=== PATIENT | male | born 1945 | race Caucasian/White ===

== ENCOUNTER → 2016-05-24 | Outpatient (CLI) | payer BC ==
[~2016-05-24] MED LIST: ASPI325T45 PO; ATEN-173 PO; ATOR-26 PO; IMDSR30 PO; LSN20 PO; MULT-506 PO; NRV5 PO; NTRGSL/4 UT; PLV75 PO
--- NOTE | 2016-05-25 06:36 | PAP/PSG TECHNICIAN REPORT ---
[facility] Bromination Equipment Operator Polysomnogram Report Study name: None Report date: 05/25/2016 Study date: 05/24/2016 Referring Physician: Juanis Peres M.D. Name: MARIMAR BALDWIN Interpreting Physician: Bucky Peres M.D. Date of : 1945 Bromination Equipment Operator: Kaylynn Herrera RPS. Sex: Male Age: 71 StudyType: PSG Weight: 218 lbs Height: 71 years, Height 5' 10" Neck Circum: 16 inches BMI: 31.28 Medications: Atorvastatin 80 mg, Aspirin 81 mg, Amlodipine 5 mg, lisinopril 20 mg, Flonase 50 mcg/ACT, Atenolol 25 mg, Plavix 75 mg, Imdur 60 mg, NitroStat 0.4 mg Patient History 71 yr. old male here for a possible split night sleep study in room 8. Patient complains of snoring. Patients [place] sleepiness scale score is 7/24. Parameters Monitored NPSG: E1-M2, E2-M1, Fp1-M2, Fp2-M1, F3-M2, F4-M2, F4-M1, C3-M2, C4-M2, C4-M1, O1-M2, O2-M2, O2-M1, T3-M2, T4-M1, P3-M2, P4-M1, CHIN1, CHIN2, HR, EKG, Legs, PFLOW, SNOR, FLOW, CFLOW, Tidal Volume, THOR, ABDO, SpO2, PLTH, CPRESS, ETCO2 Wave, ETCO2, pH Sleep Architecture Sleep Stages Time at Lights Off 10:49:11 PM STAGES Time (min.) TST (%) Time at Lights On 5:35:41 AM Wake 187.0 -- Total Recording Time (TRT) 406.50 min. N1 42.0 19 Total Sleep Period (TSP) 390.5 min. N2 173.0 79 Total Sleep Time (TST) 219.5min. N3 4.5 2 Awake Time 187.0 min. REM 0.0 0 Wake after Sleep Onset 172.0 min. Sleep Efficiency (SE) 54 % Sleep Onset Latency (SAMAN) 15.0 min. Number of Stage 1 Shifts None Awakenings 15 Stage Changes 50 Number of REM periods N/A REM 0.0 0 REM Latency NONE min. NREM 219.5 100 Body Position Analysis Supine Right Left Side Prone Vertical Total Sleep Time (min.) 397.1 0.0 0.0 0.00 0.0 9.4 Total Sleep Time (%) 100% 0% 0% 0 0% N/A% Total Sleep Time REM (min.) 0.0 0.0 0.0 None 0.0 0.0 Total Sleep Time NREM (min.) 219.5 0.0 0.0 None 0.0 0.0 Intermittent Wake (min.) 177.6 0.0 0.0 None 0.0 9.4 Total Sleep Period (%) 100% None None None None None Arousals Myoclonus (PLM) * Events Count Index Events Count Index Spontaneous 2 1 Events Awake (PLMW) 170 54.5 Respiratory 3 0.8 Events Asleep w/ Arousal (PLMA) 11 3.0 PLM 9 3 Events Asleep w/o Arousal (PLMS) 223 61.0 Snoring 0 0 Total Asleep 234 64.0 Total 14 4 Total 404 60 Respiratory Analysis * CA OA MA CH H RERA Total Count 1 4 0 0 30 0 35 Index 0.3 1.1 0.0 0 8.2 0 9.6 Mean Duration 17.4 22.3 0.0 0.00 24.0 0.0 23.6 Longest Duration 17.4 32.6 0.0 0.00 0.0 0.0 48.1 Respiratory Event Summary Total Supine ~Supine Right Left Prone REM NREM Apneas Count 5 5 N/A N/A N/A N/A N/A 5 Index 1.4 1 N/A N/A N/A N/A N/A 1 Hypopneas (4% Desat) Count 30 30 N/A N/A N/A N/A N/A 30 Index 8.2 8.2 N/A N/A N/A N/A N/A 8.2 Apneas & All Hypopneas Count 35 35 N/A N/A N/A N/A N/A 35 Index 9.6 10 N/A N/A N/A N/A N/A 9.6 Respiratory Events (Auditing Specialist+All Hyp+RERA) Count 35 35 N/A N/A N/A N/A N/A 35 Index 9.6 10 N/A N/A N/A N/A N/A 9.6 Respiratory Related Arousal Count 3 35 N/A N/A N/A N/A N/A 3 Index 0.8 1 N/A N/A N/A N/A N/A 1 Snoring Analysis Supine Right Left Prone REM NREM Total Snore duration 58.6 min Snores count 1,727 N/A N/A N/A N/A 1,727 1,727 Snore mean duration 2.0 Sec Snores index 472 N/A N/A N/A N/A 472.1 472.1 TST with snoring (%) 26.7% Desaturation Event Summary: Minimum %SpO2 Event Count Mean/Min/Max Duration(sec.) Desaturation Index % Time In Bed > 90 37 29.8 / 6.0 / 60.0 5.9 96.9 86 - 90 1 6.0 / 6.0 / 6.0 5.0 3.1 81 - 85 0 N/A 0.0 0.0 76 - 80 0 N/A 0.0 0.0 71 - 75 0 N/A 0.0 0.0 66 - 70 0 N/A 0.0 0.0 61 - 65 0 N/A 0.0 0.0 56 - 60 0 N/A 0.0 0.0 51 - 55 0 N/A 0.0 0.0 < 50 0 N/A 0.0 0.0 Total REM NREM Awake <50% 0.0 min. 0.0 min. 0.0 min. 0.0 min. 51 - 60% 0.0 min. 0.0 min. 0.0 min. 0.0 min. 61 - 70% 0.0 min. 0.0 min. 0.0 min. 0.0 min. 71 - 80% 0.0 min. 0.0 min. 0.0 min. 0.0 min. 81 - 90% 12.0 min. 0.0 min. 10.9 min. 1.2 min. 91 - 100% 373.9 min. 0.0 min. 208.6 min. 165.2 min. Average 93 0 93 93 Minimum SpO2 84 N/A 84 90 Desaturation Event Index 5.5 0.0 7.7 2.9 # Desat. Events below 89% 2 N/A 2 N/A Time(%) with Saturation below 89% 0.1 0.0 0.1 0.0 Time(min.) with Saturation below 89% 0.4 0.0 0.4 0.0 Time (mins) REM (mins) NREM (mins) % of TST SpO2 Below 90% 8 N/A N8 0.8 SpO2 Below 88% 0 0 0 0 Heart Rate Analysis Min (bpm) Max (bpm) Average (bpm) Awake 43 80 55 NREM 42 74 50 REM N/A N/A N/A Overall 42 74 50 Supplemental O2 Values Minimum O2 level: None Value Start Time End Time Bromination Equipment Operator Comments Mr. Baldwin slept in th supine positions.Cardiac arrhythmia and PLMs noted. No bruxism noted. Snoring was noted and scored as a 3 on a scale of 0 through 5. (0=no snoring, 5=snoring loud enough to be heard through a closed door or down the tim way) Mr. Baldwin awoke to use the restroom two times during the night. Mr. Baldwin stated, That was a fairly normal night. The final report will be interpreted and signed by a sleep physician. The completed physician report will then be placed in the patient medical record. Therapy (cm H2O) 0 TIB (min.) 406.5 TST (min.) 219.5 Sleep Onset (min.) 15.0 REM Onset From Sleep (min.) NONE Sleep Efficiency % 54 Wakefulness (%) 46 Wakefulness (min.) 187.0 NREM 1 (%) 19 NREM 1 (min.) 42.0 NREM 2 (%) 79 NREM 2 (min.) 173.0 NREM 3 (%) 2 NREM 3 (min.) 4.5 REM (%) 0 REM (min.) 0.0 # Arousals 14 Arousal Index 4 # Snore 1,727 Snore Index 472.1 AHI 9.6 AHI Supine 10 AHI Non-Supine N/A NREM AHI 9.6 REM AHI N/A RDI 9.6 # Obstructive Apnea 4 # Central Apnea 1 # Mixed Apnea 0 # Hypopneas 30 RERAs 0 Total Respiratory Events 36 Time Below SpO2 89% (min.) 0.4 Mean NREM SpO2 (%) 93 Mean REM SpO2 (%) N/A Mean Sleep SpO2 (%) 93 Min NREM SpO2 (%) 84 Min REM SpO2 (%) N/A Position Supine (min.) 397.1 Position Non-supine (min.) 0.0 LM Index Sleep 64.0 LM Index NREM 64.0 LM Index REM N/A Mean Heart Rate (bpm) 50 Min Heart Rate (bpm) 42
--- NOTE | 2016-06-05 18:37 | POLYSOMNOGRAPH REPORT ---
REFERRING PERSON: Dr. Jessica Peres. SILVER SOLUTION MIXER: Kaylynn Herrera. Mr. Napier is a 71-year-old male sent for a possible split night sleep study. He complains of snoring. His [place] Sleepiness Scale score on the evening of this study is 7. BMI is 31.28. Following the technical and digital specifications of the [place] [employer] (AASM) a standard diagnostic polysomnogram was performed monitoring EEG, EOG, EMG (chin and leg deviations), oxygen saturation, body position, digital video, respiratory effort and airflow. The sleep Stage and event scoring was based on the AASM Manual for the Scoring of Sleep and Associated Events 2007 edition. Apneas are defined as a drop in the peak thermal sensor excursion by >90% of baseline for at least 10 seconds. Hypopneas were scored using the 4% oxygen desaturation rule (4A-Medicare) and a decrease in the nasal pressure excursions by >30% of baseline for at least 10 seconds. Respiratory effort-related arousal (RERA's) is defined as a sequence of breaths lasting at least 10 seconds characterized by increasing respiratory effort or flattening of the nasal pressure waveform leading to an arousal from sleep when the sequence of breaths does not meet criteria for an apnea or hypopnea. Apnea Hypopnea index (AHI) is defined as the number of apneas and hypopneas occurring in an hour of sleep. Respiratory disturbance index (RDI) is defined as the number of apneas, hypopneas, and RERA's occurring in an hour of sleep. Mr. Napier's total sleep period time was 390.5 minutes. Total sleep time was 219.5 minutes. Sleep efficiency was 54%. Latency to sleep onset was 15 minutes with wake after sleep onset of 172 minutes. Total non-REM sleep time for the entire duration of this study was 219.5 minutes. He spent 19% of his sleep time in N1 sleep, 79% in N2 sleep and 2% in N3 sleep. This is abnormal sleep architecture with a propensity for superficial sleep. There were 14 arousals from sleep. 9 of these arousals were due to periodic limb movements, 3 were due to respiratory events, and 2 were spontaneous. There were 234 periodic limb movements noted on this test. Limb movement index was 64. Limb movement with arousal index was 3. There was 1 central, 4 obstructive and no mixed apneas on this test. There were 30 hypopneas and no RERA. Apnea-hypopnea index was elevated at 9.6. Supine AHI was 10. This was without any REM and essentially no N3 sleep. 1727 snoring events were recorded. Total sleep time with snoring was 26.7%. Mean saturation was 93% with desaturations briefly 84%; however, saturations were only less than 89% for 0.4 minutes of recording time. Heart rate and rhythm appeared to be irregular but not atrial fibrillation. Heart rates ranged from a low of 42 beats per minute to a high of 74 beats per minute. End tidal CO2 was not recorded on this test. IMPRESSION AND PLAN: A 71-year-old male with evidence of mild sleep apnea without nocturnal hypoxemia on this sleep study. The limitation of this test is that this patient had no REM and very little N3 sleep suggesting that he probably has a greater degree of apnea at home. 1. I would recommend that this patient be started on positive airway pressure therapy. He should return to the sleep lab for a full night titration and then based on those results be started on equipment at home. A download from his machine should be reviewed in 1 month both to check compliance as well as apnea-hypopnea index and further pressure adjustments can occur at that time. 2. Should this patient be unwilling or unable to tolerate CPAP therapy, he should be referred to ear, nose and throat or oral surgery/dental medicine (if appropriate) to discuss alternative treatments for sleep-disordered breathing.
== END | disposition home or self-care (01) ==
LOC: C.NEUR 21:00
PROVIDERS: ATTEND Family Medicine
DX: G47.33 Obstructive sleep apnea (adult) (pediatric) (principal)

== ENCOUNTER → 2016-09-06 | Outpatient (CLI) | payer BC ==
--- NOTE | 2016-09-07 06:18 | PAP/PSG TECHNICIAN REPORT ---
[facility] Title I Assistant Polysomnogram Report Study name: None Report date: 09/07/2016 Study date: 09/06/2016 Referring Physician: Juanis Peres M.D. Name: MARIMAR BALDWIN Victor M Interpreting Physician: Bucky Peres M.D. Date of : 1945 Title I Assistant: Ok Avina RPSGT. Sex: Male Age: 71 StudyType: PSG PAP Weight: 219 lbs Height: 71 years, Height 5' 10" BMI: 31.42 Medications: PLAVIX 75 MG, TENORMIN 25 MG, IMDUR 30 MG, COTCSLI855 MG, PRINIVIL 20 MG, LIPITOR 80 MG, ASPIRIN 81 MG, NORVASC 5 MG, FLONASE 50 MCG/ACT, NITROSTAT 0.4 MG Patient History PATIENT HAD A SLEEP STUDY DONE IN MAY OF 2016. HE WAS POSITIVE FOR JANUARY WITH AN AHI OF 9.6/HR. HE HAS BEEN WEARING CPAP BUT STILL HAS AN AHI OF 17.7/HR. HE IS HERE TODAY FOR A PRESSURE ADJUSTMENT AND POSSIBLY BIPAP. ESS = 8 RM 8 Parameters Monitored NPSG: E1-M2, E2-M1, Fp1-M2, Fp2-M1, F3-M2, F4-M2, F4-M1, C3-M2, C4-M2, C4-M1, O1-M2, O2-M2, O2-M1, T3-M2, T4-M1, P3-M2, P4-M1, CHIN1, CHIN2, HR, EKG, Legs, PFLOW, SNOR, FLOW, CFLOW, Tidal Volume, THOR, ABDO, SpO2, PLTH, CPRESS, ETCO2 Wave, ETCO2, pH Sleep Architecture Sleep Stages Time at Lights Off 10:43:51 PM STAGES Time (min.) TST (%) Time at Lights On 5:52:51 AM Wake 28.5 -- Total Recording Time (TRT) 429.50 min. N1 31.5 8 Total Sleep Period (TSP) 426.5 min. N2 282.5 71 Total Sleep Time (TST) 400.5min. N3 4.5 1 Awake Time 28.5 min. REM 82.0 20 Wake after Sleep Onset 26.0 min. Sleep Efficiency (SE) 93 % Sleep Onset Latency (SAMAN) 2.5 min. Number of Stage 1 Shifts None Awakenings 20 Stage Changes 78 Number of REM periods 4 REM 82.0 20 REM Latency 164.5 min. NREM 318.5 80 Body Position Analysis Supine Right Left Side Prone Vertical Total Sleep Time (min.) 429.0 0.0 0.0 0.00 0.0 0.0 Total Sleep Time (%) 100% 0% 0% 0 0% N/A% Total Sleep Time REM (min.) 82.0 0.0 0.0 None 0.0 0.0 Total Sleep Time NREM (min.) 318.5 0.0 0.0 None 0.0 0.0 Intermittent Wake (min.) 28.5 0.0 0.0 None 0.0 0.0 Total Sleep Period (%) 100% None None None None None Arousals Myoclonus (PLM) * Events Count Index Events Count Index Spontaneous 16 2 Events Awake (PLMW) 102 214.7 Respiratory 16 2.8 Events Asleep w/ Arousal (PLMA) 33 4.9 PLM 32 5 Events Asleep w/o Arousal (PLMS) 438 65.6 Snoring 0 0 Total Asleep 471 70.6 Total 64 10 Total 573 80 Respiratory Analysis * CA OA MA CH H RERA Total Count 94 2 12 0 94 3 202 Index 14.1 0.3 1.8 0 14.1 0 30.7 Mean Duration 19.8 13.0 53.1 0.00 27.6 21.5 25.3 Longest Duration 52.2 13.1 90.0 0.00 90.0 26.8 90.0 Respiratory Event Summary Total Supine ~Supine Right Left Prone REM NREM Apneas Count 108 108 N/A N/A N/A N/A 15 93 Index 16.2 16 N/A N/A N/A N/A 11 18 Hypopneas (4% Desat) Count 94 94 N/A N/A N/A N/A 7 87 Index 14.1 14.1 N/A N/A N/A N/A 5.1 16.4 Apneas & All Hypopneas Count 202 202 N/A N/A N/A N/A 22 180 Index 30.3 30 N/A N/A N/A N/A 16.1 33.9 Respiratory Events (Package Designer+All Hyp+RERA) Count 202 205 N/A N/A N/A N/A 22 180 Index 30.7 31 N/A N/A N/A N/A 16.1 34.5 Respiratory Related Arousal Count 16 205 N/A N/A N/A N/A 0 19 Index 2.8 3 N/A N/A N/A N/A 0 4 Snoring Analysis Supine Right Left Prone REM NREM Total Snore duration 3.4 min Snores count 133 N/A N/A N/A 8 125 133 Snore mean duration 1.5 Sec Snores index 20 N/A N/A N/A 5.9 23.5 19.9 TST with snoring (%) 0.9% Desaturation Event Summary: Minimum %SpO2 Event Count Mean/Min/Max Duration(sec.) Desaturation Index % Time In Bed > 90 156 32.8 / 8.5 / 107.7 22.5 97.1 86 - 90 0 N/A 0.0 2.1 81 - 85 0 N/A 0.0 0.8 76 - 80 0 N/A 0.0 0.0 71 - 75 0 N/A 0.0 0.0 66 - 70 0 N/A 0.0 0.0 61 - 65 0 N/A 0.0 0.0 56 - 60 0 N/A 0.0 0.0 51 - 55 0 N/A 0.0 0.0 < 50 0 N/A 0.0 0.0 Total REM NREM Awake <50% 0.0 min. 0.0 min. 0.0 min. 0.0 min. 51 - 60% 0.0 min. 0.0 min. 0.0 min. 0.0 min. 61 - 70% 0.0 min. 0.0 min. 0.0 min. 0.0 min. 71 - 80% 0.1 min. 0.1 min. 0.0 min. 0.0 min. 81 - 90% 12.4 min. 7.5 min. 4.8 min. 0.0 min. 91 - 100% 416.4 min. 74.4 min. 313.6 min. 28.4 min. Average 95 94 95 96 Minimum SpO2 79 79 82 91 Desaturation Event Index 21.8 16.1 24.3 14.7 # Desat. Events below 89% 14 9 5 N/A Time(%) with Saturation below 89% 1.5 1.2 0.3 0.0 Time(min.) with Saturation below 89% 6.3 5.1 1.2 0.0 Time (mins) REM (mins) NREM (mins) % of TST SpO2 Below 90% 30 12 N18 2.2 SpO2 Below 88% 14 0 0 1 Heart Rate Analysis Min (bpm) Max (bpm) Average (bpm) Awake 37 69 49 NREM 37 60 43 REM 36 74 43 Overall 36 74 43 Supplemental O2 Values Minimum O2 level: None Value Start Time End Time Title I Assistant Comments Mr. Baldwin slept in the supine position. PAC's noted. Leg movements noted. No bruxism noted. CPAP was initiated at +4 CMH2O and up-titrated to a level of 8 CMH2O. Central and mixed apneas were noted so I switched to Bipap. I increased to 10/6 and then added a rate of 12 due to continued central and mixed apneas. I increased the rate up to 18 due to continued central and mixed apneas. Also, increased BIPAP to 19/10 due to apneas and hypopneas. A Cinemur and Transporeon Simplus size medium full face maske was used during titration Mr. Baldwin awoke to use the restroom 0 times during the night. Mr. Baldwin stated I slept as well as I do when I am in my own bed. I added a rate of 12 around 12:55 am. I increased the rate up to 18, which was around 1: 44am. The final report will be interpreted and signed by a sleep physician. The completed physician report will then be placed in the patient medical record. Therapy Event: Therapy (cm H20) 4 6 7 8 8/4 9/5 10/6 11/7 Total Time at Pressure (min.) 1.4 50.7 16.5 12.7 11.4 7.1 31.8 17.3 TST at Pressure (min.) 0.0 49.7 16.5 12.7 7.4 7.1 17.8 15.8 # Periods 1 1 1 1 1 1 1 1 Sleep Onset (min.) N/A 1.1 0.0 0.0 0.0 0.0 0.0 0.0 REM Onset (min.) N/A N/A N/A N/A N/A N/A N/A N/A Sleep Efficiency % 0 97 100 100 64 100 56 91 Wakefulness (%) 100.0 2.1 0.0 0.0 35.2 0.0 44.0 8.7 Wakefulness (min.) 1.4 1.1 0.0 0.0 4.0 0.0 14.0 1.5 NREM 1 (%) 0.0 3.0 0.0 0.0 15.7 10.0 25.2 14.5 NREM 1 (min.) 0.0 1.5 0.0 0.0 1.8 0.7 8.0 2.5 NREM 2 (%) 0.0 95.0 100.0 100.0 49.2 90.0 30.8 76.9 NREM 2 (min.) 0.0 48.2 16.5 12.7 5.6 6.4 9.8 13.3 NREM 3 (%) 0.0 0.0 0.0 0.0 0.0 0.0 0.0 0.0 NREM 3 (min.) 0.0 0.0 0.0 0.0 0.0 0.0 0.0 0.0 REM (%) 0.0 0.0 0.0 0.0 0.0 0.0 0.0 0.0 REM (min.) 0.0 0.0 0.0 0.0 0.0 0.0 0.0 0.0 # Arousals N/A 0 4 0 3 5 18 6 Arousal Index N/A 0.0 14.5 0.0 24.4 42.0 60.7 22.8 # Snore N/A 10 53 25 2 9 5 6 Snore Index N/A 12.1 192.6 117.7 16.3 75.5 16.9 22.8 AHI N/A 9.7 32.7 37.7 24.4 58.7 47.2 41.8 AHI Supine N/A 9.7 32.7 37.7 24.4 58.7 47.2 41.8 AHI Non-Supine N/A N/A N/A N/A N/A N/A N/A N/A NREM AHI N/A 9.7 32.7 37.7 24.4 58.7 47.2 41.8 REM AHI N/A N/A N/A N/A N/A N/A N/A N/A RDI N/A 9.7 32.7 37.7 24.4 58.7 50.6 41.8 # Obstructive N/A 0 0 0 0 2 0 0 # Central Ap N/A 6 7 6 2 5 11 9 # Mixed N/A 0 0 0 0 0 0 0 # Hypopneas N/A 2 2 2 1 0 3 2 RERAS N/A 0 0 0 0 0 1 0 Total Respiratory Events N/A 8 9 8 3 7 15 11 Time Below SpO2 89.00% (min.) 0.0 0.0 0.0 0.0 0.0 0.0 0.0 0.0 Mean NREM SpO2 (%) N/A 94 96 96 95 95 95 95 Mean REM SpO2 (%) N/A N/A N/A N/A N/A N/A N/A N/A Mean Sleep SpO2 (%) N/A 94 96 96 95 95 95 95 Min NREM SpO2 (%) N/A 91 93 93 93 91 90 89 Min REM SpO2 (%) N/A N/A N/A N/A N/A N/A N/A N/A Position Supine (min.) 0.0 49.7 16.5 12.7 7.4 7.1 17.8 15.8 Position Non-supine (min.) 0.0 0.0 0.0 0.0 0.0 0.0 0.0 0.0 LM Index Sleep N/A 102.7 141.7 150.7 162.7 134.3 165.3 83.6 LM Index NREM N/A 102.7 141.7 150.7 162.7 134.3 165.3 83.6 LM Index REM N/A N/A N/A N/A N/A N/A N/A N/A Mean Heart Rate (bpm) N/A 44 43 43 44 43 44 46 Min Heart Rate (bpm) N/A 38 38 37 39 37 37 37 Therapy (cm H20) 12/8 13/8 14/9 15/9 16/9 17/9 18/10 19/10 Total Time at Pressure (min.) 11.4 8.9 45.6 9.7 14.0 19.3 109.3 61.8 TST at Pressure (min.) 11.4 8.9 45.6 9.7 14.0 17.8 105.8 60.3 # Periods 1 1 1 1 1 1 1 1 Sleep Onset (min.) 0.0 0.0 0.0 0.0 0.0 0.0 0.0 0.0 REM Onset (min.) N/A 6.6 0.0 N/A N/A 9.4 51.1 2.3 Sleep Efficiency % 100 100 100 100 100 92 96 97 Wakefulness (%) 0.0 0.0 0.0 0.0 0.0 7.8 3.2 2.4 Wakefulness (min.) 0.0 0.0 0.0 0.0 0.0 1.5 3.5 1.5 NREM 1 (%) 0.0 0.0 0.0 0.0 0.0 10.4 11.0 4.9 NREM 1 (min.) 0.0 0.0 0.0 0.0 0.0 2.0 12.0 3.0 NREM 2 (%) 100.0 73.9 62.3 53.6 100.0 53.4 75.8 18.2 NREM 2 (min.) 11.4 6.6 28.4 5.2 14.0 10.3 82.8 11.3 NREM 3 (%) 0.0 0.0 0.0 46.4 0.0 0.0 0.0 0.0 NREM 3 (min.) 0.0 0.0 0.0 4.5 0.0 0.0 0.0 0.0 REM (%) 0.0 26.1 37.7 0.0 0.0 28.5 10.1 74.5 REM (min.) 0.0 2.3 17.2 0.0 0.0 5.5 11.0 46.0 # Arousals 2 0 0 1 0 0 22 3 Arousal Index 10.5 0.0 0.0 6.2 0.0 0.0 12.5 3.0 # Snore 2 2 5 0 1 0 9 4 Snore Index 10.5 13.5 6.6 0.0 4.3 0.0 5.1 4.0 AHI 47.2 67.7 50.0 37.1 17.2 43.8 31.2 7.0 AHI Supine 47.2 67.7 50.0 37.1 17.2 43.8 31.2 7.0 AHI Non-Supine N/A N/A N/A N/A N/A N/A N/A N/A NREM AHI 47.2 73.3 59.1 37.1 17.2 48.7 31.6 21.0 REM AHI N/A 51.9 34.9 N/A N/A 32.7 27.3 2.6 RDI 47.2 67.7 50.0 43.3 17.2 43.8 31.8 7.0 # Obstructive 0 0 0 0 0 0 0 0 # Central Ap 5 7 16 0 0 1 19 0 # Mixed 0 1 9 0 0 0 2 0 # Hypopneas 4 2 13 6 4 12 34 7 RERAS 0 0 0 1 0 0 1 0 Total Respiratory Events 9 10 38 7 4 13 56 7 Time Below SpO2 89.00% (min.) 0.1 0.3 1.3 0.0 0.0 0.7 2.4 1.6 Mean NREM SpO2 (%) 94 94 95 94 95 95 95 95 Mean REM SpO2 (%) N/A 93 94 N/A N/A 94 94 93 Mean Sleep SpO2 (%) 94 94 94 94 95 95 95 94 Min NREM SpO2 (%) 88 87 91 91 92 91 82 87 Min REM SpO2 (%) N/A 87 81 N/A N/A 82 79 81 Position Supine (min.) 11.4 8.9 45.6 9.7 14.0 17.8 105.8 60.3 Position Non-supine (min.) 0.0 0.0 0.0 0.0 0.0 0.0 0.0 0.0 LM Index Sleep 78.7 27.1 15.8 24.8 98.9 114.5 53.9 20.9 LM Index NREM 78.7 36.6 2.1 24.8 98.9 112.0 52.5 63.1 LM Index REM N/A 0.0 38.4 N/A N/A 120.0 65.5 7.8 Mean Heart Rate (bpm) 44 40 40 41 42 43 43 44 Min Heart Rate (bpm) 37 37 36 38 38 38 37 37
--- NOTE | 2016-09-26 18:23 | POLYSOMNOGRAPH REPORT ---
REFERRING PERSON: Dr. Jessica Peres. SANDSTONE INSPECTOR REPAIRER: Ok Avina. Mr. Napier is a 71-year-old male who had a baseline sleep study performed in May 2016, which showed an AHI of 9.6. He has been using CPAP since that time; however, on subsequent downloads, was noted to have elevated AHI with an average AHI of 17.7. He is here to see if he may need bilevel therapy or pressure adjustment. Following the technical and digital specifications of the [place] [employer] (AASM) a standard diagnostic polysomnogram was performed monitoring EEG, EOG, EMG (chin and leg deviations), oxygen saturation, body position, digital video, respiratory effort and airflow. The sleep Stage and event scoring was based on the AASM Manual for the Scoring of Sleep and Associated Events 2007 edition. Apneas are defined as a drop in the peak thermal sensor excursion by >90% of baseline for at least 10 seconds. Hypopneas were scored using the 4% oxygen desaturation rule (4A-Medicare) and a decrease in the nasal pressure excursions by >30% of baseline for at least 10 seconds. Respiratory effort-related arousal (RERA's) is defined as a sequence of breaths lasting at least 10 seconds characterized by increasing respiratory effort or flattening of the nasal pressure waveform leading to an arousal from sleep when the sequence of breaths does not meet criteria for an apnea or hypopnea. Apnea Hypopnea index (AHI) is defined as the number of apneas and hypopneas occurring in an hour of sleep. Respiratory disturbance index (RDI) is defined as the number of apneas, hypopneas, and RERA's occurring in an hour of sleep. Mr. Napier's total sleep period time was 400.5 minutes. Total sleep time was 426.5 minutes. Sleep efficiency was 93%. Latency to sleep onset was 2.5 minutes with wake after sleep onset was 26 minutes. Total non-REM sleep time was 318.5 minutes. He spent 8% of that time in N1 sleep, 71% in N2 sleep and 1% in N3 sleep. REM latency was 164.5 minutes. Total REM sleep time was 82 minutes or 20% of total sleep time. There were 64 cortical arousals from sleep. 16 of these arousals were spontaneous, 16 were due to respiratory events, 32 due to periodic limb movements of sleep and there were no snoring-related arousals. There were 471 periodic limb movements noted on this test. Limb movement index was 70.6. Limb movement with arousal index was 4.9. On this titration, there were 94 central apneas, 2 obstructive apneas and 12 mixed apnea. Additionally, there were 94 hypopneas and 3 RERA. The overall apnea-hypopnea index on this titration was 30.3. 133 snoring events were recorded. Total sleep time with snoring was 0.9%. Mean saturation was 95% with desaturations to 79%. Saturations were less than 89% for 6.3 minutes of recorded time. There was no cardiac ectopy noted on this study other than occasional premature atrial complexes. He was started on a CPAP pressure of 4 and titrated to a CPAP pressure of 8 over the early portion of the night. During that time, the patient had very few obstructive apneas, but several central apneas. Therefore, he was switched to bilevel therapy. He was titrated from a BIPAP pressure of 8/4 to 10/6 and due to continued central events, backup rate was then added and he was started on a rate of 12. Increasing pressures were needed to prevent apneas, both central and obstructive and hypopneas. Backup rate was also needed to be increased to address the central apneas. He was observed on a pressure of 19/10 for 60.3 minutes of recorded time. AHI and RDI on this pressure were both 7 and saturations were less than 89% for 1.6 minutes of recording time. There were 7 hypopneas and no central apnea on this pressure. Backup rate on this pressure was 18. IMPRESSION AND PLAN: Improved sleep disordered breathing, but it appears that this patient has complex sleep apnea. I would recommend that he be started on BiPAP ST at 19/10 with a backup rate of 18. A download from his machine can be reviewed in 1 month both to check compliance as well as AHI and further pressure adjustments can occur at that time.
== END | disposition home or self-care (01) ==
LOC: C.NEUR 21:00
PROVIDERS: ATTEND Family Medicine
DX: G47.33 Obstructive sleep apnea (adult) (pediatric) (principal)

== ENCOUNTER → 2016-09-28 | Outpatient (CLI) | payer BC ==
[2015-10-01 14:07] VITALS: BP 176/111; PULSE 63
[2016-09-28 14:06] VITALS: BP 151/82; PULSE 63; TEMP 36.9; O2SAT 97
--- NOTE | 2016-09-28 14:59 | Radiation Oncology Follow-Up ---
Radiation Oncology Follow-Up Date of Visit Sep 28, 2016. Reason For Visit Annual follow-up Radiation Completion Date Monotherapy - 03/04/14 Diagnosis (1) Adenocarcinoma of prostate Status: Resolved Onset Date: 12/28/2012 Stage: ll Permanent Comment: Rising PSA, pretreatment PSA 5.05 Status post ultrasound-guided biopsies number the 2012 Adenocarcinoma with [place] 3+3 Lupron injection 03/27/2013 to downsize the prostate Status post prostate seed implant 03/04/2014 as monotherapy. He received 115 Gy , 86 seeds were placed Last Edited By: Maggie Rios on Sep 28, 2016 14:54 History of Present Illness Mr. Limon is a 67-year-old gentleman who was diagnosed with a low risk prostate cancer, [place] grade 3+3, presenting prostate-specific antigen 5.05 and biopsy stage TIIa. He opted to undergo a prostate seed implant. At the time of his arch study is gland was found to be too large. The patient was therefore started on a course of hormonal suppression to shrink his prostate gland. This ultimately succeeded and the patient was scheduled for a prostate seed implant on 03/04/2014. He was treated with Cesium 131 receiving a dose of 115 Gy. The patient ultimately tolerated the procedure well. Interim History He has been doing well over this past year. He denies any change in urinary status. He gave an AUA score of 1. He completed and expanded prostate cancer index composite for clinical practice and gave a score of 0 of 12 and urinary incontinent symptoms. He gave a score of one of 12 and urinary irritation symptoms. He gave a score of 0 of 12 bowel symptoms. He gave a score of 2 of 12 sexual symptoms. He gave a score of 0 of 12 in hormonal vitality symptoms. His total was 3 of 60. His last PSA was 10/01/2015 and was 0.072. Allergies Coded Allergies: No Known Allergies (Unverified , 06/15/15) Home Medications Scheduled Amlodipine Besylate (Amlodipine Besylate), 5 MG PO QAM Aspirin (Aspirin), 325 MG PO DAILY Atenolol (Tenormin), 25 MG PO DAILY Atorvastatin (Lipitor), 80 MG PO DAILY Clopidogrel Bisulfate (Clopidogrel), 75 MG PO QAM Isosorbide Mononitrate (Isosorbide Mononitrate ER), 60 MG PO QAM Lisinopril (Lisinopril), 20 MG PO DAILY Multivitamin (Multivitamin), 1 TAB PO DAILY Scheduled PRN Nitroglycerin (Nitrostat), 0.4 MG UT PRN PRN for Chest Pain Review of Systems Gastrointestinal: Symptoms: WNL Oral: Symptoms: No Problems Respiratory: Symptoms: WNL Urinary: Symptoms: WNL, Nocturia Comments: See AUA & EPIC Skin: Symptoms: No Problems Physical Exam Vital Signs Date Time Temp Pulse Resp B/P (MAP) Pulse Ox O2 Delivery O2 Flow Rate FiO2 09/28/16 14:06 36.9 63 16 151/82 97 Pain: Side: Bilateral Patient Pain Scale: 0 - 10 Initial Pain Intensity: 0.0 Fatigue: None General Appearance: no apparent distress Eyes: normal inspection, EOMI ENT: normal ENT inspection, hearing grossly normal Neck: no adenopathy, thyroid normal Respiratory/Chest: lungs clear, no respiratory distress, no accessory muscle use Cardiovascular: regular rate, rhythm, no gallop, no murmur Abdomen: non tender, soft Anal / Rectum: Normal sphincter tone. Prostate consistent with seed implant. No rectal masses no rectal bleeding. Prostate enlarged. Extremities: no pedal edema Neurologic/Psychiatric: no motor/sensory deficits, alert, normal mood/affect Skin: warm/dry Laboratory Studies Test 09/28/16 14:15 Assessment & Plan Plan: PSA was drawn today prior to examination. He'll be notified as to results. Continue follow-up with his primary care physician and Dr. Tan. We asked him to return to our office in 1 year. He may call if he has any question or concerns in the interim. Total Time In Follow-Up I spent 20 minutes speaking to the patient and performing examination. I spent 15 minutes reviewing information and completeness note. Copy To Avi Tan MD; Leanne Taylor M.D.
== END | disposition home or self-care (01) ==
LOC: C.ONC 13:57
PROVIDERS: ATTEND Physician Assistant Medical
DX: Z08 Encounter for follow-up examination after completed treatment for malignant neoplasm (principal); Z92.3 Personal history of irradiation; Z85.46 Personal history of malignant neoplasm of prostate

== ENCOUNTER → 2017-02-21 | Outpatient (CLI) | payer BC | END | disposition home or self-care (01) | LOC: C.LABBC 12:29 | PROVIDERS: ATTEND Urology | DX: R39.9 Unspecified symptoms and signs involving the genitourinary system (principal) ==

== ENCOUNTER → 2017-09-28 | Outpatient (CLI) | payer BC ==
[~2017-09-28] MED LIST changes: +ASPECOTC PO; -ASPI325T45 PO; +LISI-726 PO; -LSN20 PO
[2017-09-28 14:41] VITALS: BP 110/74; PULSE 71; TEMP 36.1; O2SAT 98
--- NOTE | 2017-09-28 16:01 | Radiation Oncology Follow-Up ---
Radiation Oncology Follow-Up Date of Visit Sep 28, 2017. Reason For Visit Annual follow-up Radiation Completion Date 03/04/14 monotherapy Diagnosis (1) Adenocarcinoma of prostate Status: Resolved Onset Date: 12/28/2012 Stage: ll (Biopsy stage) Permanent Comment: Rising PSA, pretreatment PSA 5.05 Status post ultrasound-guided biopsies number the 2012 Adenocarcinoma with [place] 3+3 Lupron injection 03/27/2013 to downsize the prostate Status post prostate seed implant 03/04/2014 as monotherapy. He received 115 Gy , 86 seeds were placed Last Edited By: Maggie Rios on Sep 28, 2016 14:54 Interim History He has been doing well over this past year. He denies any difficulty with urination. He gave an AUA score of 0. He completed and expanded prostate cancer index composite for clinical practice and gave a score of 1 of 12 and urinary incontinence symptoms. He gave a score of 0 12 and urinary irritation symptoms. He gave a score of 0 12 and bowel symptoms. He gave a score of 2 of 12 and sexual symptoms. He gave a score of 0 12 and hormonal vitality symptoms. His total was 3 of 60. His last PSA was February 21, 2017 and that was 0.053. Allergies Coded Allergies: No Known Allergies (Unverified , 06/15/15) Home Medications Scheduled Amlodipine Besylate (Amlodipine Besylate), 5 MG PO QAM Aspirin (Aspirin), 325 MG PO DAILY Atenolol (Tenormin), 25 MG PO DAILY Atorvastatin (Lipitor), 80 MG PO DAILY Clopidogrel Bisulfate (Clopidogrel), 75 MG PO QAM Isosorbide Mononitrate (Isosorbide Mononitrate ER), 60 MG PO QAM Lisinopril (Lisinopril), 20 MG PO DAILY Multivitamin (Multivitamin), 1 TAB PO DAILY Scheduled PRN Nitroglycerin (Nitrostat), 0.4 MG UT PRN PRN for Chest Pain Review of Systems Gastrointestinal: Symptoms: WNL Oral: Symptoms: No Problems Respiratory: Symptoms: WNL Urinary: Symptoms: WNL Skin: Symptoms: No Problems Physical Exam Vital Signs Date Time Temp Pulse Resp B/P (MAP) Pulse Ox O2 Delivery O2 Flow Rate FiO2 09/28/17 14:41 36.1 71 16 110/74 98 Fatigue: None General Appearance: no apparent distress Eyes: normal inspection, EOMI ENT: normal ENT inspection, hearing grossly normal Respiratory/Chest: lungs clear, no respiratory distress, no accessory muscle use Cardiovascular: regular rate, rhythm, no gallop, no murmur Abdomen: non tender, soft, no organomegaly Anal / Rectum: Rectal examination reveals internal and external hemorrhoids. Prostate is consistent with a seed implant. There are no rectal masses and no rectal bleeding. Extremities: no pedal edema Neurologic/Psychiatric: no motor/sensory deficits, alert, normal mood/affect Skin: warm/dry Pain Management Patient Reports Pain: No Initial Pain Intensity: 0.0 Pain Management Plan He denies pain therefore requires no pain management. Laboratory Laboratory Results: not applicable Pathology Pathology Results: not applicable Imaging Imaging Studies: not applicable Assessment & Plan Plan: Continue regular follow-up with Dr. Tan and his primary care provider. Continue PSAs every 6 months. PSA was drawn today prior to examination. He will be notified as to results. We asked him to return to our office in 1 year. He may call if he has any questions or concerns in the interim. Total Time In Follow-Up I spent 20 minutes speaking to the patient in performing examination. I spent 15 minutes reviewing information and completing this note. Copy To Avi Tan MD; Leanne Taylor M.D.
== END | disposition home or self-care (01) ==
LOC: C.ONC 14:21
PROVIDERS: ATTEND Physician Assistant Medical
DX: Z08 Encounter for follow-up examination after completed treatment for malignant neoplasm (principal); Z92.3 Personal history of irradiation; Z85.46 Personal history of malignant neoplasm of prostate

== ENCOUNTER 2021-01-31 12:34 | Inpatient (IN) ==
[2021-01-31] MEDS ORDERED: SODIUM CHLORIDE 0.9% 500 ML IV SCH (12:45)
[2021-01-31 13:16] LABS: Basophils # (auto) 0.01 K/uL (0-0.2); Basophils % (auto) 0.1 %; Eosinophils # (auto) 0.04 K/uL (0-0.5); Eosinophils % (auto) 0.5 %; Hematocrit (blood only) 40.9 % (42-52); Hemoglobin 13.5 g/dL (14.0-18.0); Immature Granulocytes # (auto) 0.09 K/uL (0.00-0.02); Immature Granulocytes % (auto) 1.1 %; Lymphocytes # (auto) 1.02 K/uL (1.2-3.4); Lymphocytes % (auto) 12.1 %; Mean Corpuscular Hemoglobin 31.9 pg (25-34); Mean Corpuscular Volume 96.7 fL (80-100); Mean Platelet Volume 9.5 fL (7.4-10.4); Monocytes # (auto) 0.71 K/uL (0.11-0.59); Monocytes % (auto) 8.4 %; Neutrophils # (auto) 6.55 K/uL (1.4-6.5); Neutrophils % (auto) 77.8 %; Platelet Count 291 K/uL (130-400); RDW Coefficient of Variation 12.9 % (11.5-14.5); RDW Standard Deviation 45.7 fL (36.4-46.3); Red Blood Count 4.23 M/uL (4.7-6.1); White Blood Count 8.42 K/uL (4.8-10.8)
[2021-01-31 13:26] LABS: Partial Thromboplastin Time 27.6 Seconds (21.0-31.0); Prothrombin Time 10.2 Seconds (9.0-12.0)
--- NOTE | 2021-01-31 13:34 | CT Scan Report ---
CT head/brain wo con CLINICAL HISTORY: 75 years-old Male with AMS. Acutely altered mental status TECHNIQUE: Multiple axial CT images of the head were obtained without contrast. A dose lowering tech nique was utilized adhering to the principles of ALARA. COMPARISON: None. FINDINGS: No acute intracranial hemorrhage, midline shift, intracranial mass, hydrocephalus, territorial ischem ia or abnormal extra-axial collection. Motion degraded exam. The study was then repeated. Calcificati ons of the falx cerebri. Age-related involutional changes. White matter hypodensities suggestive of c hronic microvascular ischemic disease. The calvarium is intact. Prior bilateral lens repair. The paranasal sinuses, mastoid air cells, and m iddle ear cavities are clear. IMPRESSION: Motion degraded exam. No acute intracranial abnormality identified. ACT 112: Negative or not required by law. The above report was generated using voice recognition software. It may contain grammatical, syntax o r spelling errors. Electronically signed by: Arsh Bernal M.D. 01/31/2021 1:33 PM
--- NOTE | 2021-01-31 13:35 | Emergency Department Note ---
Impression & Plan Acute urinary retention, Hydronephrosis, Urinary tract infection, Acute alteration in mental status, Dementia, Agitation ED Provider Note NAME: MARIMAR BALDWIN AGE: 75 SEX: M : 1945 ARRIVES VIA: Ambulance INFORMANT: Patient, EMS ED PROVIDER(S): David Morejon DO CHIEF COMPLAINT: Altered mental status the patient is a 75-year-old male who presented to emergency department for an evaluation of altered mental status. The patient states that HPI: He feels fine at this time. Additional history was obtained from the terrell lea's family member as well as EMS. The patient has a history of dementia. His daughter left to do some shopping and when she returned she found him slumped over and confused. According to the prehospital personnel the patient has had no complaints. To my exam the patient has no complaints. He denies having any chest pain or difficulty breathing. He states he has no weakness or headache. The patient has been compliant with his usual medications reportedly. The patient does have a history of underlying dementia but his family member was adamant that this is not how his normal confusion presents. There is been no reported fever. ROS: See above HPI for pertinent positives & negatives. A total of 10 systems reviewed and were otherwise negative. PAST MEDICAL HISTORY: See Below PAST SURGICAL HISTORY: See Below FAMILY HISTORY: See Below SOCIAL HISTORY: See Below HOME MEDICATIONS: See Below ALLERGIES: See Below VITALS: See Below PHYSICAL EXAMINATION: GENERAL: The patient is awake and looking around the room. He answers questions slowly. He is confused at times. EYES: The conjunctivae are clear. The pupils are round and reactive. EARS, NOSE, MOUTH AND THROAT: The nose is without any evidence of any deformity. Mucous membranes are dry. NECK: The neck is nontender and supple. RESPIRATORY: Normal respiratory effort is noted there is no evidence of wheezing rhonchi or rales CARDIOVASCULAR: Regular rate and rhythm noted there no murmurs rubs or gallops normal S1 normal S2. GASTROINTESTINAL: The abdomen is soft. Abdomen is nontender. MUSCULOSKELETAL/EXTREMITIES: There is no evidence of gross deformity full range of motion is noted in the hips and shoulders. SKIN: There is no obvious evidence of any rash. There are no petechiae, pallor or cyanosis noted. NEUROLOGIC: Patient is awake and oriented to person but not place time or situation. The patient moves all extremities well. MEDICAL DECISION MAKING: The patient is a 75-year-old male who presented to emergency department for an evaluation of altered mental status. The patient at times is agitated but also somnolent at home. He did have abdominal pain on physical exam. The patient was found to have urinary retention with bilateral hydronephrosis. This was likely due to bladder outlet obstruction. I discussed the patient's laboratory and radiographic studies with him and his daughter. He needed the Schaffer catheter but given his dementia he would not leave the Schaffer catheter alone. I was concerned he might try to remove the Schaffer catheter traumatically. Talking to the daughter it sounds though she would like him to be placed and has trouble managing him at home. For this reason I discussed his case with the on-call [facility]. They have agreed to evaluate the patient in the emergency department for further management and disposition. The patient did require some sedation as well as chemical and physical restraint at one point. Once he was treated with Haldol and Benadryl he was much more relaxed and able to be released of the restraints. The family member was present when this occurred. The patient was pulling at the Schaffer catheter and physically threatening to the nursing staff. He was sedated for self as well as staff protection. Triage Nursing notes reviewed. Prior medical records reviewed Vital Signs: reviewed and remarkable for no significant abnormalities Differential diagnosis: Infection, hypoglycemia, electrolyte abnormalities, overdose, toxicologic, cardiac sources, intracerebral event, neurologic, trauma, as well as other pathologies. ER treatment provided: See below Diagnostics interpreted by me: ECG: EKG was obtained in the emergency department. My interpretation is sinus rhythm at 68 bpm. PACs were noted. LVH was suggested by voltage criteria. There is no acute ST segment abnormalities noted. This was compared to a tracing from June 162015. The ectopy was new compared to the earlier tracing otherwise no changes were noted Cardiac Monitoring: An order was placed for continuous cardiac monitoring. The monitor shows a rate of 83 BPM with sinus rhythm. Laboratory studies: As stated above and show below. Imaging studies: See below Consultation(s): I discussed his case with Jenn[facility] will [facility] the patient in the emergency department. Past Med/Surg History Medical History (Updated 01/31/21 @ 19:36 by David Morejon DO) Adenocarcinoma of prostate (12/28/12) "Rising PSA, pretreatment PSA 5.05 Status post ultrasound-guided biopsies number the 2012 Adenocarcinoma with Harman 3+3 Lupron injection 03/27/2013 to downsize the prostate Status post prostate seed implant 03/04/2014 as monotherapy. He received 115 Gy, 86 seeds were placed" CAD (coronary artery disease) "s/p CABG 1998" CKD (chronic kidney disease), stage III Dementia History of kidney stones Hyperlipidemia Hypertension JANUARY (obstructive sleep apnea) Surgical History H/O colonoscopy with polypectomy H/O prostate biopsy History of lumbar surgery S/P CABG (coronary artery bypass graft) "x2 in 1998" S/P cardiac catheterization "in setting of NSTEMI 06/2014- POBA to OM" Family History (Updated 01/31/21 @ 15:46 by Melany Cruz PA-C) Father Heart disease Brother Heart disease Hypertension Mother Heart disease Social History (Updated 01/31/21 @ 15:46 by Melany Cruz PA-C) Smoking Status: Former smoker Hx Alcohol Use: No Hx Substance Use: No Feels Safe at Home: Yes Allergies Allergies Allergy/AdvReac Type Severity Reaction Status Date / Time No Known Allergies Allergy Unverified 01/31/21 15:40 Home Meds Home Medications Medication Instructions Recorded Confirmed amlodipine 2.5 mg tablet 2.5 mg PO QAM 08/28/18 01/31/21 aspirin 81 mg chewable tablet 81 mg PO QAM 08/28/18 01/31/21 atorvastatin 80 mg tablet 80 mg PO QAM 08/28/18 01/31/21 isosorbide mononitrate 30 mg 30 mg PO QAM 08/28/18 01/31/21 tablet,extended release 24 hr lisinopril 20 mg tablet 20 mg PO BID 08/28/18 01/31/21 nitroglycerin 0.4 mg sublingual 0.4 mg SUBLINGUAL DIRECTED PRN 08/28/18 01/31/21 tablet metoprolol succinate 25 mg 12.5 mg PO QAM tab 10/02/18 01/31/21 tablet,extended release 24 hr (Toprol XL) multivitamin 1 tab PO QAM 01/31/21 01/31/21 Results & Data (ED) Vital Signs Vital Signs - 24 hr 01/31/21 12:23 01/31/21 14:55 01/31/21 16:00 Temperature 36.8 C Temperature Source Oral Pulse Rate 62 Pulse Rate [Apical] 94 H 83 Pulse Rhythm Regular Pulse Rhythm [Apical] Regular Regular Pulse Strength [Apical] Normal Normal Respiratory Rate 18 18 14 Respiratory Effort / Characteristics Non-Labored Non-Labored Spontaneous Non-Labored Respiratory Depth Normal Normal Normal Respiratory Pattern Regular Regular Blood Pressure 161/111 H Blood Pressure [Right Arm] 186/98 H 112/70 Blood Pressure Mean 127 Blood Pressure Mean [Right Arm] 127 84 Blood Pressure Position Lying Blood Pressure Position [Right Arm] Lying Lying Pulse Oximetry 100 98 Oxygen Delivery Method Room Air Room Air Sepsis Recent Fever Within 48 Hours No Sepsis New/Unexplained Change in Mental Status N/A Sepsis Action Taken by Nursing No Action Required Home Medications Current Medication List: was personally reviewed by me Laboratory Data Attestation: I reviewed the patient's lab results. Result diagrams: 01/31/21 12:55 01/31/21 12:55 Lab Results 01/31/21 01/31/21 01/31/21 Range/Units 12:55 12:55 12:55 WBC 8.42 (4.8-10.8) K/uL RBC 4.23 L (4.7-6.1) M/uL Hgb 13.5 L (14.0-18.0) g/dL Hct 40.9 L (42-52) % MCV 96.7 (80-100) fL MCH 31.9 (25-34) pg MCHC 33.0 (32-36) g/dL RDW Std Deviation 45.7 (36.4-46.3) fL RDW Coeff of Gladys 12.9 (11.5-14.5) % Plt Count 291 (130-400) K/uL MPV 9.5 (7.4-10.4) fL Immature Gran % (Auto) 1.1 % Neut % (Auto) 77.8 % Lymph % (Auto) 12.1 % [place] % (Auto) 8.4 % Eos % (Auto) 0.5 % Baso % (Auto) 0.1 % Neut # (Auto) 6.55 H (1.4-6.5) K/uL Lymph # (Auto) 1.02 L (1.2-3.4) K/uL [place] # (Auto) 0.71 H (0.11-0.59) K/uL Eos # (Auto) 0.04 (0-0.5) K/uL Baso # (Auto) 0.01 (0-0.2) K/uL Immature Gran # (Auto) 0.09 H (0.00-0.02) K/uL PT 10.2 (9.0-12.0) Seconds INR 1.0 (0.9-1.1) APTT 27.6 (21.0-31.0) Seconds PTT Ratio 1.0 Sodium 143 (136-145) mmol/L Potassium 3.9 (3.5-5.1) mmol/L Chloride 107 (98-107) mmol/L Carbon Dioxide 27 (21-32) mmol/L Anion Gap 9.0 (3-11) BUN 27 H (7-18) mg/dl Creatinine 1.49 H (0.6-1.4) mg/dl Est Cr Clr Drug Dosing Not Reportable Est GFR ( Amer) 52.5 ml/min Est GFR (Non-Af Amer) 45.3 ml/min BUN/Creatinine Ratio 18.2 (10-20) Glucose 84 (70-99) mg/dl Calcium 9.4 (8.5-10.1) mg/dl Magnesium 2.6 H (1.8-2.4) mg/dl Total Bilirubin 0.5 (0.2-1) mg/dl AST 37 (15-37) U/L ALT 45 (12-78) Alkaline Phosphatase 128 H (45-117) U/L Total Creatine Kinase 120 (39-308) U/L Troponin I < 0.015 (0-0.045) ng/ml Total Protein 6.9 (6.4-8.2) gm/dl Albumin 2.8 L (3.4-5.0) gm/dl Globulin 4.1 H (2.5-4.0) gm/dl Albumin/Globulin Ratio 0.7 L (0.9-2) TSH 1.020 (0.300-4.500) uIu/ml Urine Color Urine Appearance (Clear) Urine pH (4.5-7.5) Ur Specific [place] (1.000-1.030) Urine Protein (Negative) Urine Glucose (UA) (Negative) Urine Ketones (Negative) Urine Blood (Negative) Urine Nitrite (Negative) Urine Bilirubin (Negative) Urine Urobilinogen (Negative) Ur Leukocyte Esterase (Negative) Urine WBC (Auto) (0-5) /hpf Urine RBC (Auto) (0-4) /hpf U Hyaline Cast (Auto) (0-5) /lpf U Epithel Cells (Auto) (0-5) /lpf Urine Bacteria (Auto) (Negative) 01/31/21 Range/Units 14:25 WBC (4.8-10.8) K/uL RBC (4.7-6.1) M/uL Hgb (14.0-18.0) g/dL Hct (42-52) % MCV (80-100) fL MCH (25-34) pg MCHC (32-36) g/dL RDW Std Deviation (36.4-46.3) fL RDW Coeff of Gladys (11.5-14.5) % Plt Count (130-400) K/uL MPV (7.4-10.4) fL Immature Gran % (Auto) % Neut % (Auto) % Lymph % (Auto) % [place] % (Auto) % Eos % (Auto) % Baso % (Auto) % Neut # (Auto) (1.4-6.5) K/uL Lymph # (Auto) (1.2-3.4) K/uL [place] # (Auto) (0.11-0.59) K/uL Eos # (Auto) (0-0.5) K/uL Baso # (Auto) (0-0.2) K/uL Immature Gran # (Auto) (0.00-0.02) K/uL PT (9.0-12.0) Seconds INR (0.9-1.1) APTT (21.0-31.0) Seconds PTT Ratio Sodium (136-145) mmol/L Potassium (3.5-5.1) mmol/L Chloride (98-107) mmol/L Carbon Dioxide (21-32) mmol/L Anion Gap (3-11) BUN (7-18) mg/dl Creatinine (0.6-1.4) mg/dl Est Cr Clr Drug Dosing Est GFR ( Amer) ml/min Est GFR (Non-Af Amer) ml/min BUN/Creatinine Ratio (10-20) Glucose (70-99) mg/dl Calcium (8.5-10.1) mg/dl Magnesium (1.8-2.4) mg/dl Total Bilirubin (0.2-1) mg/dl AST (15-37) U/L ALT (12-78) Alkaline Phosphatase (45-117) U/L Total Creatine Kinase (39-308) U/L Troponin I (0-0.045) ng/ml Total Protein (6.4-8.2) gm/dl Albumin (3.4-5.0) gm/dl Globulin (2.5-4.0) gm/dl Albumin/Globulin Ratio (0.9-2) TSH (0.300-4.500) uIu/ml Urine Color Yellow Urine Appearance Cloudy A (Clear) Urine pH 6.5 (4.5-7.5) Ur Specific [place] 1.014 (1.000-1.030) Urine Protein 1+ H (Negative) Urine Glucose (UA) Negative (Negative) Urine Ketones Negative (Negative) Urine Blood 3+ H (Negative) Urine Nitrite Negative (Negative) Urine Bilirubin Negative (Negative) Urine Urobilinogen Negative (Negative) Ur Leukocyte Esterase 3+ H (Negative) Urine WBC (Auto) >30 H (0-5) /hpf Urine RBC (Auto) >30 H (0-4) /hpf U Hyaline Cast (Auto) 0 (0-5) /lpf U Epithel Cells (Auto) 0-5 (0-5) /lpf Urine Bacteria (Auto) Negative (Negative) Administered Medications Discontinued Medications Diphenhydramine HCl (Diphenhydramine 50 Mg/Ml Vial) 25 mg IV NOW STA Stop: 01/31/21 17:49 Last Admin: 01/31/21 17:53 Dose: 25 mg Documented by: [id number] Haloperidol Lactate (Haloperidol Lactate 5 Mg/Ml 1 Ml Vial) 5 mg IM NOW STA Stop: 01/31/21 14:38 Last Admin: 01/31/21 14:47 Dose: 5 mg Documented by: [id number] Haloperidol Lactate (Haloperidol Lactate 5 Mg/Ml 1 Ml Vial) 5 mg IM NOW STA Stop: 01/31/21 17:49 Last Admin: 01/31/21 17:53 Dose: 5 mg Documented by: [id number] Sodium Chloride (Nss) 500 mls @ 999 mls/hr IV .Q31M BHARTI Stop: 01/31/21 13:15 Last Infusion: 01/31/21 14:00 Dose: 0 mls/hr Documented by: [id number] Admin: 01/31/21 13:23 Dose: 999 mls/hr Documented by: [id number] Ceftriaxone Sodium (Rocephin) 1,000 mg in 50 mls @ 100 mls/hr IV NOW STA Stop: 01/31/21 15:06 Last Infusion: 01/31/21 15:25 Dose: 0 mls/hr Documented by: [id number] Admin: 01/31/21 14:46 Dose: 100 mls/hr Documented by: [id number] Imaging Data Radiologist's Impression: Abdomen/Pelvis CT 01/31/21 12:[address] WITHOUT CONTRAST CT DOSE: 1672.06 mGy.cm HISTORY: Acute right-sided flank pain right flank pain TECHNIQUE: Multiaxial CT images of the abdomen and pelvis were performed without contrast. A dose lowering technique was utilized adhering to the principles of ALARA. COMPARISON STUDY: CT abdomen pelvis 08/28/2018 FINDINGS: Coronary artery calcifications. Clear lung bases. No pneumatosis or pneumoperitoneum. The unenhanced spleen is upper limits of normal in size. The pancreas, adrenal glands, gallbladder and liver appear unremarkable. There is moderate right and severe left hydroureteronephrosis with perinephric and periureteral stranding. There is soft tissue thickening with focal narrowing involving the proximal aspect of the left ureter on image 231 series 7. Nonobstructing 6 linear calculus of the inferior pole left kidney. No obstructing ureteral calculi are identified. Urinary bladder wall thickening with perivesicular stranding. 6.3 cm diverticulum is again noted along the right posterolateral aspect of urinary bladder containing a linear 7 mm calculus. Prostamegaly with brachytherapy seeds. Atherosclerosis of the aorta. No adenopathy. Tiny hiatal hernia. Mild nonspecific rectal wall thickening with partial distention. Colonic diverticulosis. Normal appendix. Unremarkable soft tissues. Degenerative changes of the spine, pelvis and hips. IMPRESSION: 1. Prostamegaly with findings of chronic bladder outlet obstruction. Correlation should be made with urinalysis to exclude cystitis. 2. Severe left with moderate right hydroureteronephrosis. Findings may be secondary to the aforementioned bladder outlet obstruction, however there is soft tissue thickening of the proximal left ureter with focal transition point suspicious for a urothelial lesion. Urology consultation recommended. 3. Nonobstructing left nephrolithiasis with urinary bladder calculi. 4. Colonic diverticulosis. 5. Mild rectal wall thickening is likely secondary to partial distention. 6. Additional findings as above. ACT 112: Negative or not required by law. The above report was generated using voice recognition software. It may contain grammatical, syntax or spelling errors. Electronically signed by: Arsh Bernal M.D. 01/31/2021 1:46 PM Chest X-Ray 01/31/21 12:41 XR chest 1V portable HISTORY: 75 years-old Male weakness acute weakness COMPARISON: CT abdomen and pelvis of same day, chest radiograph 06/15/2015 TECHNIQUE: Portable AP view of the chest FINDINGS: Cardiac silhouette is mildly enlarged. Prior median sternotomy with findings suggestive of post CABG. There is no pneumothorax, pleural effusion, airspace consolidation or overt edema. Degenerative changes of the shoulders and spine. IMPRESSION: No acute process. ACT 112: Negative or not required by law. The above report was generated using voice recognition software. It may contain grammatical, syntax or spelling errors. Electronically signed by: Arsh Bernal M.D. 01/31/2021 1:[address] 01/31/21 12:41 CT head/brain wo con CLINICAL HISTORY: 75 years-old Male with AMS. Acutely altered mental status TECHNIQUE: Multiple axial CT images of the head were obtained without contrast. A dose lowering technique was utilized adhering to the principles of ALARA. COMPARISON: None. FINDINGS: No acute intracranial hemorrhage, midline shift, intracranial mass, hydrocephalus, territorial ischemia or abnormal extra-axial collection. Motion degraded exam. The study was then repeated. Calcifications of the falx cerebri. Age-related involutional changes. White matter hypodensities suggestive of chronic microvascular ischemic disease. The calvarium is intact. Prior bilateral lens repair. The paranasal sinuses, mastoid air cells, and middle ear cavities are clear. IMPRESSION: Motion degraded exam. No acute intracranial abnormality identified. ACT 112: Negative or not required by law. The above report was generated using voice recognition software. It may contain grammatical, syntax or spelling errors. Electronically signed by: Arsh Bernal M.D. 01/31/2021 1:33 PM Discharge Plan Visit Data Chief Complaint: Altered Mental Status ED Provider: David Morejon Discharge Problem: Acute urinary retention, Hydronephrosis, Urinary tract infection, Acute alteration in mental status, Dementia, Agitation Patient Disposition: Being Evaluated by Hospitalist Discharge Instructions Interventions: ED Discharge Assessment Last Done: 01/31/21 19:12 Forms Stand Alone Forms: [facility] Prescriptions Prescriptions: No Action metoprolol succinate [Toprol XL] 25 mg tablet extended release 24 hr 12.5 mg PO QAM RF: 0 lisinopril 20 mg Tablet 20 mg PO BID RF: 0 aspirin 81 mg Tablet,Chewable 81 mg PO QAM RF: 0 nitroglycerin 0.4 mg Tablet, Sublingual 0.4 mg sublingual DIRECTED PRN (Reason: Chest Pain) RF: 0 atorvastatin 80 mg Tablet 80 mg PO QAM RF: 0 amlodipine 2.5 mg Tablet 2.5 mg PO QAM RF: 0 isosorbide mononitrate 30 mg Tablet Extended Release 24 Hr 30 mg PO QAM RF: 0 multivitamin Tablet 1 tab PO QAM RF: 0 Referrals Referrals: Josseline Veras MD [Primary Care Provider] -
[2021-01-31 13:36] LABS: Alanine Aminotransferase 45 (12-78); Albumin Level 2.8 gm/dl (3.4-5.0); Aspartate Aminotransferase 37 U/L (15-37); BUN Creatinine Ratio 18.2 (10-20); Blood Urea Nitrogen 27 mg/dl (7-18); Calcium 9.4 mg/dl (8.5-10.1); Carbon Dioxide 27 mmol/L (21-32); Chloride 107 mmol/L (98-107); Est GFR (African American) 52.5 ml/min; Est GFR (Non-African American) 45.3 ml/min; Glucose 84 mg/dl (70-99); Magnesium 2.6 mg/dl (1.8-2.4); Potassium 3.9 mmol/L (3.5-5.1); Sodium 143 mmol/L (136-145)
[2021-01-31 13:47] LABS: Albumin Globulin Ratio 0.7 (0.9-2); Alkaline Phosphatase 128 U/L (45-117); Bilirubin,Total 0.5 mg/dl (0.2-1); Creatine Kinase 120 U/L (39-308); Globulin 4.1 gm/dl (2.5-4.0); Total Protein 6.9 gm/dl (6.4-8.2); Troponin I < 0.015 ng/ml (0-0.045)
--- NOTE | 2021-01-31 13:47 | CT Scan Report ---
ABDOMEN AND PELVIS CT WITHOUT CONTRAST CT DOSE: 1672.06 mGy.cm HISTORY: Acute right-sided flank pain right flank pain TECHNIQUE: Multiaxial CT images of the abdomen and pelvis were performed without contrast. A dose lo wering technique was utilized adhering to the principles of ALARA. COMPARISON STUDY: CT abdomen pelvis 08/28/2018 FINDINGS: Coronary artery calcifications. Clear lung bases. No pneumatosis or pneumoperitoneum. The unenhanced spleen is upper limits of normal in size. The pancreas, adrenal glands, gallbladder and liver appear unremarkable. There is moderate right and severe left hydroureteronephrosis with perinephric and sahra ureteral stranding. There is soft tissue thickening with focal narrowing involving the proximal aspec t of the left ureter on image 231 series 7. Nonobstructing 6 linear calculus of the inferior pole lef t kidney. No obstructing ureteral calculi are identified. Urinary bladder wall thickening with perive sicular stranding. 6.3 cm diverticulum is again noted along the right posterolateral aspect of urinar y bladder containing a linear 7 mm calculus. Prostamegaly with brachytherapy seeds. Atherosclerosis o f the aorta. No adenopathy. Tiny hiatal hernia. Mild nonspecific rectal wall thickening with partial distention. Colonic divertic ulosis. Normal appendix. Unremarkable soft tissues. Degenerative changes of the spine, pelvis and hip s. IMPRESSION: 1. Prostamegaly with findings of chronic bladder outlet obstruction. Correlation should be made with urinalysis to exclude cystitis. 2. Severe left with moderate right hydroureteronephrosis. Findings may be secondary to the aforementi oned bladder outlet obstruction, however there is soft tissue thickening of the proximal left ureter with focal transition point suspicious for a urothelial lesion. Urology consultation recommended. 3. Nonobstructing left nephrolithiasis with urinary bladder calculi. 4. Colonic diverticulosis. 5. Mild rectal wall thickening is likely secondary to partial distention. 6. Additional findings as above. ACT 112: Negative or not required by law. The above report was generated using voice recognition software. It may contain grammatical, syntax o r spelling errors. Electronically signed by: Arsh Bernal M.D. 01/31/2021 1:46 PM
--- NOTE | 2021-01-31 14:01 | XRay Report ---
XR chest 1V portable HISTORY: 75 years-old Male weakness acute weakness COMPARISON: CT abdomen and pelvis of same day, chest radiograph 06/15/2015 TECHNIQUE: Portable AP view of the chest FINDINGS: Cardiac silhouette is mildly enlarged. Prior median sternotomy with findings suggestive of post CABG. There is no pneumothorax, pleural effusion, airspace consolidation or overt edema. Degenerative byrd ges of the shoulders and spine. IMPRESSION: No acute process. ACT 112: Negative or not required by law. The above report was generated using voice recognition software. It may contain grammatical, syntax o r spelling errors. Electronically signed by: Arsh Bernal M.D. 01/31/2021 1:59 PM
[2021-01-31] MEDS ORDERED: cefTRIAXone SODIUM 1,000 MG/50 ML BAG IV STA (14:37)
[2021-01-31] MEDS ORDERED: HALOPERIDOL LACTATE 5 MG/ML 1 ML VIAL IM STA ×2 (14:37→17:48)
[2021-01-31 14:47] LABS: Appearance Urine Cloudy (Clear); Bacteria Urine Automated Negative (Negative); Bilirubin Urine Negative (Negative); Blood Urine 3+ (Negative); Cast Urine Automated 0 /lpf (0-5); Color Urine Yellow; Epithelial Cell Urine Auto 0-5 /lpf (0-5); Glucose Urine UA Negative (Negative); Ketones Urine Negative (Negative); Leukocyte Esterase Urine 3+ (Negative); Nitrite Urine Negative (Negative); Protein Urine 1+ (Negative); RBC Urine Automated >30 /hpf (0-4); Specific Gravity Urine 1.014 (1.000-1.030); Urobilinogen Urine Negative (Negative); WBC Urine Automated >30 /hpf (0-5); pH Urine 6.5 (4.5-7.5)
--- NOTE | 2021-01-31 15:40 | History & Physical Report ---
Date of Service January 31, 2021 Assessment & Plan (1) Altered mental status: (2) Dementia: Plan: Patient is 75-year-old male with PMH dementia, HTN, dyslipidemia, CAD s/p stents, CABG, JANUARY, h/o prostate cancer s/p seed implant, CKD III presented to ER for altered mental status with increased confusion noted today. At baseline is oriented to person only and often has agitation and aggressive tendencies. In ER patient afebrile, patient hypertensive at 186/98, other vitals stable. In ER patient was pulling at Wright catheter after placement and was given Haldol 5 mg IM, and restraints were used Currently patient able to be redirected and is resting in bed Likely metabolic encephalopathy with dementia One-to-one observation Try to avoid benzo sedatives Treat as below Monitor for delirium Frequent reorientation (3) Hydronephrosis: Plan: Bladder outlet obstruction Possible UTI Reported difficulty with urination past several months CT ABD/PELVIS: 1. Prostamegaly with findings of chronic bladder outlet obstruction. Correlation should be made with urinalysis to exclude cystitis. 2. Severe left with moderate right hydroureteronephrosis. Findings may be secondary to the aforementioned bladder outlet obstruction, however there is soft tissue thickening of the proximal left ureter with focal transition point suspicious for a urothelial lesion. Urology consultation recommended. 3. Nonobstructing left nephrolithiasis with urinary bladder calculi. 4. Colonic diverticulosis. 5. Mild rectal wall thickening is likely secondary to partial distention. UA: 3+ leuk esterase,> 30 WBC,> RBC, no bacteria. No leukocytosis. In ER given Rocephin, 500 mL NSS Wright was placed in ER Continue wright cath Continue Rocephin Urine culture pending Urology consult (4) CAD (coronary artery disease): Plan: S/P Stents, CABG Continue aspirin, atorvastatin, isosorbide, metoprolol succinate (5) Hypertension: Plan: Continue amlodipine, lisinopril, metoprolol succinate (6) CKD (chronic kidney disease), stage III: Plan: Cr: 1.49. Cr Was 1.5 and 2020 Monitor renal functions, avoid nephrotoxic agents and possible (7) Adenocarcinoma of prostate: Plan: S/P seed implant (8) JANUARY (obstructive sleep apnea): Plan: Previously used BiPAP and CPAP. No longer tolerant DVT Prophylaxis Heparin SQ Full Code as per discussion with pt daughter, Olga Follows with Dr Veras for routine care Pt was seen and care coordinated with Dr Fish. See addendum History of Present Illness Chief Complaint: AMS Primary Care Provider: Josseline Veras MD Patient is 75-year-old male with PMH dementia, HTN, dyslipidemia, CAD s/p stents, CABG, JANUARY, h/o prostate cancer s/p seed implant, CKD III presented to ER for altered mental status. History obtained from patient's daughter secondary to patient's current status. Patient lives with other daughter who cares for him and they have caregivers assisting. Reports patient baseline is oriented to person only and often has agitation and aggressive tendencies. Reports daughter left house today and upon return noted patient was lethargic and did not seem to be responding/talking. Did not notice any noted difficulty with breathing. Denies patient complaining of any chest pain recently denies any known fever chills, vomiting, diarrhea. Reports over the past 2 months patient has been having difficulty urinating. In ER patient afebrile, patient hypertensive at 186/98, other vitals stable. No leukocytosis. Patient had complained of abdominal discomfort to ER staff. Wright catheter was placed with return of 1 L urine output. Since Wright placement patient no longer complaining of abdominal discomfort however is agitated with Wright and has been pulling at catheter. CT head no acute changes. Chest x-ray no acute infiltrate. CT abdomen pelvis: 1. Prostamegaly with findings of chronic bladder outlet obstruction. Severe left with moderate right hydroureteronephrosis. Findings may be secondary to the aforementioned bladder outlet obstruction, however there is soft tissue thickening of the proximal left ureter with focal transition point suspicious for a urothelial lesion. Nonobstructing left nephrolithiasis with urinary bladder calculi. Allergies Allergy/AdvReac Type Severity Reaction Status Date / Time No Known Allergies Allergy Unverified 01/31/21 15:40 Home Medications Medication Instructions Recorded Confirmed Type amlodipine 2.5 mg tablet 2.5 mg PO QAM 08/28/18 01/31/21 History aspirin 81 mg chewable tablet 81 mg PO QAM 08/28/18 01/31/21 History atorvastatin 80 mg tablet 80 mg PO QAM 08/28/18 01/31/21 History isosorbide mononitrate 30 mg 30 mg PO QAM 08/28/18 01/31/21 History tablet,extended release 24 hr lisinopril 20 mg tablet 20 mg PO BID 08/28/18 01/31/21 History nitroglycerin 0.4 mg sublingual 0.4 mg SUBLINGUAL DIRECTED PRN 08/28/18 01/31/21 History tablet metoprolol succinate 25 mg 12.5 mg PO QAM tab 10/02/18 01/31/21 History tablet,extended release 24 hr (Toprol XL) multivitamin 1 tab PO QAM 01/31/21 01/31/21 History Past Med/Surg History Medical History (Updated 01/31/21 @ 15:47 by Melany Cruz PA-C) Adenocarcinoma of prostate (12/28/12) "Rising PSA, pretreatment PSA 5.05 Status post ultrasound-guided biopsies number the 2012 Adenocarcinoma with Liane 3+3 Lupron injection 03/27/2013 to downsize the prostate Status post prostate seed implant 03/04/2014 as monotherapy. He received 115 Gy, 86 seeds were placed" CAD (coronary artery disease) "s/p CABG 1998" CKD (chronic kidney disease), stage III Dementia History of kidney stones Hyperlipidemia Hypertension JANUARY (obstructive sleep apnea) Surgical History H/O colonoscopy with polypectomy H/O prostate biopsy History of lumbar surgery S/P CABG (coronary artery bypass graft) "x2 in 1998" S/P cardiac catheterization "in setting of NSTEMI 06/2014- POBA to OM" Family History (Updated 01/31/21 @ 15:46 by Melany Cruz PA-C) Father Heart disease Brother Heart disease Hypertension Mother Heart disease Social History (Updated 01/31/21 @ 15:46 by Melany Cruz PA-C) Smoking Status: Former smoker Hx Alcohol Use: No Hx Substance Use: No Feels Safe at Home: Yes Review of Systems Review of Systems: Unobtainable due to cognitive status Physical Exam Physical Exam: General: Initially fidgeting in bed, then calms and resting in bed, no other distress noted, WDWN elderly male Head: normocephalic, atraumatic Eyes: PERRL, EOM's intact, conjunctiva non-injected, anicteric ENT: normal inspection external ears, nose, mucous membranes moist Neck: supple, trachea midline Lungs: clear, no respiratory distress, no wheezing/rhonchi/rales CV: RRR, no murmur, no pretibial edema Abd: normal BS, soft, non-tender Ext: no cyanosis, no calf tenderness Neuro: Alert, oriented to person. Pt initially restless then calms and resting bed and cooperative with exam, no focal deficits noted Skin: warm, dry Results & Data Results & Data ([facility]) Vital Signs (Past 12 Hours) Vital Signs Temp Pulse Pulse Resp BP BP Pulse Ox 01/31/21 14:55 94 H 18 186/98 H 01/31/21 12:23 36.8 C 62 18 161/111 H 100 Laboratory Results Short CBC 01/31/21 Range/Units 12:55 WBC 8.42 (4.8-10.8) K/uL Hgb 13.5 L (14.0-18.0) g/dL Hct 40.9 L (42-52) % Plt Count 291 (130-400) K/uL BMP 01/31/21 12:55 Sodium 143 Potassium 3.9 Chloride 107 Carbon Dioxide 27 BUN 27 H Creatinine 1.49 H Glucose 84 Calcium 9.4 Cardiac Enzymes 01/31/21 Range/Units 12:55 Total Creatine Kinase 120 (39-308) U/L Troponin I < 0.015 (0-0.045) ng/ml Liver Function 01/31/21 Range/Units 12:55 Total Bilirubin 0.5 (0.2-1) mg/dl AST 37 (15-37) U/L ALT 45 (12-78) Alkaline Phosphatase 128 H (45-117) U/L Albumin 2.8 L (3.4-5.0) gm/dl Urine 01/31/21 Range/Units 14:25 Urine Color Yellow Urine Appearance Cloudy A (Clear) Urine pH 6.5 (4.5-7.5) Ur Specific [place] 1.014 (1.000-1.030) Urine Protein 1+ H (Negative) Urine Glucose (UA) Negative (Negative) Diagnostic Findings Abdomen/Pelvis CT 01/31/21 12:[address] WITHOUT CONTRAST CT DOSE: 1672.06 mGy.cm HISTORY: Acute right-sided flank pain right flank pain TECHNIQUE: Multiaxial CT images of the abdomen and pelvis were performed without contrast. A dose lowering technique was utilized adhering to the principles of ALARA. COMPARISON STUDY: CT abdomen pelvis 08/28/2018 FINDINGS: Coronary artery calcifications. Clear lung bases. No pneumatosis or pneu moperitoneum. The unenhanced spleen is upper limits of normal in size. The pancreas, adrenal glands, gallbladder and liver appear unremarkable. There is moderate right and severe left hydroureteronephrosis with perinephric and periureteral stranding. There is soft tissue thickening with focal narrowing involving the proximal aspect of the left ureter on image 231 series 7. Nonobstructing 6 linear calculus of the inferior pole left kidney. No obstructing ureteral calculi are identified. Urinary bladder wall thickening with perivesicular stranding. 6.3 cm diverticulum is again noted along the right posterolateral aspect of urinary bladder containing a linear 7 mm calculus. Prostamegaly with brachytherapy seeds. Atherosclerosis of the aorta. No adenopathy. Tiny hiatal hernia. Mild nonspecific rectal wall thickening with partial distention. Colonic diverticulosis. Normal appendix. Unremarkable soft tissues. Degenerative changes of the spine, pelvis and hips. IMPRESSION: 1. Prostamegaly with findings of chronic bladder outlet obstruction. Correlation should be made with urinalysis to exclude cystitis. 2. Severe left with moderate right hydroureteronephrosis. Findings may be sec ondary to the aforementioned bladder outlet obstruction, however there is soft tissue thickening of the proximal left ureter with focal transition point suspicious for a urothelial lesion. Urology consultation recommended. 3. Nonobstructing left nephrolithiasis with urinary bladder calculi. 4. Colonic diverticulosis. 5. Mild rectal wall thickening is likely secondary to partial distention. 6. Additional findings as above. ACT 112: Negative or not required by law. The above report was generated using voice recognition software. It may contain grammatical, syntax or spelling errors. Electronically signed by: Arsh Bernal M.D. 01/31/2021 1:46 PM Chest X-Ray 01/31/21 12:41 XR chest 1V portable HISTORY: 75 years-old Male weakness acute weakness COMPARISON: CT abdomen and pelvis of same day, chest radiograph 06/15/2015 TECHNIQUE: Portable AP view of the chest FINDINGS: Cardiac silhouette is mildly enlarged. Prior median sternotomy with findings suggestive of post CABG. There is no pneumothorax, pleural effusion, airspace consolidation or overt edema. Degenerative changes of the shoulders and spine. IMPRESSION: No acute process. ACT 112: Negative or not required by law. The above report was generated using voice recognition software. It may contain grammatical, syntax or spelling errors. Electronically signed by: Arsh Bernal M.D. 01/31/2021 1:[address] 01/31/21 12:41 CT head/brain wo con CLINICAL HISTORY: 75 years-old Male with AMS. Acutely altered mental status TECHNIQUE: Multiple axial CT images of the head were obtained without contrast. A dose lowering technique was utilized adhering to the principles of ALARA. COMPARISON: None. FINDINGS: No acute intracranial hemorrhage, midline shift, intracranial mass, hydrocephalus, territorial ischemia or abnormal extra-axial collection. Motion degraded exam. The study was then repeated. Calcifications of the falx cerebri. Age-related involutional changes. White matter hypodensities suggestive of chronic microvascular ischemic disease. The calvarium is intact. Prior bilateral lens repair. The paranasal sinuses, mastoid air cells, and middle ear cavities are clear. IMPRESSION: Motion degraded exam. No acute intracranial abnormality identified. ACT 112: Negative or not required by law. The above report was generated using voice recognition software. It may contain grammatical, syntax or spelling errors. Electronically signed by: Arsh Bernal M.D. 01/31/2021 1:33 PM Supervising Physician Co-Signing Physician Notes Pt is a 75 y/o M with hx of CAD s/p CABG and stent, HLD, HTN, prostate Ca s/p seed implant and Lupron, CKD III, JANUARY on BiPAP, dementia admitted for AMS and UTI with hydronephrosis. Exam: Appeared a little lethargic (received Haldol) Cardiac: normal S1/S2, no murmur Lungs: CTA, no wheezing Abd: wright in place, ND, soft, NT MSK: no edema Psych: difficult to assess due to being lethargic, per daughter pt is AAOx1 at baseline (to person only) A/P: Encephalopathy 2/2 UTI: -will continue the pt on ceftriaxone - UCx sent B/L hydronephrosis (L>R): -s/p urinary catheter placement -urology consult and trend BMP Agree with A/P by Melany Cruz PA-C
[2021-01-31] MEDS ORDERED: diphenhydrAMINE 50 MG/ML VIAL IV STA (17:48)
[2021-01-31] MEDS ORDERED: LABETALOL HCL IV 5 MG/ML 20ML IV STA (21:22)
[2021-01-31] MEDS ORDERED: HALOPERIDOL LACTATE 5 MG/ML 1 ML VIAL ONE (21:26)
[2021-01-31] MEDS ORDERED: LABETALOL HCL IV 5 MG/ML 20ML IV ONE (21:26)
[2021-01-31] MEDS ORDERED: ACETAMINOPHEN 325 MG TAB PO PRN (22:19)
[2021-01-31] MEDS ORDERED: POLYETHYLENE (MIRALAX) 17 GM PACK PO PRN (22:19)
[2021-01-31] MEDS ORDERED: NITROGLYCERIN SL 0.4 MG/TAB TAB SL PRN (22:19)
[2021-01-31] MEDS ORDERED: lisinopril 20 MG TAB PO SCH (22:19)
[2021-01-31] MEDS: HALOPERIDOL LACTATE 5 MG/ML 1 ML VIAL IM PRN (23:44)
[2021-01-31] MEDS: HEPARIN SOD 5,000 UNIT/0.5 ML VIAL SQ SCH (23:44)
[2021-02-01] MEDS ORDERED: OLANZapine 10 MG/2.1 ML SDV IM STA
[2021-02-01] MEDS ORDERED: ACETAMINOPHEN 1,000 MG/100 ML VIAL IV STA (00:04)
[2021-02-01] MEDS ORDERED: OLANZapine 10 MG/2.1 ML SDV IM ONE (00:04)
[2021-02-01] MEDS ORDERED: SODIUM CHLORIDE 0.45 % 1,000 ML IV ONE (00:05)
[2021-02-01] MEDS: amLODIPine BESYLATE 5 MG TAB PO SCH ×2 (00:10→12:19)
[2021-02-01] MEDS: ISOSORBIDE MONO EXTENDED REL 30 MG TABCR PO SCH ×2 (00:10→12:21)
[2021-02-01] MEDS: METOPROLOL SUCC 25MG EXT REL TAB PO SCH ×2 (00:11→12:20)
[2021-02-01] MEDS: HALOPERIDOL LACTATE 5 MG/ML 1 ML VIAL IM PRN (06:09)
--- NOTE | 2021-02-01 08:33 | Urology Consultation ---
Date of Consultation February 01, 2021 Assessment & Plan (1) Acute urinary retention: (2) Hydronephrosis: (3) Urinary tract infection: (4) Altered mental status: 75yo M with a hx of prostate cancer s/p brachytherapy admitted with AMS, suspected UTI, acute urinary retention, b/l hydronephrosis. - Plan of care reviewed with Dr. Vyas, on-call urologist. - Pt afebrile, non-toxic appearing. - Labs reviewed - Wbc normal, Creatinine down to 1.31 (1.49 on admission) - Will continue to trend. - Urine culture pending, follow cultures - on IV Ceftriaxone. - CTAP reviewed- Prostatomegaly with chronic bladder outlet obstruction; Severe left with moderate right hydroureteronephrosis; Soft tissue thickening of the proximal left ureter with focal transition point suspicious for a urothelial lesion. - No acute intervention warranted at this time. - Bilateral hydronephrosis likely multifactorial including chronic bladder outlet obstruction and suspected UTI. - Wright catheter placed on admission with return of 1L of urine - Maintain Wright catheter, recommend keeping for 7-10 days for maximum drainage and bladder rest. - Possible abnormality of the left ureter noted on CT- Pt will need outpatient follow-up with upper tract imaging and discussion of possible ureteroscopy for f urther evaluation. - Consider addition of Flomax if no contraindications. - Will obtain updated PSA level, order placed. - Recommend renal ultrasound imaging in 1-2 days to assess b/l hydronephrosis. - Continue supportive care, antibiotic therapy, and close monitoring. - Will continue to follow. - Of note, plan of care reviewed with patient's daughter Hailey at bedside. She is agreeable to plan and all questions were answered. History of Present Illness Reason for Consultation: Hydronephrosis Requesting Physician: Melany Cruz PA-C Attending Physician: Geronimo Frazier DO History of Present Illness 75yo M with a PMHx including dementia, HTN, dyslipidemia, CAD s/p stents, CABG, JANUARY, h/o prostate cancer s/p seed implant, CKD II admitted with altered mental status and bilateral hydronephrosis. Patient presented to the ED on 01/31 with altered mental status and increased confusion per his daughter's report. On presentation to ED, he was afebrile, hypertensive at 186/98, other vitals stable. White count 8.42, Hemoglobin 13.5, and Creatinine 1.49. Urinalysis with 3+blood, 3+leukocytes, >30 WBC, >30 RBC, negative bacteria, negative nitrite. Urine culture sent and pending, started on IV Ceftriaxone. In ED, he was complaining of abdominal discomfort to ER staff. Wright catheter was placed with return of 1 L urine output. After wright placement, patient was no longer complaining of abdominal discomfort, however was agitated with Wright and had been pulling at catheter. He was given Haldol 5 mg IM, and restraints were used. Per chart review, at baseline he is oriented to person only and often has agitation and aggressive tendencies. His daughter also reported difficulty with urination over the past several months. Urology consulted for b/l hydronephrosis. CT ABD/PELVIS: 1. Prostatomegaly with findings of chronic bladder outlet obstruction. Correlation should be made with urinalysis to exclude cystitis. 2. Severe left with moderate right hydroureteronephrosis. Findings may be secondary to the aforementioned bladder outlet obstruction, however there is soft tissue thickening of the proximal left ureter with focal transition point suspicious for a urothelial lesion. Urology consultation recommended. 3. Nonobstructing left nephrolithiasis with urinary bladder calculi. 4. Colonic diverticulosis. 5. Mild rectal wall thickening is likely secondary to partial distention. Patient with hx of prostate cancer, treated with neoadjuvant hormone therapy and brachytherapy February 2014. Followed with Dr. Tan, last office visit Feb 2018. Last PSA 09/2018- 0.027 Pt examined at bedside in the ED. Patient's daughter at bedside. Pt asleep on arrival. Appears comfortable. Aroused easily to name. Answered a few yes/no questions. Denied any pain or discomfort at present. Denied hematuria and dysuria. Wright intact, draining cloudy yellow urine with sediment. Pt offered no additional complaints at time of exam. Patient lives with daughter. Per her report, he has had difficulty with urination over the past several months. Pt/daughter offered no additional concerns at time of exam. Allergies Allergy/AdvReac Type Severity Reaction Status Date / Time No Known Allergies Allergy Unverified 01/31/21 15:40 Home Medications Medication Instructions Recorded Confirmed Type amlodipine 2.5 mg tablet 2.5 mg PO QAM 08/28/18 01/31/21 History aspirin 81 mg chewable tablet 81 mg PO QAM 08/28/18 01/31/21 History atorvastatin 80 mg tablet 80 mg PO QAM 08/28/18 01/31/21 History isosorbide mononitrate 30 mg 30 mg PO QAM 08/28/18 01/31/21 History tablet,extended release 24 hr lisinopril 20 mg tablet 20 mg PO BID 08/28/18 01/31/21 History nitroglycerin 0.4 mg sublingual 0.4 mg SUBLINGUAL DIRECTED PRN 08/28/18 01/31/21 History tablet metoprolol succinate 25 mg 12.5 mg PO QAM tab 10/02/18 01/31/21 History tablet,extended release 24 hr (Toprol XL) multivitamin 1 tab PO QAM 01/31/21 01/31/21 History Patient History Medical History Adenocarcinoma of prostate (12/28/12) "Rising PSA, pretreatment PSA 5.05 Status post ultrasound-guided biopsies number the 2012 Adenocarcinoma with Liane 3+3 Lupron injection 03/27/2013 to downsize the prostate Status post prostate seed implant 03/04/2014 as monotherapy. He received 115 Gy, 86 seeds were placed" CAD (coronary artery disease) "s/p CABG 1998" CKD (chronic kidney disease), stage III Dementia History of kidney stones Hyperlipidemia Hypertension JANUARY (obstructive sleep apnea) Surgical History H/O colonoscopy with polypectomy H/O prostate biopsy History of lumbar surgery S/P CABG (coronary artery bypass graft) "x2 in 1998" S/P cardiac catheterization "in setting of NSTEMI 06/2014- POBA to OM" Family History Father Heart disease Brother Heart disease Hypertension Mother Heart disease Social History Smoking Status: Never smoker Hx Alcohol Use: No Hx Substance Use: No Communication Ability: Impaired Current Living Situation: Family Feels Safe at Home: Yes Assistive Devices: None Review of Systems Review of Systems: Unobtainable due to cognitive status Physical Exam Constitutional: comfortable; no acute distress Neck: normal visual inspection Respiratory: normal respiratory effort and able to speak in complete sentences; no labored breathing and no audible wheezes Gastrointestinal (Abdomen): Inspection/Auscultation: abdomen normal to inspection; abdomen not distended Musculoskeletal: Head/Neck/Chest: normocephalic Skin: No visible rashes or lesions to exposed skin areas Neurologic: moves all extremities Psychiatric: Orientation: alert, oriented to person and cooperative Genitourinary: Wright catheter intact, draining cloudy yellow urine with sediment Results & Data ([facility]) Vital Signs (Past 12 Hours) Vital Signs Temp Pulse Resp BP BP BP Pulse Ox 02/01/21 08:24 36.3 C L 65 16 147/101 H 98 02/01/21 06:12 55 L 20 98 02/01/21 05:33 52 L 20 99 02/01/21 04:17 50 L 20 100 02/01/21 03:25 84 20 98 02/01/21 00:07 86 16 153/78 H 98 01/31/21 21:40 100 01/31/21 21:30 98 01/31/21 21:28 134/85 98 Pulse Ox 02/01/21 08:24 02/01/21 06:12 02/01/21 05:33 02/01/21 04:17 02/01/21 03:25 98 02/01/21 00:07 01/31/21 21:40 01/31/21 21:30 01/31/21 21:28 PG Care Time/CCT Total # of Minutes Spent Total Time Spent with Patient: Total time spent is greater than 50% in coordination of care (as documented) at patient's floor/unit and/or counseling patient: Coding Level of Care Code 80926 Initial Inpt Care Lvl 2 Diagnoses Acute urinary retention R33.8 Hydronephrosis N13.30 Hydronephrosis type: unspecified Urinary tract infection N39.0; R31.9 Hematuria presence: with hematuria Urinary tract infection type: site unspecified Altered mental status R41.82 (1) Urinary tract infection Hematuria presence: with hematuria Urinary tract infection type: site unspecified Qualified Code(s): N39.0 - Urinary tract infection, site not specified; R31.9 - Hematuria, unspecified (2) Hydronephrosis Hydronephrosis type: unspecified Qualified Code(s): N13.30 - Unspecified hydronephrosis
[2021-02-01 08:34] LABS: Hematocrit (blood only) 43.8 % (42-52); Hemoglobin 14.8 g/dL (14.0-18.0); Mean Corpuscular Hemoglobin 32.5 pg (25-34); Mean Corpuscular Hgb Conc 33.8 g/dL (32-36); Mean Corpuscular Volume 96.1 fL (80-100); Mean Platelet Volume 9.9 fL (7.4-10.4); Platelet Count 261 K/uL (130-400); RDW Coefficient of Variation 12.8 % (11.5-14.5); RDW Standard Deviation 44.6 fL (36.4-46.3); Red Blood Count 4.56 M/uL (4.7-6.1); White Blood Count 9.09 K/uL (4.8-10.8)
[2021-02-01 08:58] LABS: BUN Creatinine Ratio 14.8 (10-20); Calcium 9.2 mg/dl (8.5-10.1); Creatinine Clr Calc Pharmacy 50.3 ml/min; Est GFR (African American) 61.3 ml/min; Est GFR (Non-African American) 52.9 ml/min; Potassium 3.5 mmol/L (3.5-5.1)
--- NOTE | 2021-02-01 11:29 | Hospitalist Progress Note ---
Date of Service February 01, 2021 Assessment & Plan (1) Altered mental status: (2) Dementia: Plan: Patient is 75-year-old male with PMH dementia, HTN, dyslipidemia, CAD s/p stents, CABG, JANUARY, h/o prostate cancer s/p seed implant, CKD III presented to ER for altered mental status with increased confusion noted today. At baseline is oriented to person only and often has agitation and aggressive tendencies. In ER patient afebrile, patient hypertensive at 186/98, other vitals stable. In ER patient was pulling at Wright catheter after placement and was given Haldol 5 mg IM, and restraints were used Currently patient able to be redirected and is resting in bed Likely metabolic encephalopathy with dementia One-to-one observation Try to avoid benzo sedatives Treat as below Monitor for delirium Frequent reorientation (3) Hydronephrosis: Plan: Bladder outlet obstruction Possible UTI Reported difficulty with urination past several months CT ABD/PELVIS: 1. Prostamegaly with findings of chronic bladder outlet obstruction. Correlation should be made with urinalysis to exclude cystitis. 2. Severe left with moderate right hydroureteronephrosis. Findings may be secondary to the aforementioned bladder outlet obstruction, however there is soft tissue thickening of the proximal left ureter with focal transition point suspicious for a urothelial lesion. Urology consultation recommended. 3. Nonobstructing left nephrolithiasis with urinary bladder calculi. 4. Colonic diverticulosis. 5. Mild rectal wall thickening is likely secondary to partial distention. UA: 3+ leuk esterase,> 30 WBC,> RBC, no bacteria. No leukocytosis. In ER given Rocephin, 500 mL NSS Wright was placed in ER Continue wright cath Continue Rocephin Urine culture pending Urology to see today (4) CAD (coronary artery disease): Plan: S/P Stents, CABG Continue aspirin, atorvastatin, isosorbide, metoprolol succinate (5) Hypertension: Plan: Continue amlodipine, lisinopril, metoprolol succinate (6) CKD (chronic kidney disease), stage III: Plan: Monitor renal functions, avoid nephrotoxic agents and possible (7) Adenocarcinoma of prostate: Plan: S/P seed implant (8) JANUARY (obstructive sleep apnea): Plan: Previously used BiPAP and CPAP. No longer tolerant DVT Prophylaxis Heparin SQ Full Code as per discussion with pt daughterOlga Follows with Dr Veras for routine care ROS-No Headache, No Visual Changes, No Nausea, No Vomiting, No Fever, No Chills, No Neck Pain or Stiffness, No Chest Pain, No Palpitations, No SOB, No DANIEL, No Cough, No Sputum, No Wheezing, No Abdominal Pain, No Diarrhea, No Hematemesis, No Hemoptysis, No Unexpected Weight Loss, No Flank pain, No Melena, No Hematochezia, No Frequency, No Urgency, No Burning, No Hematuria, No Rashes, No Diaphoresis. Appetite is Normal Physical Exam Gen-AAO x 2, NAD, Afebrile, demented Head-NCAT, EOMI, PERRLA, Anicteric Sclera, No Posterior Pharyngeal Erythema Neck-Supple, No JVD, No Thyromegaly, No Masses, No LAD, No Bruits Lungs-Clear to Auscultation Bilaterally, No Rales, No Rhonchi, No Wheezing, No Crepitus Chest-No S4, +S1, +S2, No S3, No Murmurs, No Rubs, No Gallops, No Ectopy Abdomen-Soft, Bowel Sounds Present, Non Tender, Non Distended, No Hepatomegaly, No Splenomegaly, No Palpable Masses, No Rebound, No Rigidity, No Guarding Musculoskeletal-Full Range of Motion Bilaterally, No CVAT Extremities-No Cyanosis, No Clubbing, No Edema Nuero-Cranial Nerves II-XII grossly intact, Motor WNL, DTRs WNL, Strength WNL, Non Focal Psych-Normal Mood Admission and Anticipated Discharge Date Admission Date: January 31, 2021 Results & Data Results & Data ([facility]) Vital Signs (Past 12 Hours) Vital Signs Temp Pulse Resp BP BP Pulse Ox Pulse Ox 02/01/21 08:24 36.3 C L 65 16 147/101 H 98 02/01/21 06:12 55 L 20 98 02/01/21 05:33 52 L 20 99 02/01/21 04:17 50 L 20 100 02/01/21 03:25 84 20 98 98 02/01/21 00:07 86 16 153/78 H 98 Laboratory Results Labs reviewed (1) Dementia Dementia behavioral disturbance: with behavioral disturbance Dementia type: unspecified type Qualified Code(s): F03.91 - Unspecified dementia with behavioral disturbance
[2021-02-01] MEDS: ATORVASTATIN 40 MG TAB PO SCH (12:19)
[2021-02-01] MEDS: ASPIRIN 81 MG ECTAB PO SCH (12:20)
[2021-02-01] MEDS: HEPARIN SOD 5,000 UNIT/0.5 ML VIAL SQ SCH ×2 (12:20→20:09)
[2021-02-01] MEDS: cefTRIAXone SODIUM 1,000 MG in DEXTROSE 5% 50 ML IV SCH (14:36)
[2021-02-02] MEDS ORDERED: LACTATED RINGER'S 1,000 ML IV ONE (06:27)
--- NOTE | 2021-02-02 06:48 | Electrocardiogram Report ---
Test Reason : Blood Pressure : / mmHG Vent. Rate : 068 BPM Atrial Rate : 068 BPM P-R Int : 148 ms QRS Dur : 088 ms QT Int : 422 ms P-R-T Axes : 090 050 005 degrees QTc Int : 448 ms Poor data quality, interpretation may be adversely affected Sinus rhythm with Premature atrial complexes Possible Inferior infarct (cited on or before 15-JUN-2015) Cannot rule out Anterior infarct , age undetermined Abnormal ECG When compared with ECG of 17-JUN-2015 12:28, Premature atrial complexes are now Present T wave inversion less evident in Inferior leads T wave inversion no longer evident in Anterolateral leads Confirmed by Jose Guadalupe Lynn ([id number]) on 02/02/2021 6:48:15 AM Referred By: REFERRED SELF Confirmed By:Jose Guadalupe Lynn
[2021-02-02] MEDS: ISOSORBIDE MONO EXTENDED REL 30 MG TABCR PO SCH (07:34)
[2021-02-02] MEDS: amLODIPine BESYLATE 5 MG TAB PO SCH (07:34)
[2021-02-02] MEDS: ATORVASTATIN 40 MG TAB PO SCH (07:34)
[2021-02-02] MEDS: ASPIRIN 81 MG ECTAB PO SCH (07:34)
[2021-02-02] MEDS: METOPROLOL SUCC 25MG EXT REL TAB PO SCH (07:34)
[2021-02-02] MEDS: HEPARIN SOD 5,000 UNIT/0.5 ML VIAL SQ SCH ×2 (07:34→20:54)
[2021-02-02 07:37] LABS: Hematocrit (blood only) 41.5 % (42-52); Hemoglobin 13.9 g/dL (14.0-18.0); Mean Corpuscular Hgb Conc 33.5 g/dL (32-36); Mean Corpuscular Volume 95.4 fL (80-100); Mean Platelet Volume 9.8 fL (7.4-10.4); Platelet Count 263 K/uL (130-400); RDW Coefficient of Variation 12.7 % (11.5-14.5); RDW Standard Deviation 44.4 fL (36.4-46.3); Red Blood Count 4.35 M/uL (4.7-6.1); White Blood Count 9.12 K/uL (4.8-10.8)
--- NOTE | 2021-02-02 08:14 | Urology Progress Note ---
Date of Service February 02, 2021 Assessment & Plan (1) Acute urinary retention: (2) Hydronephrosis: (3) Urinary tract infection: Plan: 75yo M with a hx of prostate cancer s/p brachytherapy admitted with AMS, suspected UTI, acute urinary retention, b/l hydronephrosis. - Pt afebrile, non-toxic appearing. - Labs reviewed - Wbc normal, Creatinine 1.38 (1.31 yesterday), PSA 0.054. - Urine culture final no growth, continues on IV Ceftriaxone. - No acute intervention warranted at this time. - Maintain Schaffer catheter, recommend keeping for 7-10 days for maximum drainage and bladder rest. - Consider addition of Flomax if no contraindications. - Continue supportive care, antibiotic therapy, and close monitoring. - Possible abnormality of the left ureter noted on CT- Will plan to follow-up as outpatient with contrast enhanced upper tract imaging and to discuss ureteroscopy for further evaluation of the left ureter. - Will arrange outpatient follow-up with urology for voiding trial and continued care. - will sign-off, please contact us with any further questions or concerns. Admission and Anticipated Discharge Date Admission Date: January 31, 2021 Subjective Pt examined at bedside this AM. Awake, standing in room on arrival, nursing at bedside. No acute distress. Pt with underlying dementia. Oriented to person only. ROS unobtainable due to cognitive status. Schaffer intact, draining cloudy yellow urine with sediment. Offered no complaints at time of exam. Review of Systems Review of Systems: Unobtainable due to cognitive status Physical Exam Constitutional: comfortable; no acute distress Neck: normal visual inspection Respiratory: normal respiratory effort and able to speak in complete sentences; no labored breathing and no audible wheezes Gastrointestinal (Abdomen): Inspection/Auscultation: abdomen normal to inspection; abdomen not distended Musculoskeletal: Head/Neck/Chest: normocephalic Skin: No visible rashes or lesions to exposed skin areas Neurologic: moves all extremities Psychiatric: Orientation: alert and oriented to person Genitourinary: Schaffer catheter intact, draining cloudy yellow urine with sediment Results & Data ([facility]) Vital Signs (Past 12 Hours) Vital Signs Temp Pulse Pulse Resp BP BP Pulse Ox 02/02/21 07:24 36.6 C 55 L 19 155/89 H 90 02/02/21 07:05 61 02/02/21 04:02 36.4 C L 84 16 165/88 H 99 02/01/21 23:52 36.7 C 74 18 129/66 96 02/01/21 22:20 55 L PG Care Time/CCT Total # of Minutes Spent Total Time Spent with Patient: Total time spent is greater than 50% in coordination of care (as documented) at patient's floor/unit and/or counseling patient: Coding Level of Care Code 28181 Subseq Hosp Care Lvl 2 Diagnoses Acute urinary retention R33.8 Hydronephrosis N13.30 Hydronephrosis type: unspecified Urinary tract infection N39.0; R31.9 Hematuria presence: with hematuria Urinary tract infection type: site unspecified (1) Urinary tract infection Hematuria presence: with hematuria Urinary tract infection type: site unspecified Qualified Code(s): N39.0 - Urinary tract infection, site not specified; R31.9 - Hematuria, unspecified (2) Hydronephrosis Hydronephrosis type: unspecified Qualified Code(s): N13.30 - Unspecified hydronephrosis
[2021-02-02 09:11] LABS: BUN Creatinine Ratio 16.9 (10-20); Calcium 9.2 mg/dl (8.5-10.1); Creatinine Clr Calc Pharmacy 46.3 ml/min; Est GFR (African American) 57.6 ml/min; Est GFR (Non-African American) 49.7 ml/min; Potassium 3.6 mmol/L (3.5-5.1)
--- NOTE | 2021-02-02 11:05 | Hospitalist Progress Note ---
Date of Service February 02, 2021 Assessment & Plan (1) Altered mental status: (2) Dementia: Plan: Patient is 75-year-old male with PMH dementia, HTN, dyslipidemia, CAD s/p stents, CABG, JANUARY, h/o prostate cancer s/p seed implant, CKD III presented to ER for altered mental status with increased confusion noted today. At baseline is oriented to person only and often has agitation and aggressive tendencies. In ER patient afebrile, patient hypertensive at 186/98, other vitals stable. In ER patient was pulling at Wright catheter after placement and was given Haldol 5 mg IM, and restraints were used Currently patient able to be redirected and is resting in bed Likely metabolic encephalopathy with dementia One-to-one observation Try to avoid benzo sedatives Treat as below Monitor for delirium Frequent reorientation (3) Hydronephrosis: Plan: Bladder outlet obstruction UTI Reported difficulty with urination past several months CT ABD/PELVIS: 1. Prostamegaly with findings of chronic bladder outlet obstruction. Correlation should be made with urinalysis to exclude cystitis. 2. Severe left with moderate right hydroureteronephrosis. Findings may be secondary to the aforementioned bladder outlet obstruction, however there is soft tissue thickening of the proximal left ureter with focal transition point suspicious for a urothelial lesion. Urology consultation recommended. 3. Nonobstructing left nephrolithiasis with urinary bladder calculi. 4. Colonic diverticulosis. 5. Mild rectal wall thickening is likely secondary to partial distention. UA: 3+ leuk esterase,> 30 WBC,> RBC, no bacteria. No leukocytosis. In ER given Rocephin, 500 mL NSS Wright was placed in ER Continue wright cath Continue Rocephin Urine culture neg, stop abx Urology - saw the patient recommended to keep the Wright in for 7 to 10 days (4) CAD (coronary artery disease): Plan: S/P Stents, CABG Continue aspirin, atorvastatin, isosorbide, metoprolol succinate (5) Hypertension: Plan: Continue amlodipine, lisinopril, metoprolol succinate (6) CKD (chronic kidney disease), stage III: Plan: Monitor renal functions, avoid nephrotoxic agents and possible (7) Adenocarcinoma of prostate: Plan: S/P seed implant (8) JANUARY (obstructive sleep apnea): Plan: Previously used BiPAP and CPAP. No longer tolerant DVT Prophylaxis Heparin SQ Full Code as per discussion with pt daughter, Olga Follows with Dr Veras for routine care ROS-No Headache, No Visual Changes, No Nausea, No Vomiting, No Fever, No Chills, No Neck Pain or Stiffness, No Chest Pain, No Palpitations, No SOB, No DANIEL, No Cough, No Sputum, No Wheezing, No Abdominal Pain, No Diarrhea, No Hematemesis, No Hemoptysis, No Unexpected Weight Loss, No Flank pain, No Melena, No Hematochezia, No Frequency, No Urgency, No Burning, No Hematuria, No Rashes, No Diaphoresis. Appetite is Normal Physical Exam Gen-AAO x 1, NAD, Afebrile, demented, weak Head-NCAT, EOMI, PERRLA, Anicteric Sclera, No Posterior Pharyngeal Erythema Neck-Supple, No JVD, No Thyromegaly, No Masses, No LAD, No Bruits Lungs-Clear to Auscultation Bilaterally, No Rales, No Rhonchi, No Wheezing, No Crepitus Chest-No S4, +S1, +S2, No S3, No Murmurs, No Rubs, No Gallops, No Ectopy Abdomen-Soft, Bowel Sounds Present, Non Tender, Non Distended, No Hepatomegaly, No Splenomegaly, No Palpable Masses, No Rebound, No Rigidity, No Guarding Musculoskeletal-Full Range of Motion Bilaterally, No CVAT Extremities-No Cyanosis, No Clubbing, No Edema Nuero-Cranial Nerves II-XII grossly intact, Motor WNL, DTRs WNL, Strength WNL, Non Focal Psych-Demented Admission and Anticipated Discharge Date Admission Date: January 31, 2021 Results & Data Results & Data ([facility]) Vital Signs (Past 12 Hours) Vital Signs Temp Pulse Pulse Resp BP BP Pulse Ox 02/02/21 07:24 36.6 C 55 L 19 155/89 H 90 02/02/21 07:05 61 02/02/21 04:02 36.4 C L 84 16 165/88 H 99 02/01/21 23:52 36.7 C 74 18 129/66 96 (1) Dementia Dementia behavioral disturbance: with behavioral disturbance Dementia type: unspecified type Qualified Code(s): F03.91 - Unspecified dementia with behavioral disturbance
[2021-02-02] MEDS: cefTRIAXone SODIUM 1,000 MG in DEXTROSE 5% 50 ML IV SCH (12:55)
[2021-02-02] MEDS: HALOPERIDOL LACTATE 5 MG/ML 1 ML VIAL IM PRN (23:23)
[2021-02-03] MEDS: ATORVASTATIN 40 MG TAB PO SCH (08:39)
[2021-02-03] MEDS: ASPIRIN 81 MG ECTAB PO SCH (08:39)
[2021-02-03] MEDS: HEPARIN SOD 5,000 UNIT/0.5 ML VIAL SQ SCH ×2 (08:39→21:33)
[2021-02-03] MEDS: ISOSORBIDE MONO EXTENDED REL 30 MG TABCR PO SCH (08:39)
[2021-02-03] MEDS: amLODIPine BESYLATE 5 MG TAB PO SCH (08:39)
[2021-02-03] MEDS: METOPROLOL SUCC 25MG EXT REL TAB PO SCH (08:39)
[2021-02-03 08:44] LABS: BUN Creatinine Ratio 17.6 (10-20); Calcium 8.9 mg/dl (8.5-10.1); Creatinine Clr Calc Pharmacy 49.9 ml/min; Est GFR (Non-African American) 54.4 ml/min; Potassium 3.5 mmol/L (3.5-5.1)
[2021-02-03 08:45] LABS: Hematocrit (blood only) 40.7 % (42-52); Hemoglobin 13.9 g/dL (14.0-18.0); Mean Corpuscular Hgb Conc 34.2 g/dL (32-36); Mean Corpuscular Volume 93.6 fL (80-100); Mean Platelet Volume 9.9 fL (7.4-10.4); Platelet Count 273 K/uL (130-400); RDW Coefficient of Variation 12.4 % (11.5-14.5); RDW Standard Deviation 42.6 fL (36.4-46.3); Red Blood Count 4.35 M/uL (4.7-6.1); White Blood Count 9.03 K/uL (4.8-10.8)
--- NOTE | 2021-02-03 08:52 | Hospitalist Progress Note ---
Date of Service February 03, 2021 Assessment & Plan (1) Altered mental status: (2) Dementia: Plan: Patient is 75-year-old male with PMH dementia, HTN, dyslipidemia, CAD s/p stents, CABG, JANUARY, h/o prostate cancer s/p seed implant, CKD III presented to ER for altered mental status with increased confusion. At baseline is oriented to person only and often has agitation and aggressive tendencies. In ER patient afebrile, patient hypertensive at 186/98, other vitals stable. In ER patient was pulling at Wright catheter after placement and was given Haldol 5 mg IM, and restraints were used Currently patient able to be redirected and is resting in bed Likely metabolic encephalopathy with dementia One-to-one observation, currently pt's daughter at the bedside - says pt is better than his baseline Try to avoid benzo sedatives Treat as below Monitor for delirium Frequent reorientation (3) Hydronephrosis: Plan: Bladder outlet obstruction UTI Reported difficulty with urination past several months CT ABD/PELVIS: 1. Prostamegaly with findings of chronic bladder outlet obstruction. Correlation should be made with urinalysis to exclude cystitis. 2. Severe left with moderate right hydroureteronephrosis. Findings may be secondary to the aforementioned bladder outlet obstruction, however there is soft tissue thickening of the proximal left ureter with focal transition point suspicious for a urothelial lesion. Urology consultation recommended. 3. Nonobstructing left nephrolithiasis with urinary bladder calculi. 4. Colonic diverticulosis. 5. Mild rectal wall thickening is likely secondary to partial distention. UA: 3+ leuk esterase,> 30 WBC,> RBC, no bacteria. No leukocytosis. In ER given Rocephin, 500 mL NSS Wright was placed in ER Continue wright cath Continue Rocephin Urine culture neg, stop abx Urology - saw the patient recommended to keep the Wright in for 7 to 10 days Abnormal ureter image on CT - plan to follow up w/ urology as outpt (4) CAD (coronary artery disease): Plan: S/P Stents, CABG Continue aspirin, atorvastatin, isosorbide, metoprolol succinate (5) Hypertension: Plan: Continue amlodipine, lisinopril, metoprolol succinate (6) CKD (chronic kidney disease), stage III: Plan: Monitor renal functions, avoid nephrotoxic agents and possible (7) Adenocarcinoma of prostate: Plan: S/P seed implant (8) JANUARY (obstructive sleep apnea): Plan: Previously used BiPAP and CPAP. No longer tolerant DVT Prophylaxis Heparin SQ Full Code as per discussion with pt daughter, Olga Follows with Dr Veras for routine care Admission and Anticipated Discharge Date Admission Date: January 31, 2021 Subjective Pt seen in follow up of urinary retention Currently laying in bed, in NAD, sleepy, no complaints Pt's daughter at the bedside, says she saw him ambulating around the bed She reports pt is better than his baseline Pt has hx of dementia Discussed DC, she will take him home to 24 hrs care tomorrow (will organize w/ her sister return home) Review of Systems Review of Systems: All systems reviewed & are unremarkable except as noted in Subjective (pt has hx of dementia, ROS limited) Physical Exam Physical Exam: Gen- elderly M laying in bed in NAD Head-NCAT, EOMI, PERRL Neck-Supple Lungs-Clear to Auscultation Bilaterally, No Rales, No Rhonchi, No Wheezing Chest- +S1, +S2, No Murmurs, No Rubs, No Gallops, No Ectopy Abdomen-Soft, Bowel Sounds Present, Non Tender, Non Distended, No Guarding Musculoskeletal-Full Range of Motion Bilaterally, No CVAT Extremities-No Cyanosis, No Clubbing, No Edema : Wright catheter placed Neuro- sleepy, answers simple questions, no facial asymmetry, moves extremities Psych-Demented Results & Data Results & Data ([facility]) Vital Signs (Past 12 Hours) Vital Signs Temp Pulse Pulse Resp BP BP Pulse Ox 02/03/21 07:31 36.6 C 83 19 178/83 H 98 02/02/21 23:00 37.6 C H 76 18 145/81 H 95 02/02/21 22:30 85 Laboratory Results 02/03/21 02/03/21 02/02/21 Range/Units 07:55 07:55 06:44 WBC 9.03 (4.8-10.8) K/uL RBC 4.35 L (4.7-6.1) M/uL Hgb 13.9 L (14.0-18.0) g/dL Hct 40.7 L (42-52) % MCV 93.6 (80-100) fL MCH 32.0 (25-34) pg MCHC 34.2 (32-36) g/dL RDW Std Deviation 42.6 (36.4-46.3) fL RDW Coeff of Gladys 12.4 (11.5-14.5) % Plt Count 273 (130-400) K/uL MPV 9.9 (7.4-10.4) fL Sodium 139 139 (136-145) mmol/L Potassium 3.5 3.6 (3.5-5.1) mmol/L Chloride 107 106 (98-107) mmol/L Carbon Dioxide 24 27 (21-32) mmol/L Anion Gap 9.0 6.0 (3-11) BUN 23 H 23 H (7-18) mg/dl Creatinine 1.28 1.38 (0.6-1.4) mg/dl Est Cr Clr Drug Dosing 49.9 46.3 ml/min Est GFR ( Amer) 63.0 57.6 ml/min Est GFR (Non-Af Amer) 54.4 49.7 ml/min BUN/Creatinine Ratio 17.6 16.9 (10-20) Glucose 94 70 (70-99) mg/dl Calcium 8.9 9.2 (8.5-10.1) mg/dl Medications Administered Current Inpatient Medications Acetaminophen (Acetaminophen 325 Mg Tab) 650 mg PO Q4H PRN PRN Reason: Pain or Fever Stop: 03/02/21 22:18 Amlodipine Besylate (Amlodipine Besylate 5 Mg Tab) 2.5 mg PO [facility] Stop: 03/02/21 22:18 Last Admin: 02/03/21 08:39 Dose: 2.5 mg Documented by: Aspirin (Aspirin 81 Mg Ectab) 81 mg PO [facility] Stop: 03/03/21 08:59 Last Admin: 02/03/21 08:39 Dose: 81 mg Documented by: Atorvastatin Calcium (Atorvastatin 40 Mg Tab) 80 mg PO [facility] Stop: 03/03/21 08:59 Last Admin: 02/03/21 08:39 Dose: 80 mg Documented by: Haloperidol Lactate (Haloperidol Lactate 5 Mg/Ml 1 Ml Vial) 2 mg IM Q2H PRN PRN Reason: Agitation Stop: 03/02/21 21:21 Last Admin: 02/02/21 23:23 Dose: 2 mg Documented by: Heparin Sodium (Porcine) (Heparin Sod 5,000 Unit/0.5 Ml Vial) 5,000 units SQ Q12 PENDING S[facility] TO [facility] Stop: 03/02/21 22:18 Last Admin: 02/03/21 08:39 Dose: 5,000 units Documented by: Ceftriaxone Sodium 1,000 mg/ (Dextrose) 50 mls @ 100 mls/hr IV Q24H PENDING SALE TO [facility]; Protocol Stop: 02/06/21 13:59 Last Infusion: 02/02/21 13:55 Dose: Infused Documented by: Isosorbide Mononitrate (Isosorbide Nelson Extended Rel 30 Mg Tabcr) 30 mg PO QAM PEND[facility] S[facility] TO [facility] Stop: 03/02/21 22:18 Last Admin: 02/03/21 08:39 Dose: 30 mg Documented by: Lisinopril (Lisinopril 20 Mg Tab) 20 mg PO BID [facility] Stop: 03/02/21 22:18 Last Admin: 02/01/21 00:11 Dose: Not Given Documented by: Metoprolol Succinate (Metoprolol Succ 25mg Ext Rel Tab) 12.5 mg PO QAM [facility] Stop: 03/02/21 22:18 Last Admin: 02/03/21 08:39 Dose: 12.5 mg Documented by: Nitroglycerin (Nitroglycerin Sl 0.4 Mg/Tab Tab) 0.4 mg SL UD PRN PRN Reason: Chest Pain Stop: 03/02/21 22:18 Polyethylene Glycol (Polyethylene (Miralax) 17 Gm Pack) 17 gm PO DAILY PRN PRN Reason: Constipation Stop: 03/02/21 22:18 (1) Dementia Dementia behavioral disturbance: with behavioral disturbance Dementia type: unspecified type Qualified Code(s): F03.91 - Unspecified dementia with behavioral disturbance
[2021-02-03] MEDS: cefTRIAXone SODIUM 1,000 MG in DEXTROSE 5% 50 ML IV SCH (13:18)
[2021-02-03] MEDS: HALOPERIDOL LACTATE 5 MG/ML 1 ML VIAL IM PRN (23:11)
[2021-02-04 08:08] LABS: Hematocrit (blood only) 42.8 % (42-52); Hemoglobin 14.4 g/dL (14.0-18.0); Mean Corpuscular Hemoglobin 31.9 pg (25-34); Mean Corpuscular Hgb Conc 33.6 g/dL (32-36); Mean Corpuscular Volume 94.9 fL (80-100); Mean Platelet Volume 10.3 fL (7.4-10.4); Platelet Count 276 K/uL (130-400); RDW Coefficient of Variation 12.6 % (11.5-14.5); RDW Standard Deviation 43.7 fL (36.4-46.3); Red Blood Count 4.51 M/uL (4.7-6.1); White Blood Count 9.01 K/uL (4.8-10.8)
[2021-02-04 08:59] LABS: BUN Creatinine Ratio 16.7 (10-20); Calcium 9.2 mg/dl (8.5-10.1); Creatinine Clr Calc Pharmacy 52.1 ml/min; Est GFR (African American) 64.2 ml/min; Est GFR (Non-African American) 55.4 ml/min; Magnesium 2.3 mg/dl (1.8-2.4); Phosphorus 2.5 mg/dl (2.5-4.9); Potassium 3.2 mmol/L (3.5-5.1)
[2021-02-04] MEDS: amLODIPine BESYLATE 5 MG TAB PO SCH (09:31)
[2021-02-04] MEDS: ISOSORBIDE MONO EXTENDED REL 30 MG TABCR PO SCH (09:32)
[2021-02-04] MEDS: METOPROLOL SUCC 25MG EXT REL TAB PO SCH (09:32)
[2021-02-04] MEDS: ATORVASTATIN 40 MG TAB PO SCH (09:32)
[2021-02-04] MEDS: ASPIRIN 81 MG ECTAB PO SCH (09:40)
[2021-02-04] MEDS: HEPARIN SOD 5,000 UNIT/0.5 ML VIAL SQ SCH (09:40)
[2021-02-04] MEDS ORDERED: POTASSIUM CHLORIDE CRTAB 20 MEQ TABCR PO STA (11:01)
--- NOTE | 2021-02-04 11:03 | Hospitalist Progress Note ---
Date of Service February 04, 2021 Assessment & Plan (1) Altered mental status: (2) Dementia: Plan: Patient is 75-year-old male with PMH dementia, HTN, dyslipidemia, CAD s/p stents, CABG, JANUARY, h/o prostate cancer s/p seed implant, CKD III presented to ER for altered mental status with increased confusion. At baseline is oriented to person only and often has agitation and aggressive tendencies. In ER patient afebrile, patient hypertensive at 186/98, other vitals stable. In ER patient was pulling at Wright catheter after placement and was given Haldol 5 mg IM, and restraints were used Currently patient able to be redirected and is resting in bed Likely metabolic encephalopathy with dementia One-to-one observation initially yesterday - pt's daughter at the bedside - says pt is better than his baseline - plan to DC home w/ 24 hrs care today Try to avoid benzo sedatives Treat as below Monitor for delirium Frequent reorientation (3) Hydronephrosis: Plan: Bladder outlet obstruction UTI Reported difficulty with urination past several months CT ABD/PELVIS: 1. Prostamegaly with findings of chronic bladder outlet obstruction. Correlation should be made with urinalysis to exclude cystitis. 2. Severe left with moderate right hydroureteronephrosis. Findings may be secondary to the aforementioned bladder outlet obstruction, however there is soft tissue thickening of the proximal left ureter with focal transition point suspicious for a urothelial lesion. Urology consultation recommended. 3. Nonobstructing left nephrolithiasis with urinary bladder calculi. 4. Colonic diverticulosis. 5. Mild rectal wall thickening is likely secondary to partial distention. UA: 3+ leuk esterase,> 30 WBC,> RBC, no bacteria. No leukocytosis. In ER given Rocephin, 500 mL NSS Wright was placed in ER Continue wright cath Continue Rocephin Urine culture neg, stop abx Urology - saw the patient recommended to keep the Wright in for 7 to 10 days Abnormal ureter image on CT - plan to follow up w/ urology as outpt (4) CAD (coronary artery disease): Plan: S/P Stents, CABG Continue aspirin, atorvastatin, isosorbide, metoprolol succinate (5) Hypertension: Plan: Continue amlodipine, lisinopril, metoprolol succinate (6) CKD (chronic kidney disease), stage III: Plan: Monitor renal functions, avoid nephrotoxic agents (7) Adenocarcinoma of prostate: Plan: S/P seed implant (8) JANUARY (obstructive sleep apnea): Plan: Previously used BiPAP and CPAP. No longer tolerant DVT Prophylaxis Heparin SQ Full Code as per discussion with pt daughterOlga Follows with Dr Veras for routine care Admission and Anticipated Discharge Date Admission Date: January 31, 2021 Subjective Pt seen in follow up of urinary retention Currently laying in bed, in NAD, sleepy, no complaints Pt's daughter at the bedside yesterday, says she saw him ambulating around the bed, felt he was better than his baseline Pt has hx of dementia Discussed DC, plan is she will take him home to 24 hrs care today Review of Systems Review of Systems: All systems reviewed & are unremarkable except as noted in Subjective (ROS limited d/t dementia) and Unobtainable due to cognitive status Physical Exam Physical Exam: Gen- elderly M laying in bed in NAD Head-NCAT, EOMI, PERRL Neck-Supple Lungs-Clear to Auscultation Bilaterally, No Rales, No Rhonchi, No Wheezing Chest- +S1, +S2, No Murmurs, No Rubs, No Gallops, No Ectopy Abdomen-Soft, Bowel Sounds Present, Non Tender, Non Distended, No Guarding Musculoskeletal-Full Range of Motion Bilaterally, No CVAT Extremities-No Cyanosis, No Clubbing, No Edema : Wright catheter placed, drains yellow urine Neuro- sleepy, answers some simple questions, no facial asymmetry, moves extremities Psych-Demented Results & Data Results & Data ([facility]) Vital Signs (Past 12 Hours) Vital Signs Temp Pulse Pulse Pulse Resp BP Pulse Ox 02/04/21 08:02 53 L 02/04/21 07:48 36.6 C 57 L 20 171/96 H 96 02/04/21 04:33 55 L 02/04/21 03:00 77 18 Laboratory Results 02/04/21 02/04/21 Range/Units 07:18 07:18 WBC 9.01 (4.8-10.8) K/uL RBC 4.51 L (4.7-6.1) M/uL Hgb 14.4 (14.0-18.0) g/dL Hct 42.8 (42-52) % MCV 94.9 (80-100) fL MCH 31.9 (25-34) pg MCHC 33.6 (32-36) g/dL RDW Std Deviation 43.7 (36.4-46.3) fL RDW Coeff of Gladys 12.6 (11.5-14.5) % Plt Count 276 (130-400) K/uL MPV 10.3 (7.4-10.4) fL Sodium 139 (136-145) mmol/L Potassium 3.2 L (3.5-5.1) mmol/L Chloride 105 (98-107) mmol/L Carbon Dioxide 26 (21-32) mmol/L Anion Gap 8.0 (3-11) BUN 21 H (7-18) mg/dl Creatinine 1.26 (0.6-1.4) mg/dl Est Cr Clr Drug Dosing 52.1 ml/min Est GFR ( Amer) 64.2 ml/min Est GFR (Non-Af Amer) 55.4 ml/min BUN/Creatinine Ratio 16.7 (10-20) Glucose 80 (70-99) mg/dl Calcium 9.2 (8.5-10.1) mg/dl Phosphorus 2.5 (2.5-4.9) mg/dl Magnesium 2.3 (1.8-2.4) mg/dl Medications Administered Current Inpatient Medications Acetaminophen (Acetaminophen 325 Mg Tab) 650 mg PO Q4H PRN PRN Reason: Pain or Fever Stop: 03/02/21 22:18 Amlodipine Besylate (Amlodipine Besylate 5 Mg Tab) 2.5 mg PO [facility] Stop: 03/02/21 22:18 Last Admin: 02/04/21 09:31 Dose: 2.5 mg Documented by: Aspirin (Aspirin 81 Mg Ectab) 81 mg PO [facility] Stop: 03/03/21 08:59 Last Admin: 02/04/21 09:40 Dose: 81 mg Documented by: Atorvastatin Calcium (Atorvastatin 40 Mg Tab) 80 mg PO [facility] Stop: 03/03/21 08:59 Last Admin: 02/04/21 09:32 Dose: 80 mg Documented by: Haloperidol Lactate (Haloperidol Lactate 5 Mg/Ml 1 Ml Vial) 2 mg IM Q2H PRN PRN Reason: Agitation Stop: 03/02/21 21:21 Last Admin: 02/03/21 23:11 Dose: 2 mg Documented by: Heparin Sodium (Porcine) (Heparin Sod 5,000 Unit/0.5 Ml Vial) 5,000 units SQ Q12 [facility] Stop: 03/02/21 22:18 Last Admin: 02/04/21 09:40 Dose: Not Given Documented by: Ceftriaxone Sodium 1,000 mg/ (Dextrose) 50 mls @ 100 mls/hr IV Q24H [facility]; Protocol Stop: 02/06/21 13:59 Last Infusion: 02/03/21 13:57 Dose: Infused Documented by: Isosorbide Mononitrate (Isosorbide Elbert Extended Rel 30 Mg Tabcr) 30 mg PO QAM [facility] Stop: 03/02/21 22:18 Last Admin: 02/04/21 09:32 Dose: 30 mg Documented by: Lisinopril (Lisinopril 20 Mg Tab) 20 mg PO BID [facility] Stop: 03/02/21 22:18 Last Admin: 02/01/21 00:11 Dose: Not Given Documented by: Metoprolol Succinate (Metoprolol Succ 25mg Ext Rel Tab) 12.5 mg PO QAM [facility] Stop: 03/02/21 22:18 Last Admin: 02/04/21 09:32 Dose: 12.5 mg Documented by: Nitroglycerin (Nitroglycerin Sl 0.4 Mg/Tab Tab) 0.4 mg SL UD PRN PRN Reason: Chest Pain Stop: 03/02/21 22:18 Polyethylene Glycol (Polyethylene (Miralax) 17 Gm Pack) 17 gm PO DAILY PRN PRN Reason: Constipation Stop: 03/02/21 22:18 Potassium Chloride (Potassium Chloride Crtab 20 Meq Tabcr) 40 meq PO NOW STA Stop: 02/04/21 11:02 (1) Dementia Dementia behavioral disturbance: with behavioral disturbance Dementia type: unspecified type Qualified Code(s): F03.91 - Unspecified dementia with behavioral disturbance
--- NOTE | 2021-02-04 12:30 | Discharge Summary ---
Date of Service February 04, 2021 Admission HPI Per Admitting Provider Patient is 75-year-old male with PMH dementia, HTN, dyslipidemia, CAD s/p stents, CABG, JANUARY, h/o prostate cancer s/p seed implant, CKD III presented to ER for altered mental status. History obtained from patient's daughter secondary to patient's current status. Patient lives with other daughter who cares for him and they have caregivers assisting. Reports patient baseline is oriented to person only and often has agitation and aggressive tendencies. Reports daughter left house today and upon return noted patient was lethargic and did not seem to be responding/talking. Did not notice any noted difficulty with breathing. Denies patient complaining of any chest pain recently denies any known fever chills, vomiting, diarrhea. Reports over the past 2 months patient has been having difficulty urinating. In ER patient afebrile, patient hypertensive at 186/98, other vitals stable. No leukocytosis. Patient had complained of abdominal discomfort to ER staff. Wright catheter was placed with return of 1 L urine output. Since Wright placement patient no longer complaining of abdominal discomfort however is agitated with Wright and has been pulling at catheter. CT head no acute changes. Chest x-ray no acute infiltrate. CT abdomen pelvis: 1. Prostamegaly with findings of chronic bladder outlet obstruction. Severe left with moderate right hydroureteronephrosis. Findings may be secondary to the aforementioned bladder outlet obstruction, however there is soft tissue thickening of the proximal left ureter with focal transition point suspicious for a urothelial lesion. Nonobstructing left nephrolithiasis with urinary bladder calculi. Admission Exam Per Admitting Provider General: Initially fidgeting in bed, then calms and resting in bed, no other distress noted, WDWN elderly male Head: normocephalic, atraumatic Eyes: PERRL, EOM's intact, conjunctiva non-injected, anicteric ENT: normal inspection external ears, nose, mucous membranes moist Neck: supple, trachea midline Lungs: clear, no respiratory distress, no wheezing/rhonchi/rales CV: RRR, no murmur, no pretibial edema Abd: normal BS, soft, non-tender Ext: no cyanosis, no calf tenderness Neuro: Alert, oriented to person. Pt initially restless then calms and resting bed and cooperative with exam, no focal deficits noted Skin: warm, dry Principal Diagnosis Altered mental status Bladder outlet obstruction Hydronephrosis Discharge Exam Gen- elderly M laying in bed in NAD Head-NCAT, EOMI, PERRL Neck-Supple Lungs-Clear to Auscultation Bilaterally, No Rales, No Rhonchi, No Wheezing Chest- +S1, +S2, No Murmurs, No Rubs, No Gallops, No Ectopy Abdomen-Soft, Bowel Sounds Present, Non Tender, Non Distended, No Guarding Musculoskeletal-Full Range of Motion Bilaterally, No CVAT Extremities-No Cyanosis, No Clubbing, No Edema : Wright catheter placed, drains yellow urine Neuro- sleepy, answers some simple questions, no facial asymmetry, moves extremities Psych-Demented Discharge Data Allergies Allergy/AdvReac Type Severity Reaction Status Date / Time No Known Allergies Allergy Unverified 01/31/21 15:40 Consultations 01/31/21 15:19 ED Decision to Admit Stat 01/31/21 22:19 Consult Urology Routine Ordered Studies 01/31/21 12:41 CT abd pelvis wo con Stat IMPRESSION: 1. Prostamegaly with findings of chronic bladder outlet obstruction. Correlation should be made with urinalysis to exclude cystitis. 2. Severe left with moderate right hydroureteronephrosis. Findings may be secondary to the aforementioned bladder outlet obstruction, however there is soft tissue thickening of the proximal left ureter with focal transition point suspicious for a urothelial lesion. Urology consultation recommended. 3. Nonobstructing left nephrolithiasis with urinary bladder calculi. 4. Colonic diverticulosis. 5. Mild rectal wall thickening is likely secondary to partial distention. 6. Additional findings as above. CT head/brain wo con Stat IMPRESSION: Motion degraded exam. No acute intracranial abnormality identified. Hospital Course (1) Altered mental status: (2) Dementia: Patient is 75-year-old male with PMH dementia, HTN, dyslipidemia, CAD s/p stents, CABG, JANUARY, h/o prostate cancer s/p seed implant, CKD III presented to ER for altered mental status with increased confusion. At baseline is oriented to person only and often has agitation and aggressive tendencies. In ER patient afebrile, patient hypertensive at 186/98, other vitals stable. In ER patient was pulling at Wright catheter after placement and was given Haldol 5 mg IM, and restraints were used Currently patient able to be redirected and is resting in bed Likely metabolic encephalopathy with dementia One-to-one observation initially yesterday - pt's daughter at the bedside - says pt is better than his baseline - plan to DC home w/ 24 hrs care today Try to avoid benzo sedatives Treat as below Monitor for delirium Frequent reorientation (3) Hydronephrosis: Bladder outlet obstruction concern for UTI - but UTI not confirmed, empiric Abx stopped Reported difficulty with urination past several months CT ABD/PELVIS: 1. Prostamegaly with findings of chronic bladder outlet obstruction. Correlation should be made with urinalysis to exclude cystitis. 2. Severe left with moderate right hydroureteronephrosis. Findings may be secondary to the aforementioned bladder outlet obstruction, however there is soft tissue thickening of the proximal left ureter with focal transition point suspicious for a urothelial lesion. Urology consultation recommended. 3. Nonobstructing left nephrolithiasis with urinary bladder calculi. 4. Colonic diverticulosis. 5. Mild rectal wall thickening is likely secondary to partial distention. UA: 3+ leuk esterase,> 30 WBC,> RBC, no bacteria. No leukocytosis. In ER given Rocephin, 500 mL NSS Wright was placed in ER Continue wright cath Continue Rocephin Urine culture neg, stop abx Urology - saw the patient recommended to keep the Wright in for 7 to 10 days Abnormal ureter image on CT - plan to follow up w/ urology as outpt (4) CAD (coronary artery disease): S/P Stents, CABG Continue aspirin, atorvastatin, isosorbide, metoprolol succinate (5) Hypertension: Continue amlodipine, lisinopril, metoprolol succinate (6) CKD (chronic kidney disease), stage III: Monitor renal functions, avoid nephrotoxic agents (7) Adenocarcinoma of prostate: S/P seed implant (8) JANUARY (obstructive sleep apnea): Previously used BiPAP and CPAP. No longer tolerant Full Code as per discussion with pt daughterOlga Follows with Dr Veras for routine [facility] Attestation I certify that this patient is under my care and that I, or a physicians assistant principal working with me, had a face to-face encounter that meets the home health [id number] encounter requirements with this patient. The encounter with the patient was in whole, or in part, for the following medical condition, which is the primary reason for home health care (list medical condition): I certify that, based on my findings, the following services are medically necessary home health services: My clinical findings support the need for the above services because: Skilled Nsg Assessment Vital Signs Further, I certify that my clinical findings support that this patient is homebound (i.e. absences from home require considerable and taxing effort and are for medical reasons or quaker services or infrequently or of short duration when for other reasons) because: Transportation Assistance/Unable to Leave Home Unassisted Certification for Home Health Services: Based on the above findings, I certify that this patient is confined to the home and needs intermittent retirement care, physical therapy and/or speech therapy or continues to need occupational therapy. The patient is under my care, and I have initiated the establishment of the plan of care. This patient will be followed by a physician who will periodically review the plan of care. Total Time Total Time Spent Total Time Spent (In Minutes): 40 Discharge Plan Discharge Items Patient Disposition: Home - Home Health Services Reason For Visit: AMS, HYDRONEPHROSIS Discharge Diagnosis: Altered mental status Bladder outlet obstruction Hydronephrosis Activity: Per Instructions section Non-emergency contact: Primary Care Provider and Urologist Call non-emergency contact if: you have any medication questions and your symptoms worsen Follow-up/Referrals: Josseline Veras MD [Primary Care Provider] - (Date & Time 02/09/2021 10:20 AM Provider Iris Gan MD Department General Internal Medicine [facility] ) Diet: Heart Healthy Addtl Attending Provider Instructions: Follow-up with primary care doctor, the appointment was scheduled for you for February 09. You will also need to follow-up with urology, on your urinary retention/obstruction. Keep Wright catheter in until you discuss further with urology. Pending Studies at Discharge: No Stand-Alone Forms: [employer], Smoking Cessation Medications and DC Order Prescriptions: Continued metoprolol succinate [Toprol XL] 25 mg tablet extended release 24 hr 12.5 mg PO QAM RF: 0 lisinopril 20 mg Tablet 20 mg PO BID RF: 0 aspirin 81 mg Tablet,Chewable 81 mg PO QAM RF: 0 nitroglycerin 0.4 mg Tablet, Sublingual 0.4 mg sublingual DIRECTED PRN (Reason: Chest Pain) RF: 0 atorvastatin 80 mg Tablet 80 mg PO QAM RF: 0 amlodipine 2.5 mg Tablet 2.5 mg PO QAM RF: 0 isosorbide mononitrate 30 mg Tablet Extended Release 24 Hr 30 mg PO QAM RF: 0 multivitamin Tablet 1 tab PO QAM RF: 0 Discharge Orders: Discharge Order (Routine); Ordered 02/04/21 Ordered By: Alfonso Moscoso Admission Data Admit Date/Time: 01/31/21 15:43 Attending Provider: Alfonso Moscoso Admit Provider: Tamanna Fish Primary Care Provider: Josseline Veras Other Providers: Tamanna Fish ; Benito Andujar ; Geronimo Frazier ; [facility]
== END 2021-02-04 13:45 | disposition home health service (06) | DRG 698 ==
LOC: ED 12:34 → SUATTDRO 15:43 → EDINP 15:43 → 2N 02-01 18:38

== ENCOUNTER 2021-03-12 10:37 | Inpatient (IN) ==
[2021-03-12] MEDS ORDERED: SODIUM CHLORIDE 0.9% 1000ML 1,000 ML IV ONE ×2 (11:05→14:44)
--- NOTE | 2021-03-12 11:18 | Emergency Department Note ---
Impression & Plan ABEBA (acute kidney injury), Acute UTI, Leukocytosis, Hydronephrosis, COVID-19 ED Provider Note NAME: MARIMAR BALDWIN AGE: 76 SEX: M : 1945 ARRIVES VIA: Walk-In INFORMANT: Patient ED PROVIDER(S): Jessee Catherine DO CHIEF COMPLAINT: Altered mental status confusion HPI: Patient is a 76-year-old male who presents the ER for weakness and confusion. Daughter who is at bedside notes that he has been getting more confused over the past 2 weeks. He has not been eating and drinking. He had a Schaffer in but he pulled it out and he does not want it replaced. He does have dementia. She notes it significantly worse. He is to be able to get up and move around but now is a full support. He lives at home with his other daughter. They deny any vomiting. No fevers. No other exacerbating or remitting factors. They note his urine is very dark. ROS: See above HPI for pertinent positives & negatives. A total of 10 systems reviewed and were otherwise negative. PAST MEDICAL HISTORY:See Below PAST SURGICAL HISTORY:See Below FAMILY HISTORY:See Below SOCIAL HISTORY:See Below HOME MEDICATIONS:See Below ALLERGIES:See Below VITALS:See Below PHYSICAL EXAMINATION: GENERAL: Sitting up in bed, alert, disheveled, slightly ill-appearing, EYE EXAM: normal conjunctiva. PERRL and EOM's grossly intact. OROPHARYNX: no exudate, no erythema, lips, buccal mucosa, and tongue normal and mucous membranes are moist NECK: supple, no nuchal rigidity, no adenopathy, non-tender LUNGS: Clear to auscultation. Normal chest wall mechanics HEART: no murmurs, S1 normal and S2 normal ABDOMEN: abdomen soft, non-tender, normo-active bowel sounds, no masses, no rebound or guarding. UPPER EXTREMITIES: upper extremities are grossly normal. LOWER EXTREMITIES: No pitting edema. NEURO EXAM: Awake, alert, confused moving all extremities nonfocal. MEDICAL DECISION MAKING: Patient is a 76-year-old male who presents ER for above-stated complaint. IV wa s established blood work was obtained. Labs show leukocytosis of 17,000. No significant anemia. BMP with mild acidosis with a CO2 of 20 and a creatinine of 2 up from baseline of 1. Calcium was elevated at 10. Lipase was slightly elevated at 116. UA does show UTI. Covid positive. CT abdomen pelvis shows hydro-. Patient was given IV Rocephin. Updated bedside. Discussed with daughter at bedside. Patient was admitted for further work-up. Patient was also Covid positive but no upper respiratory symptoms. Patient was also given IV fluids and IV Rocephin. Triage Nursing notes reviewed. Limited review of prior medical records performed Vital Signs: reviewed and remarkable for no significant abnormalities Differential diagnosis: Infection, dehydration, metabolic abnormality, hypo/hyperglycemia, electrolyte disturbance, anemia, hypoxia, cardiac sources, intracerebral event, toxicologic, neurologic, as well as other pathologies. ER treatment provided: See below Diagnostics interpreted by me: ECG: none Cardiac Monitoring: An order was placed for continuous cardiac monitoring. The monitor shows a rate of 70 with sinus rhythm. Laboratory studies: As stated above and show below. Imaging studies: CT head and pelvis as discussed above Consultation(s): Discussed the hospitalist further evaluation Procedures: none Critical Care: None Past Med/Surg History Medical History Adenocarcinoma of prostate (12/28/12) "Rising PSA, pretreatment PSA 5.05 Status post ultrasound-guided biopsies number the 2012 Adenocarcinoma with Liane 3+3 Lupron injection 03/27/2013 to downsize the prostate Status post prostate seed implant 03/04/2014 as monotherapy. He received 115 Gy, 86 seeds were placed" Anxiety WITH ANY CHANGE IN ROUTINE Arthritis CAD (coronary artery disease) "s/p CABG 1998" CKD (chronic kidney disease), stage III Dementia History of kidney stones Hyperlipidemia Hypertension Myocardial Infarction LAST EVENT 2014>FOLLOWED BY [facility] (obstructive sleep apnea) no device Surgical History H/O colonoscopy with polypectomy H/O prostate biopsy History of cataract surgery RT/LEFT History of lumbar surgery X 2 (NO HARDWARE) History of tooth extraction S/P CABG (coronary artery bypass graft) "x2 in 1998" AT [facility] S/P cardiac catheterization "in setting of NSTEMI 06/2014- POBA to OM" AT [facility] Family History Father Heart disease Brother Heart disease Hypertension Mother Heart disease Other No family history of adverse response to anesthesia Social History Smoking Status: Former smoker Tobacco Type: Cigarettes Second Hand Exposure: No; Hx Alcohol Use: Yes Hx Substance Use: No Preferred Language: Stateless Communication Ability: Impaired Television And Radio Repairer Required: No Beliefs That Will Affect Care: None Current Living Situation: Family Current Living Situation Comment: LIVES WITH DAUGHTER AND HER FAMILY (HAS CAREGIVER 5 DAYS PER WEEK) Feels Safe at Home: Yes Assistive Devices: Glasses Allergies Allergies Allergy/AdvReac Type Severity Reaction Status Date / Time No Known Allergies Allergy Verified 03/12/21 12:04 Home Meds Home Medications Medication Instructions Recorded Confirmed amlodipine 2.5 mg tablet 2.5 mg PO QAM 08/28/18 03/12/21 atorvastatin 80 mg tablet 80 mg PO QAM 08/28/18 03/12/21 isosorbide mononitrate 30 mg 30 mg PO QAM 08/28/18 03/12/21 tablet,extended release 24 hr lisinopril 20 mg tablet 20 mg PO BID 08/28/18 03/12/21 nitroglycerin 0.4 mg sublingual 0.4 mg SUBLINGUAL DIRECTED PRN 08/28/18 03/12/21 tablet metoprolol succinate 25 mg 12.5 mg PO QAM tab 10/02/18 03/12/21 tablet,extended release 24 hr (Toprol XL) multivitamin 1 tab PO QAM 01/31/21 03/12/21 oxycodone 5 mg tablet 5 mg PO Q6H PRN 03/12/21 03/12/21 quetiapine 25 mg tablet 12.5 mg PO DAILY PRN 03/12/21 03/12/21 Previous Rx's Medication Instructions Recorded tamsulosin 0.4 mg capsule 0.4 mg PO DAILY #90 cap 02/23/21 Results & Data (ED) Vital Signs Vital Signs - 24 hr 03/12/21 10:44 03/12/21 11:06 03/12/21 12:00 Temperature 36.4 C L Temperature Source Oral Pulse Rate 92 H Pulse Rate [Right Finger] 73 Pulse Rhythm [Right Finger] Irregular Pulse Strength [Right Finger] Normal Respiratory Rate 20 18 Respiratory Effort / Characteristics Non-Labored Non-Labored Respiratory Depth Normal Normal Respiratory Pattern Regular Blood Pressure 109/80 Blood Pressure [Right Arm] 92/73 L Blood Pressure Mean 89 Blood Pressure Mean [Right Arm] 79 Blood Pressure Position [Right Arm] Lying Pulse Oximetry 97 95 Oxygen Delivery Method Room Air Room Air Room Air Sepsis Recent Fever Within 48 Hours No Sepsis New/Unexplained Change in Mental Status No Sepsis Action Taken by Nursing No Action Required 03/12/21 14:00 03/12/21 16:00 Temperature Temperature Source Pulse Rate Pulse Rate [Right Finger] 84 77 Pulse Rhythm [Right Finger] Pulse Strength [Right Finger] Normal Normal Respiratory Rate 18 16 Respiratory Effort / Characteristics Non-Labored Non-Labored Respiratory Depth Normal Normal Respiratory Pattern Regular Regular Blood Pressure Blood Pressure [Right Arm] 116/77 116/83 Blood Pressure Mean Blood Pressure Mean [Right Arm] 90 94 Blood Pressure Position [Right Arm] Lying Lying Pulse Oximetry 96 94 Oxygen Delivery Method Room Air Sepsis Recent Fever Within 48 Hours Sepsis New/Unexplained Change in Mental Status Sepsis Action Taken by Nursing Laboratory Data Result diagrams: 03/12/21 11:10 03/12/21 11:10 Lab Results 03/12/21 03/12/21 03/12/21 Range/Units 11:10 11:10 12:43 WBC 17.34 H (4.8-10.8) K/uL RBC 5.52 (4.7-6.1) M/uL Hgb 17.9 (14.0-18.0) g/dL Hct 52.1 H (42-52) % MCV 94.4 (80-100) fL MCH 32.4 (25-34) pg MCHC 34.4 (32-36) g/dL RDW Std Deviation 46.1 (36.4-46.3) fL RDW Coeff of Gladys 13.4 (11.5-14.5) % Plt Count 294 (130-400) K/uL MPV 10.4 (7.4-10.4) fL Immature Gran % (Auto) 0.2 % Neut % (Auto) 89.4 % Lymph % (Auto) 7.4 % Kingfisher % (Auto) 2.8 % Eos % (Auto) 0.1 % Baso % (Auto) 0.1 % Neut # (Auto) 15.50 H (1.4-6.5) K/uL Lymph # (Auto) 1.28 (1.2-3.4) K/uL Kingfisher # (Auto) 0.49 (0.11-0.59) K/uL Eos # (Auto) 0.01 (0-0.5) K/uL Baso # (Auto) 0.02 (0-0.2) K/uL Immature Gran # (Auto) 0.04 H (0.00-0.02) K/uL Sodium 142 (136-145) mmol/L Potassium 4.9 (3.5-5.1) mmol/L Chloride 108 H (98-107) mmol/L Carbon Dioxide 20 L (21-32) mmol/L Anion Gap 14 H (3-11) BUN 59 H (6-23) mg/dl Creatinine 2.04 H (0.6-1.4) mg/dl Est Cr Clr Drug Dosing Not Reportable Est GFR ( Amer) 35.6 ml/min Est GFR (Non-Af Amer) 30.7 ml/min BUN/Creatinine Ratio 28.9 H (10-20) Glucose 140 H (70-99(Fasting)) mg/dl Calcium 10.2 H (8.5-10.1) mg/dl Total Bilirubin 0.9 (0.2-1.0) mg/dl AST 31 (13-39) U/L ALT 18 (7-52) U/L Alkaline Phosphatase 149 H (34-104) U/L Total Protein 8.2 (6.0-8.3) gm/dl Albumin 4.0 (3.4-5.0) gm/dl Globulin 4.2 H (2.5-4.0) gm/dl Albumin/Globulin Ratio 1.0 (0.9-2) Lipase 116 H (11-82) U/L Urine Color Urine Appearance (Clear) Urine pH (4.5-7.5) Ur Specific [place] (1.000-1.030) Urine Protein (Negative) Urine Glucose (UA) (Negative) Urine Ketones (Negative) Urine Blood (Negative) Urine Nitrite (Negative) Urine Bilirubin (Negative) Urine Urobilinogen (Negative) Ur Leukocyte Esterase (Negative) Urine WBC (Auto) (0-5) /hpf Urine RBC (Auto) (0-4) /hpf U Hyaline Cast (Auto) (0-5) /lpf U Epithel Cells (Auto) (0-5) /lpf Urine Bacteria (Auto) (Negative) Urine Yeast SARS-CoV-2, RNA, NAAT POSITIVE A* (NEGATIVE) 03/12/21 Range/Units Unknown WBC (4.8-10.8) K/uL RBC (4.7-6.1) M/uL Hgb (14.0-18.0) g/dL Hct (42-52) % MCV (80-100) fL MCH (25-34) pg MCHC (32-36) g/dL RDW Std Deviation (36.4-46.3) fL RDW Coeff of Gladys (11.5-14.5) % Plt Count (130-400) K/uL MPV (7.4-10.4) fL Immature Gran % (Auto) % Neut % (Auto) % Lymph % (Auto) % Kingfisher % (Auto) % Eos % (Auto) % Baso % (Auto) % Neut # (Auto) (1.4-6.5) K/uL Lymph # (Auto) (1.2-3.4) K/uL King[place]isher # (Auto) (0.11-0.59) K/uL Eos # (Auto) (0-0.5) K/uL Baso # (Auto) (0-0.2) K/uL Immature Gran # (Auto) (0.00-0.02) K/uL Sodium (136-145) mmol/L Potassium (3.5-5.1) mmol/L Chloride (98-107) mmol/L Carbon Dioxide (21-32) mmol/L Anion Gap (3-11) BUN (6-23) mg/dl Creatinine (0.6-1.4) mg/dl Est Cr Clr Drug Dosing Est GFR ( Amer) ml/min Est GFR (Non-Af Amer) ml/min BUN/Creatinine Ratio (10-20) Glucose (70-99(Fasting)) mg/dl Calcium (8.5-10.1) mg/dl Total Bilirubin (0.2-1.0) mg/dl AST (13-39) U/L ALT (7-52) U/L Alkaline Phosphatase (34-104) U/L Total Protein (6.0-8.3) gm/dl Albumin (3.4-5.0) gm/dl Globulin (2.5-4.0) gm/dl Albumin/Globulin Ratio (0.9-2) Lipase (11-82) U/L Urine Color Dark Yellow Urine Appearance Cloudy A (Clear) Urine pH 5.5 (4.5-7.5) Ur Specific [place] 1.025 (1.000-1.030) Urine Protein 3+ H (Negative) Urine Glucose (UA) Negative (Negative) Urine Ketones Trace H (Negative) Urine Blood 3+ H (Negative) Urine Nitrite Positive A (Negative) Urine Bilirubin 1+ H (Negative) Urine Urobilinogen Negative (Negative) Ur Leukocyte Esterase 1+ H (Negative) Urine WBC (Auto) >30 H (0-5) /hpf Urine RBC (Auto) >30 H (0-4) /hpf U Hyaline Cast (Auto) 5-10 H (0-5) /lpf U Epithel Cells (Auto) 10-20 H (0-5) /lpf Urine Bacteria (Auto) 1+ H (Negative) Urine Yeast Not Reportable SARS-CoV-2, RNA, NAAT (NEGATIVE) Administered Medications Lorazepam (Ativan) 0.5 mg in 1 mls @ 0.5 mls/min IV UD PRN PRN Reason: Agitation Stop: 04/11/21 11:39 Last Admin: 03/12/21 13:10 Dose: 0.5 mls/min Documented by: [id number] Discontinued Medications Sodium Chloride (Nss 1000ml) 1,000 mls @ 999 mls/hr IV .Q1H1M ONE Stop: 03/12/21 12:05 Last Infusion: 03/12/21 12:36 Dose: 0 mls/hr Documented by: [id number] Admin: 03/12/21 11:17 Dose: 999 mls/hr Documented by: [id number] Ceftriaxone Sodium (Rocephin) 1,000 mg in 50 mls @ 100 mls/hr IV NOW STA Stop: 03/12/21 12:44 Last Infusion: 03/12/21 14:00 Dose: 0 mls/hr Documented by: [id number] Admin: 03/12/21 13:20 Dose: 100 mls/hr Documented by: [id number] Imaging Data Radiologist's Impression: Head CT 03/12/21 11:05 CT SCAN OF THE BRAIN WITHOUT IV CONTRAST CLINICAL HISTORY: Change in mental status. COMPARISON STUDY: CT of the brain dated 01/31/2021 TECHNIQUE: Unenhanced axial CT scan of the brain is performed from the vertex to the skull base. A dose lowering technique was utilized adhering to the principles of ALARA. CT DOSE: 1156.94 mGy.cm FINDINGS: Brain parenchyma: There are age-related involutional changes noting mild to moderate subcortical and periventricular microangiopathic change. There is no hemorrhage, mass effect, or evidence of acute territorial ischemia by CT criteri a. Donaldson-white matter differentiation is preserved. No extra-axial fluid collection is seen. Ventricles, sulci, cisterns: Prominent secondary to involutional change. Intracranial vasculature: There is atherosclerotic calcification of the cavernous carotid and vertebral arteries. Calvarium: Unremarkable. Sinuses and mastoids: The paranasal sinuses are clear. The mastoid air cells are well pneumatized. Orbits: The bony orbits are grossly intact. There are bilateral ocular lens implants. IMPRESSION: There is no hemorrhage, mass effect, or evidence of acute territorial ischemia by CT criteria. ACT 112: Negative or not required by law. Electronically signed by: Johnny Conroy M.D. 03/12/2021 2:04 PM Chest X-Ray 03/12/21 11:40 XR chest 1V portable CLINICAL HISTORY: Altered mental status. COMPARISON STUDY: Chest radiograph January 31, 2021. FINDINGS: Lung volumes are normal. Lungs are clear. There is no pneumothorax or pleural effusion. Cardiac size is normal. Mediastinal contours are normal. There is no evidence for pulmonary edema. Median sternotomy wires and mediastinal surgical clips are noted. Patient is mildly rotated. IMPRESSION: No acute cardiopulmonary findings. ACT 112: Negative or not required by law. Electronically signed by: Shamir Shi M.D. 03/12/2021 12:09 PM Abdomen/Pelvis CT 03/12/21 12:16 CT SCAN OF THE ABDOMEN AND PELVIS WITHOUT IV CONTRAST CLINICAL HISTORY: Generalized abdominal pain. Change in mental status. COMPARISON STUDY: Abdominal CT dated 02/16/2021. TECHNIQUE: CT scan of the abdomen and pelvis is performed from the lung bases to the proximal femora. Images are reviewed in the axial, sagittal, and coronal planes. IV contrast was not administered for this examination. Note that the examination is suboptimal without oral and IV contrast. A dose lowering techn ique was utilized adhering to the principles of ALARA. Examination is compromised by motion artifact, as well as by streak artifact from the arms which could not be elevated above the abdomen. FINDINGS: Lung bases: Midline sternotomy wires are noted. The heart is mildly enlarged and without pericardial effusion. The coronary arteries are densely calcified. The lung bases are clear. A small hiatal hernia is noted Liver: The unenhanced liver is normal in size, contour, and attenuation. There is no intrahepatic biliary ductal dilatation. Gallbladder: Distended but otherwise normal in appearance. Spleen: Normal in size and attenuation. Pancreas: Unremarkable. Adrenal glands: Unremarkable. Kidneys: There is asymmetric cortical atrophy of the left kidney as compared to the right with severe left-sided hydronephrosis. The left ureter is normal in caliber, and this is unchanged from previous. An obstructing urothelial lesion is suggested just below the left ureter pelvic junction on image #229. This measures approximately 2.4 cm in length. No renal calculi are identified and there is no right-sided hydronephrosis. There is no evidence of contour deforming renal mass lesion. Abdominal vasculature: The abdominal aorta is normal in course and caliber noting mild atherosclerotic calcification. Bowel: There is rectosigmoid fecal impaction and moderate constipation. No bowel obstruction is seen. There is mild colonic diverticulosis without CT evidence of acute diverticulitis. The cecum is located in the left lower quadrant. The appendix is well-visualized and normal. Peritoneum: There is no intraperitoneal free air or abdominal ascites. Lymphadenopathy: None. Pelvic viscera: The prostate gland is enlarged and heterogeneous with brachytherapy implants in place. The bladder is partially decompressed around a Schaffer catheter and appears circumferentially thick walled. There is mild pericystic infiltration. A large posteriorly oriented bladder diverticulum measures up to 4 cm contains internal calculi. Skeletal structures: The skeletal structures are osteopenic. There is mild to moderate lumbosacral spondylosis. No lytic or blastic lesions are seen. IMPRESSION: 1. Suboptimal examination without oral and IV contrast. The Examination is also significantly degraded by streak and motion artifact. 2. There is rectosigmoid fecal impaction and moderate constipation. No bowel obstruction is seen. 3. Again seen is severe left hydronephrosis, likely related to an obstructing urothelial mass just below the ureteropelvic junction. This has not appreciably changed as compared to 02/16/2021. Neoplasm remains the diagnosis of exclusion. 4. The bladder is decompressed around a Schaffer catheter and appears thick walled. There is pericystic infiltration. Correlate with clinical findings and urinalysis. 5. Additional findings as above. ACT 112: Negative or not required by law. Electronically signed by: Johnny Conroy M.D. 03/12/2021 2:13 PM Discharge Plan Visit Data Chief Complaint: Catheter Replacement Stated Complaint: CANNOT GET CATHETER IN, DEHYDRATED, WEAK ED Provider: Jessee Catherine Discharge Problem: ABEBA (acute kidney injury), Acute UTI, Leukocytosis, Hydronephrosis, COVID-19 Forms Stand Alone Forms: My [facility] [employer] Prescriptions Prescriptions: No Action metoprolol succinate [Toprol XL] 25 mg tablet extended release 24 hr 12.5 mg PO QAM RF: 0 tamsulosin 0.4 mg capsule 0.4 mg PO DAILY Qty: 90 RF: 3 lisinopril 20 mg Tablet 20 mg PO BID RF: 0 nitroglycerin 0.4 mg Tablet, Sublingual 0.4 mg sublingual DIRECTED PRN (Reason: Chest Pain) RF: 0 atorvastatin 80 mg Tablet 80 mg PO QAM RF: 0 amlodipine 2.5 mg Tablet 2.5 mg PO QAM RF: 0 isosorbide mononitrate 30 mg Tablet Extended Release 24 Hr 30 mg PO QAM RF: 0 quetiapine 25 mg tablet 12.5 mg PO DAILY PRN (Reason: Agitation) RF: 0 oxycodone 5 mg Tablet 5 mg PO Q6H PRN (Reason: Pain) RF: 0 multivitamin Tablet 1 tab PO QAM RF: 0 Referrals Referrals: Josseline Veras MD [Primary Care Provider] -
[2021-03-12 11:22] LABS: Basophils # (auto) 0.02 K/uL (0-0.2); Basophils % (auto) 0.1 %; Eosinophils # (auto) 0.01 K/uL (0-0.5); Eosinophils % (auto) 0.1 %; Hematocrit (blood only) 52.1 % (42-52); Hemoglobin 17.9 g/dL (14.0-18.0); Immature Granulocytes # (auto) 0.04 K/uL (0.00-0.02); Immature Granulocytes % (auto) 0.2 %; Lymphocytes # (auto) 1.28 K/uL (1.2-3.4); Lymphocytes % (auto) 7.4 %; Mean Corpuscular Hemoglobin 32.4 pg (25-34); Mean Corpuscular Hgb Conc 34.4 g/dL (32-36); Mean Corpuscular Volume 94.4 fL (80-100); Mean Platelet Volume 10.4 fL (7.4-10.4); Monocytes # (auto) 0.49 K/uL (0.11-0.59); Monocytes % (auto) 2.8 %; Neutrophils % (auto) 89.4 %; Platelet Count 294 K/uL (130-400); RDW Coefficient of Variation 13.4 % (11.5-14.5); RDW Standard Deviation 46.1 fL (36.4-46.3); Red Blood Count 5.52 M/uL (4.7-6.1); White Blood Count 17.34 K/uL (4.8-10.8)
[2021-03-12] MEDS ORDERED: LORazepam 0.5 MG/1 ML VIAL IV PRN (11:40)
[2021-03-12 11:49] LABS: Alanine Aminotransferase 18 U/L (7-52); Alkaline Phosphatase 149 U/L (34-104); Anion Gap 14 (3-11); Aspartate Aminotransferase 31 U/L (13-39); BUN Creatinine Ratio 28.9 (10-20); Bilirubin,Total 0.9 mg/dl (0.2-1.0); Blood Urea Nitrogen 59 mg/dl (6-23); Calcium 10.2 mg/dl (8.5-10.1); Carbon Dioxide 20 mmol/L (21-32); Chloride 108 mmol/L (98-107); Est GFR (African American) 35.6 ml/min; Est GFR (Non-African American) 30.7 ml/min; Globulin 4.2 gm/dl (2.5-4.0); Glucose 140 mg/dl (70-99(Fasting)); Lipase 116 U/L (11-82); Potassium 4.9 mmol/L (3.5-5.1); Sodium 142 mmol/L (136-145); Total Protein 8.2 gm/dl (6.0-8.3)
--- NOTE | 2021-03-12 12:11 | XRay Report ---
XR chest 1V portable CLINICAL HISTORY: Altered mental status. COMPARISON STUDY: Chest radiograph January 31, 2021. FINDINGS: Lung volumes are normal. Lungs are clear. There is no pneumothorax or pleural effusion. Car diac size is normal. Mediastinal contours are normal. There is no evidence for pulmonary edema. Media n sternotomy wires and mediastinal surgical clips are noted. Patient is mildly rotated. IMPRESSION: No acute cardiopulmonary findings. ACT 112: Negative or not required by law. Electronically signed by: Shamir Shi M.D. 03/12/2021 12:09 PM
[2021-03-12] MEDS ORDERED: cefTRIAXone SODIUM 1,000 MG/50 ML BAG IV STA (12:15)
[2021-03-12 13:36] LABS: Appearance Urine Cloudy (Clear); Bacteria Urine Automated 1+ (Negative); Blood Urine 3+ (Negative); Color Urine Dark Yellow; Glucose Urine UA Negative (Negative); Ketones Urine Trace (Negative); Leukocyte Esterase Urine 1+ (Negative); Nitrite Urine Positive (Negative); Protein Urine 3+ (Negative); Specific Gravity Urine 1.025 (1.000-1.030); Urobilinogen Urine Negative (Negative); WBC Urine Automated >30 /hpf (0-5); pH Urine 5.5 (4.5-7.5)
[2021-03-12 13:39] LABS: Bilirubin Urine 1+ (Negative)
[2021-03-12 14:05] LABS: RBC Urine Automated >30 /hpf (0-4)
--- NOTE | 2021-03-12 14:05 | CT Scan Report ---
CT SCAN OF THE BRAIN WITHOUT IV CONTRAST CLINICAL HISTORY: Change in mental status. COMPARISON STUDY: CT of the brain dated 01/31/2021 TECHNIQUE: Unenhanced axial CT scan of the brain is performed from the vertex to the skull base. A do se lowering technique was utilized adhering to the principles of ALARA. CT DOSE: 1156.94 mGy.cm FINDINGS: Brain parenchyma: There are age-related involutional changes noting mild to moderate subcortical and periventricular microangiopathic change. There is no hemorrhage, mass effect, or evidence of acute t erritorial ischemia by CT criteria. Donaldson-white matter differentiation is preserved. No extra-axial fl uid collection is seen. Ventricles, sulci, cisterns: Prominent secondary to involutional change. Intracranial vasculature: There is atherosclerotic calcification of the cavernous carotid and vertebr al arteries. Calvarium: Unremarkable. Sinuses and mastoids: The paranasal sinuses are clear. The mastoid air cells are well pneumatized. Orbits: The bony orbits are grossly intact. There are bilateral ocular lens implants. IMPRESSION: There is no hemorrhage, mass effect, or evidence of acute territorial ischemia by CT raisa bartlett. ACT 112: Negative or not required by law. Electronically signed by: Johnny Conroy M.D. 03/12/2021 2:04 PM
--- NOTE | 2021-03-12 14:15 | CT Scan Report ---
CT SCAN OF THE ABDOMEN AND PELVIS WITHOUT IV CONTRAST CLINICAL HISTORY: Generalized abdominal pain. Change in mental status. COMPARISON STUDY: Abdominal CT dated 02/16/2021. TECHNIQUE: CT scan of the abdomen and pelvis is performed from the lung bases to the proximal femora. Images are reviewed in the axial, sagittal, and coronal planes. IV contrast was not administered for this examination. Note that the examination is suboptimal without oral and IV contrast. A dose lower ing technique was utilized adhering to the principles of ALARA. Examination is compromised by motion artifact, as well as by streak artifact from the arms which could not be elevated above the abdomen. FINDINGS: Lung bases: Midline sternotomy wires are noted. The heart is mildly enlarged and without pericardial effusion. The coronary arteries are densely calcified. The lung bases are clear. A small hiatal herni a is noted Liver: The unenhanced liver is normal in size, contour, and attenuation. There is no intrahepatic dustin iary ductal dilatation. Gallbladder: Distended but otherwise normal in appearance. Spleen: Normal in size and attenuation. Pancreas: Unremarkable. Adrenal glands: Unremarkable. Kidneys: There is asymmetric cortical atrophy of the left kidney as compared to the right with severe left-sided hydronephrosis. The left ureter is normal in caliber, and this is unchanged from previous . An obstructing urothelial lesion is suggested just below the left ureter pelvic junction on image # 229. This measures approximately 2.4 cm in length. No renal calculi are identified and there is no ri ght-sided hydronephrosis. There is no evidence of contour deforming renal mass lesion. Abdominal vasculature: The abdominal aorta is normal in course and caliber noting mild atheroscleroti c calcification. Bowel: There is rectosigmoid fecal impaction and moderate constipation. No bowel obstruction is seen. There is mild colonic diverticulosis without CT evidence of acute diverticulitis. The cecum is locat ed in the left lower quadrant. The appendix is well-visualized and normal. Peritoneum: There is no intraperitoneal free air or abdominal ascites. Lymphadenopathy: None. Pelvic viscera: The prostate gland is enlarged and heterogeneous with brachytherapy implants in place . The bladder is partially decompressed around a Schaffer catheter and appears circumferentially thick w alled. There is mild pericystic infiltration. A large posteriorly oriented bladder diverticulum measu res up to 4 cm contains internal calculi. Skeletal structures: The skeletal structures are osteopenic. There is mild to moderate lumbosacral sp ondylosis. No lytic or blastic lesions are seen. IMPRESSION: 1. Suboptimal examination without oral and IV contrast. The Examination is also significantly degrade d by streak and motion artifact. 2. There is rectosigmoid fecal impaction and moderate constipation. No bowel obstruction is seen. 3. Again seen is severe left hydronephrosis, likely related to an obstructing urothelial mass just be low the ureteropelvic junction. This has not appreciably changed as compared to 02/16/2021. Neoplasm re marco the diagnosis of exclusion. 4. The bladder is decompressed around a Schaffer catheter and appears thick walled. There is pericystic infiltration. Correlate with clinical findings and urinalysis. 5. Additional findings as above. ACT 112: Negative or not required by law. Electronically signed by: Johnny Conroy M.D. 03/12/2021 2:13 PM
--- NOTE | 2021-03-12 14:54 | History & Physical Report ---
Date of Service March 12, 2021 Assessment & Plan (1) Metabolic encephalopathy: Plan: Dementia Patient is 76 y/o M with PMH dementia, HTN, dyslipidemia, CAD s/p stents, CABG, JANUARY, h/o prostate cancer s/p seed implant, CKD III presented to ER for altered mental status, decreased appetite for 2 weeks. In ER patient afebrile, no hypoxia. WBC: 17, BUN: 59, Cr: 2.0, UA: 1+leuk esterase, >30WBC, 1+bacteria, +COVID-[address] Head and CXR are unremarkable. Likely metabolic encephalopathy with dementia One-to-one observation as needed Try to avoid benzo sedatives Continue Seroquel as needed Monitor for delirium Frequent reorientation Treatment as below Hydronephrosis: Bladder outlet obstruction Possible UTI Obstructing urothelial lesion UA: 1+ leuk esterase,> 30 WBC,> 1+o bacteria. CT ABD/PELVIS: 1. Suboptimal examination without oral and IV contrast. The Examination is also significantly degraded by streak and motion artifact. 2. There is rectosigmoid fecal impaction and moderate constipation. No bowel obstruction is seen. 3. Again seen is severe left hydronephrosis, likely related to an obstructing urothelial mass just below the ureteropelvic junction. This has not appreciably changed as compared to 02/16/2021. Neoplasm remains the diagnosis of exclusion. 4. The bladder is decompressed around a Wright catheter and appears thick walled. There is pericystic infiltration. Correlate with clinical findings and urinalysis. 5. Additional findings as above. In ER given Rocephin, 1L NSS Wright was placed in ER Continue Wright cath Continue Rocephin Recent treatment with Bactrim on 02/23/21 for possible UTI Urine culture pending Urology consult ABEBA on CKD III Cr: 2.0. Baseline~1.5 Likely secondary to dehydration and recent Bactrim use IVF Hold lisinopril. Avoid Bactrim Monitor renal functions, avoid nephrotoxic agents when possible If no improvement consider nephrology consult COVID-19 Positive +COVID-19 NAAT No hypoxia, no pneumonia noted on CXR Likely decreased appetite past 2 weeks secondary to COVID infection. +Household contacts 2.5-3 weeks ago. Obtain CRP, procalcitonin in am CAD (coronary artery disease): S/P Stents, CABG Aspirin on hold for upcoming procedure. Continue atorvastatin, isosorbide, metoprolol succinate Hypertension: Hold amlodipine, lisinopril as mildly hypotensive in ER Continue metoprolol succinate with holding parameters Adenocarcinoma of prostate: S/P seed implant JANUARY (obstructive sleep apnea): Previously used BiPAP and CPAP. No longer tolerant DVT Prophylaxis Heparin SQ Full Code as per discussion with pt's daughter, Olga, however would not want prolonged if poor prognosis. Follows with Dr Veras for routine care Pt was seen and care coordinated with Dr Murcia. See addendum History of Present Illness Chief Complaint: AMS Primary Care Provider: Josseline Veras MD Patient is 76 y/o M with PMH dementia, HTN, dyslipidemia, CAD s/p stents, CABG, JANUARY, h/o prostate cancer s/p seed implant, CKD III presented to ER for altered mental status. History obtained from patient's daughter, Olga secondary to patient's current status. Patient lives with other daughter who cares for him and they have caregivers assisting. Reports patient baseline is oriented to person only and often has agitation and aggressive tendencies. With history hospitalization 01/31/2021-02/04/2021 from metabolic encephalopathy, urinary retention. Patient's daughter reports since being home patient has had continued confusion. She states the past 2 weeks he has had poor appetite with decreased eating and drinking. On 02/23/2021 had appointment with [facility] urology and was started on Bactrim x14 days for possible UTI. She reports positive COVID contacts in household members 2 weeks ago. Reports home nurse was at house today to remove and replace Wright catheter. Was able to remove however was not able to replace secondary to patient being agitated, so daughter brought patient to ER. Reports patient had BM 2 days ago. Denies any known vomiting, cough, noted shortness of breath, fever, melena, hematochezia, extremity edema, hematuria, reported CP. Patient received 2 COVID-19 vaccinations last being around 04/2020. Has not received booster. In ER patient afebrile, no hypoxia. WBC: 17, BUN: 59, Cr: 2.0, UA: 1+leuk esterase, >30WBC, 1+bacteria, +COVID-[address] Head and CXR are unremarkable. CT ABD/Pelvis: rectosigmoid fecal impaction and moderate constipation. No bowel obstruction is seen.. Again seen is severe left hydronephrosis, likely related to an obstructing urothelial mass just below the ureteropelvic junction. This has not appreciably changed as compared to 02/16/2021. Neoplasm remains the diagnosis of exclusion.. The bladder is decompressed around a Wright catheter and appears thick walled. There is pericystic infiltration Allergies Allergy/AdvReac Type Severity Reaction Status Date / Time No Known Allergies Allergy Verified 03/12/21 12:04 Home Medications Medication Instructions Recorded Confirmed Type amlodipine 2.5 mg tablet 2.5 mg PO QAM 08/28/18 03/12/21 History atorvastatin 80 mg tablet 80 mg PO QAM 08/28/18 03/12/21 History isosorbide mononitrate 30 mg 30 mg PO QAM 08/28/18 03/12/21 History tablet,extended release 24 hr lisinopril 20 mg tablet 20 mg PO BID 08/28/18 03/12/21 History nitroglycerin 0.4 mg sublingual 0.4 mg SUBLINGUAL DIRECTED PRN 08/28/18 03/12/21 History tablet metoprolol succinate 25 mg 12.5 mg PO QAM tab 10/02/18 03/12/21 History tablet,extended release 24 hr (Toprol XL) multivitamin 1 tab PO QAM 01/31/21 03/12/21 History tamsulosin 0.4 mg capsule 0.4 mg PO DAILY #90 cap 02/23/21 03/12/21 Rx oxycodone 5 mg tablet 5 mg PO Q6H PRN 03/12/21 03/12/21 History quetiapine 25 mg tablet 12.5 mg PO DAILY PRN 03/12/21 03/12/21 History Past Med/Surg History Medical History Adenocarcinoma of prostate (12/28/12) "Rising PSA, pretreatment PSA 5.05 Status post ultrasound-guided biopsies number the 2012 Adenocarcinoma with [place] 3+3 Lupron injection 03/27/2013 to downsize the prostate Status post prostate seed implant 03/04/2014 as monotherapy. He received 115 Gy, 86 seeds were placed" Anxiety WITH ANY CHANGE IN ROUTINE Arthritis CAD (coronary artery disease) "s/p CABG 1998" CKD (chronic kidney disease), stage III Dementia History of kidney stones Hyperlipidemia Hypertension Myocardial Infarction LAST EVENT 2014>FOLLOWED BY [facility] JANUARY (obstructive sleep apnea) no device Surgical History H/O colonoscopy with polypectomy H/O prostate biopsy History of cataract surgery RT/LEFT History of lumbar surgery X 2 (NO HARDWARE) History of tooth extraction S/P CABG (coronary artery bypass graft) "x2 in 1998" AT [facility] S/P cardiac catheterization "in setting of NSTEMI 06/2014- POBA to OM" AT [facility] Family History Father Heart disease Brother Heart disease Hypertension Mother Heart disease Other No family history of adverse response to anesthesia Social History Smoking Status: Former smoker Tobacco Type: Cigarettes Second Hand Exposure: No; Hx Alcohol Use: Yes Hx Substance Use: No Preferred Language: Nepali Communication Ability: Impaired 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[employer] Loading Required: No Beliefs That Will Affect Care: None Current Living Situation: Family Current Living Situation Comment: LIVES WITH DAUGHTER AND HER FAMILY (HAS CAREGIVER 5 DAYS PER WEEK) Feels Safe at Home: Yes Assistive Devices: Glasses Review of Systems Review of Systems: All systems reviewed & are unremarkable except as noted in HPI & below Physical Exam Physical Exam: General: no distress, thin elderly male Head: normocephalic, atraumatic Eyes: conjunctiva non-injected, anicteric ENT: normal inspection external ears, nose, mucous membranes dry Neck: supple, trachea midline Lungs: clear, no respiratory distress, no wheezing/rhonchi/rales CV: RRR, no pretibial edema Abd: normal BS, soft, no apparent tenderness Ext: no cyanosis, no calf tenderness Neuro: Alert not oriented, lethargic, is pulling at pulse ox, is able to be redirected Skin: warm, dry, ecchymosis left hand Results & Data Results & Data ([facility]) Vital Signs (Past 12 Hours) Vital Signs Temp Pulse Pulse Resp BP BP Pulse Ox 03/12/21 12:00 73 18 92/73 L 95 03/12/21 10:44 36.4 C L 92 H 20 109/80 97 Laboratory Results Short CBC 03/12/21 Range/Units 11:10 WBC 17.34 H (4.8-10.8) K/uL Hgb 17.9 (14.0-18.0) g/dL Hct 52.1 H (42-52) % Plt Count 294 (130-400) K/uL BMP 03/12/21 11:10 Sodium 142 Potassium 4.9 Chloride 108 H Carbon Dioxide 20 L BUN 59 H Creatinine 2.04 H Glucose 140 H Calcium 10.2 H Liver Function 03/12/21 Range/Units 11:10 Total Bilirubin 0.9 (0.2-1.0) mg/dl AST 31 (13-39) U/L ALT 18 (7-52) U/L Alkaline Phosphatase 149 H (34-104) U/L Albumin 4.0 (3.4-5.0) gm/dl Urine 03/12/21 Range/Units Unknown Urine Color Dark Yellow Urine Appearance Cloudy A (Clear) Urine pH 5.5 (4.5-7.5) Ur Specific [place] 1.025 (1.000-1.030) Urine Protein 3+ H (Negative) Urine Glucose (UA) Negative (Negative) Diagnostic Findings Head CT 03/12/21 11:05 CT SCAN OF THE BRAIN WITHOUT IV CONTRAST CLINICAL HISTORY: Change in mental status. COMPARISON STUDY: CT of the brain dated 01/31/2021 TECHNIQUE: Unenhanced axial CT scan of the brain is performed from the vertex to the skull base. A dose lowering technique was utilized adhering to the [facility] DOSE: 1156.94 mGy.cm FINDINGS: Brain parenchyma: There are age-related involutional changes noting mild to moderate subcortical and periventricular microangiopathic change. There is no hemorrhage, mass effect, or evidence of acute territorial ischemia by CT criteria. Donaldson-white matter differentiation is preserved. No extra-axial fluid collection is seen. Ventricles, sulci, cisterns: Prominent secondary to involutional change. Intracranial vasculature: There is atherosclerotic calcification of the cavernous carotid and vertebral arteries. Calvarium: Unremarkable. Sinuses and mastoids: The paranasal sinuses are clear. The mastoid air cells are well pneumatized. Orbits: The bony orbits are grossly intact. There are bilateral ocular lens implants. IMPRESSION: There is no hemorrhage, mass effect, or evidence of acute territorial ischemia by CT criteria. ACT 112: Negative or not required by law. Electronically signed by: Johnny Conroy M.D. 03/12/2021 2:04 PM Chest X-Ray 03/12/21 11:40 XR chest 1V portable CLINICAL HISTORY: Altered mental status. COMPARISON STUDY: Chest radiograph January 31, 2021. FINDINGS: Lung volumes are normal. Lungs are clear. There is no pneumothorax or pleural effusion. Cardiac size is normal. Mediastinal contours are normal. There is no evidence for pulmonary edema. Median sternotomy wires and mediastinal surgical clips are noted. Patient is mildly rotated. IMPRESSION: No acute cardiopulmonary findings. ACT 112: Negative or not required by law. Electronically signed by: Shamir Shi M.D. 03/12/2021 12:09 PM Abdomen/Pelvis CT 03/12/21 12:16 CT SCAN OF THE ABDOMEN AND PELVIS WITHOUT IV CONTRAST CLINICAL HISTORY: Generalized abdominal pain. Change in mental status. COMPARISON STUDY: Abdominal CT dated 02/16/2021. TECHNIQUE: CT scan of the abdomen and pelvis is performed from the lung bases to the proximal femora. Images are reviewed in the axial, sagittal, and coronal planes. IV contrast was not administered for this examination. Note that the examination is suboptimal without oral and IV contrast. A dose lowering technique was utilized adhering to the principles of ALARA. Examination is compromised by motion artifact, as well as by streak artifact from the arms which could not be elevated above the abdomen. FINDINGS: Lung bases: Midline sternotomy wires are noted. The heart is mildly enlarged and without pericardial effusion. The coronary arteries are densely calcified. The lung bases are clear. A small hiatal hernia is noted Liver: The unenhanced liver is normal in size, contour, and attenuation. There is no intrahepatic biliary ductal dilatation. Gallbladder: Distended but otherwise normal in appearance. Spleen: Normal in size and attenuation. Pancreas: Unremarkable. Adrenal glands: Unremarkable. Kidneys: There is asymmetric cortical atrophy of the left kidney as compared to the right with severe left-sided hydronephrosis. The left ureter is normal in caliber, and this is unchanged from previous. An obstructing urothelial lesion is suggested just below the left ureter pelvic junction on image #229. This measures approximately 2.4 cm in length. No renal calculi are identified and there is no right-sided hydronephrosis. There is no evidence of contour deformin g renal mass lesion. Abdominal vasculature: The abdominal aorta is normal in course and caliber noting mild atherosclerotic calcification. Bowel: There is rectosigmoid fecal impaction and moderate constipation. No bowel obstruction is seen. There is mild colonic diverticulosis without CT evidence of acute diverticulitis. The cecum is located in the left lower quadrant. The appendix is well-visualized and normal. Peritoneum: There is no intraperitoneal free air or abdominal ascites. Lymphadenopathy: None. Pelvic viscera: The prostate gland is enlarged and heterogeneous with brachythe rapy implants in place. The bladder is partially decompressed around a Wright catheter and appears circumferentially thick walled. There is mild pericystic infiltration. A large posteriorly oriented bladder diverticulum measures up to 4 cm contains internal calculi. Skeletal structures: The skeletal structures are osteopenic. There is mild to moderate lumbosacral spondylosis. No lytic or blastic lesions are seen. IMPRESSION: 1. Suboptimal examination without oral and IV contrast. The Examination is also significantly degraded by streak and motion artifact. 2. There is rectosigmoid fecal impaction and moderate constipation. No bowel obstruction is seen. 3. Again seen is severe left hydronephrosis, likely related to an obstructing urothelial mass just below the ureteropelvic junction. This has not appreciably changed as compared to 02/16/2021. Neoplasm remains the diagnosis of exclusion. 4. The bladder is decompressed around a Wright catheter and appears thick walled. There is pericystic infiltration. Correlate with clinical findings and urinalysis. 5. Additional findings as above. ACT 112: Negative or not required by law. Electronically signed by: Johnny Conroy M.D. 03/12/2021 2:13 PM Supervising Physician Co-Signing Physician Notes Care coordinated with Melany Cruz PA-C. Agree with above note. Patient seen and examined. Please refer to her notes for full details. Vital signs reviewed. Physical exam: General exam: Drowsy. Not in acute distress. CVS: S1 and S2 heard, regular rate and rhythm, no murmurs. RS: Clear to auscultation, no wheezing or crackles. ABD: Soft, bowel sounds present, , no distention. SENIOR PORTFOLIO ANALYST: Drowsy EXT: No edema, no erythema. Labs: Reviewed. Assessment and plan: &^M with multiple medical problems as mentioned above who was recently in hospital for urinary retention and treated for uti s/p wright catheter and following with Urology for left hydronephrosis and possible left ureteral lesions. Also was treated for with bactrim by urology recently out patient. Today supposedly his fley has to be changed and patient was confused and diffcult to replace. Also as per daughter he is not eating and drinking since last two weeks. getting very difficult to feed him. Wright not draining much urine. He has baseline dementia but knows his surrounding but now completely confused. Thats the reason he was brought to ER. In ER he was found to have Abeba and covid positive. As per daughter he did not received booster dose. But he was exposed to covid by family members couple of weeks ago. ABEBA iv fluids avoid nephrotoxic agents follow labs in am Urinary retention UTI wright replaced in ER Follows with urology and suppossedly follow next week will consult urology in am Rocephin follow cx. COVID seems asymtomatic currently probably got infected couple of weeks ago? cxr ok continue to monitor follow inflammatory markers. JANUARY used to be on bipap before but currently seems not not tolerating to use oxygen while sleeping. Other diagnosis and plan of care as per Melany Cruz PA-C. Tan schwab MD.
[2021-03-12] MEDS ORDERED: bisacodyL 10 MG SUPP PR STA (15:58)
[2021-03-12] MEDS ORDERED: ACETAMINOPHEN 325 MG TAB PO PRN (17:56)
[2021-03-12] MEDS ORDERED: QUEtiapine FUMARATE 25 MG TABLET PO PRN (17:56)
[2021-03-12] MEDS ORDERED: NITROGLYCERIN SL 0.4 MG/TAB TAB SL PRN (17:56)
[2021-03-12] MEDS ORDERED: PATIENT'S HEIGHT AND/OR WEIGHT NEEDED SCH ×2 (19:00)
[2021-03-12] MEDS: POLYETHYLENE (MIRALAX) 17 GM PACK PO SCH (19:15)
[2021-03-12] MEDS: SODIUM CHLORIDE 0.9% 1000ML 1,000 ML IV SCH (19:32)
--- NOTE | 2021-03-12 19:54 | Urology Consultation ---
Date of Consultation March 12, 2021 Assessment & Plan (1) Hydronephrosis: Patient has been admitted by the hospitalist service. Recommend proceeding as follows: Patient has been placed on Rocephin. Recommend continue antibiotics until urine culture is back The patient is scheduled for cystoscopy on 03/17/2021 secondary to ureteral mass which may be contributing to urinary tract infection. Ideally we would like to hold off on cystoscopy in light of the patient's Covid test but if he becomes hemodynamically unstable we may need to intervene earlier. We will therefore make the patient n.p.o. after midnight in the event cystoscopy is needed tomorrow I discussed the above plan with the patient's daughter via phone and she is in agreement. Remainder of plan as directed by primary service History of Present Illness Reason for Consultation: Left ureteral mass Attending Physician: Tan Murcia MD History of Present Illness Is a 76-year-old male with a history of underlying dementia who can provide no meaningful history. History was obtained from review of records as well as discussion with emergency department staff and the patient's daughter via phone.. Daughter reports that the patient has a chronic indwelling Schaffer catheter that was due to be exchanged today. She notes visiting nurses came to the house to perform this task and they removed a pre-existing Schaffer catheter but due to the patient not being cooperative they are unable to place a new catheter and was therefore referred to the emergency department. The patient did have a new Schaffer catheter placed in the emergency department. The patient was hospitalized from 01/31/2021 through 02/04/2021 secondary to metabolic encephalopathy from urinary retention. Since patient was discharged the patient has reportedly had more confusion and has had a decreased appetite. Patient was seen by [facility] urology on 02/23/2021 and was placed on a 14-day course of Bactrim for possible UTI. There have been no reports of any nausea vomiting or fevers. There were reports that the patient did have positive Covid contacts approximately 2 weeks ago. While in the emergency department patient did have labs and imaging which independent reviewed. A CBC revealed a white blood cell count was 17.3. His hemoglobin was within the normal range. Platelet count was noted to be normal as well. A chemistry profile showed sodium and potassium were both normal. His BUN and creatinine were elevated at fifty-nine and 2.0 which were elevated compared to prior values. A urinalysis was performed that showed cloudy appearing urine with positive nitrites and 1+ leukocyte esterase. There were greater than thirty white blood cells per high-power field and this was also positive for bacteria. A Covid test was performed and was noted to be positive. A chest x-ray was noted to be negative for pneumonia. CT scan of the head showed no acute intracranial process. CT scan of the showed severe left hydronephrosis that was similar when compared to CT scan on 02/16/2021. There is an obstructing ureteral mass noted. Patient's records were reviewed and he was seen by Dr. Andujar on 02/23/2021. Due to the left-sided ureteral mass Dr. Andujar discussed potential treatment options for the patient and they have elected to perform a cystoscopy on 03/17/2020. At the time of my interview the patient was noted to be confused and hemodynamically stable but he was in no distress. Allergies Allergy/AdvReac Type Severity Reaction Status Date / Time No Known Allergies Allergy Verified 03/12/21 12:04 Home Medications Medication Instructions Recorded Confirmed Type amlodipine 2.5 mg tablet 2.5 mg PO QAM 08/28/18 03/12/21 History atorvastatin 80 mg tablet 80 mg PO QAM 08/28/18 03/12/21 History isosorbide mononitrate 30 mg 30 mg PO QAM 08/28/18 03/12/21 History tablet,extended release 24 hr lisinopril 20 mg tablet 20 mg PO BID 08/28/18 03/12/21 History nitroglycerin 0.4 mg sublingual 0.4 mg SUBLINGUAL DIRECTED PRN 08/28/18 03/12/21 History tablet metoprolol succinate 25 mg 12.5 mg PO QAM tab 10/02/18 03/12/21 History tablet,extended release 24 hr (Toprol XL) multivitamin 1 tab PO QAM 01/31/21 03/12/21 History tamsulosin 0.4 mg capsule 0.4 mg PO DAILY #90 cap 02/23/21 03/12/21 Rx oxycodone 5 mg tablet 5 mg PO Q6H PRN 03/12/21 03/12/21 History quetiapine 25 mg tablet 12.5 mg PO DAILY PRN 03/12/21 03/12/21 History Patient History Medical History Adenocarcinoma of prostate (12/28/12) "Rising PSA, pretreatment PSA 5.05 Status post ultrasound-guided biopsies number the 2012 Adenocarcinoma with [place] 3+3 Lupron injection 03/27/2013 to downsize the prostate Status post prostate seed implant 03/04/2014 as monotherapy. He received 115 Gy, 86 seeds were placed" Anxiety WITH ANY CHANGE IN ROUTINE Arthritis CAD (coronary artery disease) "s/p CABG 1998" CKD (chronic kidney disease), stage III Dementia History of kidney stones Hyperlipidemia Hypertension Myocardial Infarction LAST EVENT 2014>FOLLOWED BY [facility] JANUARY (obstructive sleep apnea) no device Surgical History H/O colonoscopy with polypectomy H/O prostate biopsy History of cataract surgery RT/LEFT History of lumbar surgery X 2 (NO HARDWARE) History of tooth extraction S/P CABG (coronary artery bypass graft) "x2 in 1998" AT [facility] S/P cardiac catheterization "in setting of NSTEMI 06/2014- POBA to OM" AT [facility] Family History Father Heart disease Brother Heart disease Hypertension Mother Heart disease Other No family history of adverse response to anesthesia Social History Smoking Status: Former smoker Tobacco Type: Cigarettes Second Hand Exposure: No; Hx Alcohol Use: Yes Hx Substance Use: No Preferred Language: [place] Communication Ability: Impaired Communication Ability Comment: pt is very uncooperative and combative at the time of admission [employer] Consultant Required: No Beliefs That Will Affect Care: None Current Living Situation: Other Current Living Situation Comment: home w/ dtr Feels Safe at Home: Yes Assistive Devices: Glasses Review of Systems Review of Systems: Unobtainable due to cognitive status Physical Exam Constitutional: well developed and well nourished; no acute distress Eyes: no conjunctival abnormality ENMT: Ears: no external ear abnormality Neck: trachea midline Respiratory: normal respiratory effort, lungs clear to auscultation Cardiovascular: Rate/Rhythm: regular rate and regular rhythm Gastrointestinal (Abdomen): Soft, nontender Musculoskeletal: No gross orthopedic abnormalities Skin: no rashes Neurologic: moves all extremities Psychiatric: Alert only to person Genitourinary: No CVA tenderness with percussion. Schaffer catheter noted to be in place draining clear urine. Results & Data ([facility]) Vital Signs (Past 12 Hours) Vital Signs Temp Pulse Pulse Resp BP BP Pulse Ox 03/12/21 17:22 36.8 C 88 18 138/80 93 03/12/21 16:00 77 16 116/83 94 03/12/21 14:00 84 18 116/77 96 03/12/21 12:00 73 18 92/73 L 95 03/12/21 10:44 36.4 C L 92 H 20 109/80 97 PG Care Time/CCT Total # of Minutes Spent Total Time Spent with Patient: Total time spent is greater than 50% in coordination of care (as documented) at patient's floor/unit and/or counseling patient: Coding Level of Care Code 42157 Inpt Consult Level 5 Diagnoses Hydronephrosis N13.30
[2021-03-12] MEDS: HEPARIN SOD 5,000 UNIT/0.5 ML VIAL SQ SCH (22:56)
[2021-03-12] MEDS: DOCUSATE SODIUM 100 MG CAP PO SCH (22:56)
[2021-03-13] MEDS: SODIUM CHLORIDE 0.9% 1000ML 1,000 ML IV SCH (03:39)
[2021-03-13] MEDS: HEPARIN SOD 5,000 UNIT/0.5 ML VIAL SQ SCH ×2 (06:05→18:22)
[2021-03-13 06:49] LABS: Basophils # (auto) 0.02 K/uL (0-0.2); Basophils % (auto) 0.2 %; Eosinophils # (auto) 0.02 K/uL (0-0.5); Eosinophils % (auto) 0.2 %; Hemoglobin 14.7 g/dL (14.0-18.0); Immature Granulocytes # (auto) 0.02 K/uL (0.00-0.02); Immature Granulocytes % (auto) 0.2 %; Lymphocytes # (auto) 0.62 K/uL (1.2-3.4); Lymphocytes % (auto) 6.2 %; Mean Corpuscular Hgb Conc 33.4 g/dL (32-36); Mean Corpuscular Volume 95.9 fL (80-100); Monocytes # (auto) 0.82 K/uL (0.11-0.59); Monocytes % (auto) 8.2 %; Neutrophils # (auto) 8.46 K/uL (1.4-6.5); Platelet Count 208 K/uL (130-400); RDW Coefficient of Variation 13.6 % (11.5-14.5); RDW Standard Deviation 46.7 fL (36.4-46.3); Red Blood Count 4.59 M/uL (4.7-6.1); White Blood Count 9.96 K/uL (4.8-10.8)
[2021-03-13 07:08] LABS: BUN Creatinine Ratio 32.3 (10-20); C Reactive Protein 8.63 mg/dl (0-0.5); Creatinine Clr Calc Pharmacy 33.1 ml/min; Est GFR (African American) 47.4 ml/min; Est GFR (Non-African American) 40.9 ml/min; Potassium 4.4 mmol/L (3.5-5.1)
[2021-03-13] MEDS: cefTRIAXone SODIUM 1,000 MG in DEXTROSE 5% 50 ML IV SCH (08:19)
[2021-03-13] MEDS ORDERED: HEPARIN SOD 5,000 UNIT/0.5 ML VIAL SQ SCH (09:15)
--- NOTE | 2021-03-13 09:47 | Urology Progress Note ---
Date of Service March 13, 2021 Assessment & Plan (1) Ureter filling defect: (2) Hydronephrosis: Plan: Left ureteral mass suspectedwith subsequent hydronephrosis Currently admitted with Covid and encephalopathy as well as an elevated white blood cell count and acute rise in creatinine Overall seems to be stable and improving Avoid any emergent intervention unless absolutely necessary Continue current therapy with antibiotics We will have to allow appropriate time before surgery given his recent Covid diagnosis although he does not seem to be particularly symptomatic from a Covid standpoint We will continue to follow from a distance Admission and Anticipated Discharge Date Admission Date: March 12, 2021 Subjective Patient is a poor historian who only answers questions on a limited basis Overall seems to be doing okay Discussed the patient briefly with his nurseno major issues overnight Hemodynamically stableafebrile All objective measures are gradually improving White blood cell count has decreased from 17-9.9 Creatinine is decreased from 2-1.6 (baseline is 1.2) CT conducted upon admission was reviewed in detail, I also compared this to his prior CT from approximately month ago This is unchanged He has pretty pronounced hydronephrosis on the left Physical Exam 2 Physical Exam: Nontender along his left flank or left hemiabdomen Results & Data ([facility]) Vital Signs (Past 12 Hours) Vital Signs Temp Pulse Pulse Pulse Resp BP Pulse Ox 03/13/21 08:32 36.2 C L 76 20 138/82 97 03/12/21 23:00 36.1 C L 78 22 134/86 88 L 03/12/21 22:59 80 PG Care Time/CCT Total # of Minutes Spent Total Time Spent with Patient: Total time spent is greater than 50% in coordination of care (as documented) at patient's floor/unit and/or counseling patient: Coding Level of Care Code 05812 Subseq Hosp Care Lvl 2 Diagnoses Ureter filling defect R93.41 Hydronephrosis N13.30 Hydronephrosis type: unspecified (1) Hydronephrosis Hydronephrosis type: unspecified Qualified Code(s): N13.30 - Unspecified hydronephrosis
[2021-03-13] MEDS: DOCUSATE SODIUM 100 MG CAP PO SCH ×2 (10:10→20:20)
[2021-03-13] MEDS: ATORVASTATIN 40 MG TAB PO SCH (10:10)
[2021-03-13] MEDS: TAMSULOSIN HCL 0.4 MG CAP PO SCH (10:11)
[2021-03-13] MEDS: ISOSORBIDE MONO EXTENDED REL 30 MG TABCR PO SCH (10:11)
[2021-03-13] MEDS: POLYETHYLENE (MIRALAX) 17 GM PACK PO SCH (10:11)
[2021-03-13] MEDS: METOPROLOL SUCC 25MG EXT REL TAB PO SCH (10:11)
[2021-03-13] MEDS: SODIUM CHLORIDE 0.45 % 1,000 ML IV SCH ×2 (10:56→23:31)
--- NOTE | 2021-03-13 12:28 | Hospitalist Progress Note ---
Date of Service March 13, 2021 Assessment & Plan (1) Metabolic encephalopathy: (2) Hydronephrosis: (3) Urinary tract infection: (4) COVID: Plan: 76 y/o M with PMH of dementia, HTN, HLD, CAD s/p stents, CABG, JANUARY, h/o prostate cancer s/p seed implant, CKD III presented to ER 03/12 for altered mental status, decreased appetite for 2 weeks [employer]. He is being managed for the following: #. History of dementia #. Likely metabolic encephalopathy In ER patient afebrile, no hypoxia. WBC: 17, BUN: 59, Cr: 2.0, UA: 1+leuk esterase, >30WBC, 1+bacteria, +COVID-[address] Head and CXR are unremarkable. Likely metabolic encephalopathy likely secondary to UTI/Covid/ABEBA on CKD on the background of existing dementia history. One-to-one observation as needed Avoid benzo sedatives Use Seroquel as needed Monitor for delirium, Frequent reorientation Continue treatment for infection and ABEBA, continue to monitor for Covid Continue monitoring and supportive management. #. Hydronephrosis: #. Bladder outlet obstruction #. Possible UTI #. Obstructing urothelial lesion Admitting UA: 1+ leuk esterase,> 30 WBC,> 1+o bacteria. Admitting CTAP: Rectosigmoid fecal impaction/constipation noted, no bowel obstruction present. Redemonstration of severe left hydronephrosis likely due to obstructing urothelial mass just below the ureteropelvic junction and has not appreciably changed as compared to 02/16/2021. Concerns of pericystic infiltration. Recent treatment with Bactrim on 02/23/2021 for possible UTI. Continue with Rocephin 03/12, Schaffer cath Urology evaluated the patient: No emergent intervention unless absolutely necessary. Agrees with current therapy with antibiotics. Await urinary culture. Will need outpatient follow-up with urology. #. ABEBA on CKD III Admitting Cr: 2.0. Baseline~ 1.3 to 1.5 Likely secondary to dehydration and recent Bactrim use Creatinine improving, continue with half NS at 80 mL's an hour. Hold lisinopril. Avoid Bactrim Monitor renal functions, avoid nephrotoxic agents when possible #. COVID-19 Positive 03/12: +COVID-19 NAAT; +Household contacts 2.5-3 weeks ago. Admitting CXR fairly WNL; 03/13 CRP 8.63, 03/13 pro-Sergio negative. Likely decreased appetite past 2 weeks secondary to COVID infection. Patient stable on room air respiratory downey, continue to monitor. Get BNP, continue to monitor/supportive management. #. Other chronic medical conditions: CAD s/p stents & CABG, HTN, prostate adenocarcinoma s/p seed implant, JANUARY [BiPAP and CPAP intolerant] Continue with home cardiac medications. Resume antihypertensive as and when appropriate. Lisinopril on hold for ABEBA over CKD. DVT Prophylaxis Heparin SQ Full Code as per discussion with pt's daughter, Olga, however would not want prolonged if poor prognosis. Follows with Dr Veras for routine care Admission and Anticipated Discharge Date Admission Date: March 12, 2021 Subjective Patient lying in bed, sleeping, difficulty awake, not wanting to communicate/cooperate. Denies any discomfort or pain but other ROS hard to obtain. Per RN, patient ripped out his IV line in the morning and was combative. Per RN, he has not taken his a.m. meds. Physical Exam Physical Exam: GENERAL: Sleepy. NAD, on RA. HEENT: No pallor, no icterus. NECK: No JVD, no neck masses. HEART: S1 and S2 heard. Regular rate and rhythm. No murmur, no gallop. RESPIRATORY SYSTEM: Normal AP diameter. No accessory muscle use. No wheezing, no crackles appreciated (pt didn't take deep breaths) ABDOMEN: Soft, bowel sounds present, nontender-->didn't notice grimmacing, no distention. CENTRAL NERVOUS SYSTEM: No facial droop. Moves extremities. EXTREMITIES: No edema, no erythema seen. Results & Data Results & Data ([facility]) Vital Signs (Past 12 Hours) Vital Signs Temp Pulse Resp BP Pulse Ox 03/13/21 08:32 36.2 C L 76 20 138/82 97 (1) Urinary tract infection Hematuria presence: with hematuria Urinary tract infection type: site unspecified Qualified Code(s): N39.0 - Urinary tract infection, site not specified; R31.9 - Hematuria, unspecified
[2021-03-14 01:29] LABS: Hematocrit (blood only) 43.6 % (42-52); Hemoglobin 14.7 g/dL (14.0-18.0); Mean Corpuscular Hemoglobin 33.3 pg (25-34); Mean Corpuscular Volume 98.6 fL (80-100); Mean Platelet Volume 9.9 fL (7.4-10.4); Platelet Count 229 K/uL (130-400); RDW Coefficient of Variation 13.7 % (11.5-14.5); RDW Standard Deviation 48.6 fL (36.4-46.3); Red Blood Count 4.42 M/uL (4.7-6.1); White Blood Count 9.79 K/uL (4.8-10.8)
[2021-03-14 01:35] LABS: Mean Corpuscular Hgb Conc 33.7 g/dL (32-36)
[2021-03-14 02:03] LABS: Calcium 9.8 mg/dl (8.5-10.1); Creatinine Clr Calc Pharmacy 35.5 ml/min; Est GFR (African American) 51.7 ml/min; Est GFR (Non-African American) 44.6 ml/min; Magnesium 2.3 mg/dl (1.7-2.4); Phosphorus 3.1 mg/dl (2.5-4.9); Potassium 6.2 mmol/L (3.5-5.1)
[2021-03-14] MEDS ORDERED: CALCIUM GLUCONATE 10% 1,000 MG in DEXTROSE 5% 50 ML IV ONE (02:16)
[2021-03-14] MEDS ORDERED: FUROSEMIDE 40 MG/4 ML VIAL IV ONE (02:16)
[2021-03-14] MEDS ORDERED: STAT IV STA (02:16)
--- NOTE | 2021-03-14 02:48 | Communication Note ---
Date of Service: March 14, 2021 Around 0030, patient had an approx. 17-beat run of tachyarrhythmia, ectopy vs. ventricular tachycardia, before converting back to NSR in the 80s with occ asional PACs. He was asymptomatic throughout this time and his vital signs were normal. Labs were obtained, which did demonstrate improvement improvement of his BUN/Cr/eGFR, but a notable increase in his K (6.2) and also mildly with his Na (149). Unfortunately, he has been somewhat agitated overnight and refusing anything PO. We will attempt to obtain ECG - his tele has not re-demonstrated tachyarrhythmia and PACs are decreased. Will give Ca-gluconate 1g x 1 alongside Lasix 40mg IV x 1 to help with the K in the setting of the above. Given the refusal for PO, limited in Patiromer or bowel regimen at this time. Recheck K in early AM. Recheck ECG in AM, if able. Monitor tele. Resident Activity Tracking Resident Involvement: Resident Care Provided Care Provided: Adult Hospital Medicine
[2021-03-14] MEDS: DOCUSATE SODIUM 100 MG CAP PO SCH ×3 (07:32→20:07)
[2021-03-14] MEDS: HEPARIN SOD 5,000 UNIT/0.5 ML VIAL SQ SCH ×2 (07:32→20:07)
[2021-03-14] MEDS: METOPROLOL SUCC 25MG EXT REL TAB PO SCH ×2 (07:32→10:25)
[2021-03-14] MEDS: TAMSULOSIN HCL 0.4 MG CAP PO SCH ×2 (07:32→10:25)
[2021-03-14] MEDS: ATORVASTATIN 40 MG TAB PO SCH ×2 (07:32→10:23)
[2021-03-14] MEDS: ISOSORBIDE MONO EXTENDED REL 30 MG TABCR PO SCH ×2 (07:32→10:24)
[2021-03-14] MEDS: POLYETHYLENE (MIRALAX) 17 GM PACK PO SCH ×2 (07:50→10:25)
[2021-03-14] MEDS: cefTRIAXone SODIUM 1,000 MG in DEXTROSE 5% 50 ML IV SCH ×2 (08:01→08:30)
[2021-03-14 09:20] LABS: BUN Creatinine Ratio 30.4 (10-20); Calcium 9.4 mg/dl (8.5-10.1); Creatinine Clr Calc Pharmacy 38.6 ml/min; Est GFR (African American) 57.2 ml/min; Est GFR (Non-African American) 49.3 ml/min; Magnesium 2.1 mg/dl (1.7-2.4)
--- NOTE | 2021-03-14 11:58 | Electrocardiogram Report ---
Test Reason : Blood Pressure : / mmHG Vent. Rate : 088 BPM Atrial Rate : 088 BPM P-R Int : 136 ms QRS Dur : 092 ms QT Int : 360 ms P-R-T Axes : -29 -02 040 degrees QTc Int : 435 ms Poor data quality, interpretation may be adversely affected Sinus rhythm with Premature supraventricular complexes Minimal voltage criteria for LVH, may be normal variant Lateral infarct (cited on or before 15-JUN-2015) Abnormal ECG When compared with ECG of 31-JAN-2021 12:43, Significant changes have occurred Confirmed by David Sharp ([id number]) on 03/14/2021 11:57:50 AM Referred By: REFERRED SELF Confirmed By:David Sharp
--- NOTE | 2021-03-14 16:21 | Hospitalist Progress Note ---
Date of Service March 14, 2021 Assessment & Plan (1) Metabolic encephalopathy: (2) Hydronephrosis: (3) Urinary tract infection: (4) COVID: Plan: 76 y/o M with PMH of dementia, HTN, HLD, CAD s/p stents, CABG, JANUARY, h/o prostate cancer s/p seed implant, CKD III presented to ER 03/12 for altered mental status, decreased appetite for 2 weeks WWE W[employer]. He is being managed for the following: #. History of dementia #. Likely metabolic encephalopathy In ER patient afebrile, no hypoxia. WBC: 17, BUN: 59, Cr: 2.0, UA: 1+leuk esterase, >30WBC, 1+bacteria, +COVID-[address] Head and CXR are unremarkable. Likely metabolic encephalopathy likely secondary to UTI/Covid/ABEBA on CKD on the background of existing dementia history. One-to-one observation as needed Avoid benzo sedatives Use Seroquel as needed Monitor for delirium, Frequent reorientation Continue treatment for infection and BAEBA, continue to monitor for Covid Continue monitoring and supportive management. #. Hydronephrosis: #. Bladder outlet obstruction #. Possible UTI #. Obstructing urothelial lesion Admitting UA: 1+ leuk esterase,> 30 WBC,> 1+o bacteria. Admitting CTAP: Rectosigmoid fecal impaction/constipation noted, no bowel obstruction present. Redemonstration of severe left hydronephrosis likely due to obstructing urothelial mass just below the ureteropelvic junction and has not appreciably changed as compared to 02/16/2021. Concerns of pericystic infiltration. Recent treatment with Bactrim on 02/23/2021 for possible UTI. Continue with Rocephin 03/12, Schaffer cath Urology evaluated the patient: No emergent intervention unless absolutely necessary. Agrees with current therapy with antibiotics. Await urinary culture. Will need outpatient follow-up with urology. #. ABEBA on CKD III Admitting Cr: 2.0. Baseline~ 1.3 to 1.5 Likely secondary to dehydration and recent Bactrim use Creatinine improving, resolved. Can DC IV fluids. Resume lisinopril tomorrow. Avoid Bactrim Monitor renal functions, avoid nephrotoxic agents when possible #. COVID-19 Positive 03/12: +COVID-19 NAAT; +Household contacts 2.5-3 weeks ago. Admitting CXR fairly WNL; 03/13 CRP 8.63, 03/13 pro-Sergio negative. Likely decreased appetite past 2 weeks secondary to COVID infection. Patient stable on room air respiratory downey, continue to monitor. BNP 150, continue to monitor/supportive management. #. Other chronic medical conditions: CAD s/p stents & CABG, HTN, prostate adenocarcinoma s/p seed implant, JANUARY [BiPAP and CPAP intolerant] Continue with home cardiac medications. Resume antihypertensive as and when appropriate. Lisinopril on hold for ABEBA over CKD. DVT Prophylaxis Heparin SQ Conditional code (No invasive airway interventions, ok with CPR and other ACLS procedures) Follows with Dr Veras for routine care Per RN, patient denying his food and medication. He has been eating little. 03/14: Called patient's daughter Hailey over the phone and updated about his current status. Updated about overnight event of tachyarrhythmia and potassium of 6.2 requiring treatment, currently normal. Also updated about the irreversible nature of his dementia [he is on and off confused, more so confused lately at baseline] which will continue to worsen going forward. Answered all her questions, she voiced understanding and was agreeable to the plan of care. She mentioned that her personal choice is to get the patient to home with hospice, patient has 24/7 care at home and would not like SNF/rehab. But she would like to talk with her rest of the family including his POA [another daughter] before making any decisions including change of his CODE STATUS. As of now she wants full code. She stated she will reach out to hospital if there is any new changes. 03/14 Per RN, Dtr called back and changed code status to coditional (no invasive airway but ok with CPR and other ACLS procedures.) Admission and Anticipated Discharge Date Admission Date: March 12, 2021 Subjective Patient lying in bed, sleeping, initially talked for few minutes and then went back to sleep, difficulty to awake, not wanting to communicate/unable to cooperate. Denies any discomfort or pain but other ROS hard to obtain. Per RN, patient has been denying his foods and medicine, gets agitated when turning in his bed. Overnight, patient had 17 beat of tachyarrhythmia [ectopy versus ventricular tachycardia] and went back to NSR, electrolytes revealed potassium elevated at 6.2, EKG was done --> poor quality. Per RN, he has not taken his a.m. meds. Physical Exam Physical Exam: GENERAL: Sleepy. NAD, on RA. HEENT: No pallor, no icterus. NECK: No JVD, no neck masses. HEART: S1 and S2 heard. Regular rate and rhythm. No murmur, no gallop. RESPIRATORY SYSTEM: Normal AP diameter. No accessory muscle use. No wheezing, no crackles appreciated (pt didn't take deep breaths) ABDOMEN: Soft, bowel sounds present, nontender-->didn't notice grimmacing, no distention. CENTRAL NERVOUS SYSTEM: No facial droop. Moves extremities. EXTREMITIES: No edema, no erythema seen. Results & Data Results & Data ([facility]) Vital Signs (Past 12 Hours) Vital Signs Temp Pulse Pulse Resp BP BP Pulse Ox 03/14/21 15:27 36.7 C 72 18 120/82 94 03/14/21 11:43 36.9 C 106 H 20 127/87 96 03/14/21 08:34 36.9 C 94 H 20 134/90 98 (1) Urinary tract infection Hematuria presence: with hematuria Urinary tract infection type: site un specified Qualified Code(s): N39.0 - Urinary tract infection, site not specified; R31.9 - Hematuria, unspecified
[2021-03-15] MEDS: ISOSORBIDE MONO EXTENDED REL 30 MG TABCR PO SCH (09:00)
[2021-03-15] MEDS: METOPROLOL SUCC 25MG EXT REL TAB PO SCH (09:00)
[2021-03-15] MEDS: POLYETHYLENE (MIRALAX) 17 GM PACK PO SCH (09:00)
[2021-03-15] MEDS: TAMSULOSIN HCL 0.4 MG CAP PO SCH (09:00)
[2021-03-15] MEDS: cefTRIAXone SODIUM 1,000 MG in DEXTROSE 5% 50 ML IV SCH (09:01)
[2021-03-15] MEDS: ATORVASTATIN 40 MG TAB PO SCH (09:01)
[2021-03-15] MEDS: DOCUSATE SODIUM 100 MG CAP PO SCH ×2 (09:01→21:36)
[2021-03-15] MEDS: HEPARIN SOD 5,000 UNIT/0.5 ML VIAL SQ SCH ×2 (09:02→21:38)
--- NOTE | 2021-03-15 14:56 | Hospitalist Progress Note ---
Date of Service March 15, 2021 Assessment & Plan (1) Metabolic encephalopathy: (2) Hydronephrosis: (3) Urinary tract infection: (4) COVID: Plan: 76 y/o M with PMH of dementia, HTN, HLD, CAD s/p stents, CABG, JANUARY, h/o prostate cancer s/p seed implant, CKD III presented to ER 03/12 for altered mental status, decreased appetite for 2 weeks [employer] CO[employer]. He is being managed for the following: #. History of dementia #. Likely metabolic encephalopathy In ER patient afebrile, no hypoxia. WBC: 17, BUN: 59, Cr: 2.0, UA: 1+leuk esterase, >30WBC, 1+bacteria, +COVID-[address] Head and CXR are unremarkable. Likely metabolic encephalopathy likely secondary to UTI/Covid/ABEBA on CKD on the background of existing dementia history. One-to-one observation as needed Avoid benzo sedatives Use Seroquel as needed Monitor for delirium, Frequent reorientation Continue treatment for infection and ABEBA, continue to monitor for Covid Patient not eating much, will put him on gentle hydration with D5 half NS. Continue monitoring and supportive management. #. Hydronephrosis: #. Bladder outlet obstruction #. Possible UTI/no sepsis #. Obstructing urothelial lesion Admitting UA: 1+ leuk esterase,> 30 WBC,> 1+o bacteria. Admitting CTAP: Rectosigmoid fecal impaction/constipation noted, no bowel obstruction present. Redemonstration of severe left hydronephrosis likely due to obstructing urothelial mass just below the ureteropelvic junction and has not appreciably changed as compared to 02/16/2021. Concerns of pericystic infiltration. Recent treatment with Bactrim on 02/23/2021 for possible UTI. Continue with Rocephin 03/12, Schaffer cath Urology evaluated the patient: No emergent intervention unless absolutely necessary. Agrees with current therapy with antibiotics. Await urinary culture. Will need outpatient follow-up with urology if he wants to pursue further treatment. #. ABEBA on CKD III Admitting Cr: 2.0. Baseline~ 1.3 to 1.5 Likely secondary to dehydration and recent Bactrim use Creatinine improving, resolved. Can DC IV fluids. Continue with lisinopril tomorrow. Avoid Bactrim Monitor renal functions, avoid nephrotoxic agents when possible #. COVID-19 Positive 03/12: +COVID-19 NAAT; +Household contacts 2.5-3 weeks ago. Admitting CXR fairly WNL; 03/13 CRP 8.63, 03/13 pro-Sergio negative. Likely decreased appetite past 2 weeks secondary to COVID infection. Patient stable on room air respiratory downey, continue to monitor. BNP 150, continue to monitor/supportive management. #. Other chronic medical conditions: CAD s/p stents & CABG, HTN, prostate adenocarcinoma s/p seed implant, JANUARY [BiPAP and CPAP intolerant] Continue with home cardiac medications. Resume antihypertensive as and when appropriate. Lisinopril on hold for ABEBA over CKD. DVT Prophylaxis Heparin SQ Conditional code (No invasive airway interventions, ok with CPR and other ACLS procedures) Follows with Dr Veras for routine care Per RN, patient denying his food and medication. He has been eating little. 03/14: Called patient's daughter Hailey over the phone and updated about his current status. Updated about overnight event of tachyarrhythmia and potassium of 6.2 requiring treatment, currently normal. Also updated about the irreversible nature of his dementia [he is on and off confused, more so confused lately at baseline] which will continue to worsen going forward. Answered all her questions, she voiced understanding and was agreeable to the plan of care. She mentioned that her personal choice is to get the patient to home with hospice, patient has 24/7 care at home and would not like SNF/rehab. But she would like to talk with her rest of the family including his POA [another daughter] before making any decisions including change of his CODE STATUS. As of now she wants full code. She stated she will reach out to hospital if there is any new changes. 03/14 Per RN, Dtr called back and changed code status to coditional (no invasive airway but ok with CPR and other ACLS procedures.) 03/15: Patient's daughter and POA Olga given a phone call and updated about the current status of the patient. It appears that other daughter Hailey wants hospice with home and Olga wants hospice at facility. They are working on deciding where they want their father to go. For the time being, they want the hospice team be consulted and would like to discuss further with the hospice team or manager rn case. Admission and Anticipated Discharge Date Admission Date: March 12, 2021 Subjective Patient lying in bed, minimally communicative, difficulty to awake, not wanting to communicate/unable to cooperate. Denies any discomfort or pain but other ROS hard to obtain. Per RN, patient has been denying his foods and medicine, r ipping off his chest leads. Due to concern of not taking food, will start him on gentle hydration. Physical Exam Physical Exam: GENERAL: Sleepy. NAD, on RA. HEENT: No pallor, no icterus. NECK: No JVD, no neck masses. HEART: S1 and S2 heard. Regular rate and rhythm. No murmur, no gallop. RESPIRATORY SYSTEM: Normal AP diameter. No accessory muscle use. No wheezing, no crackles appreciated (pt didn't take deep breaths) ABDOMEN: Soft, bowel sounds present, nontender-->didn't notice grimmacing, no distention. CENTRAL NERVOUS SYSTEM: No facial droop. Moves extremities. EXTREMITIES: No edema, no erythema seen. Results & Data Results & Data ([facility]) Vital Signs (Past 12 Hours) Vital Signs Temp Pulse Pulse Resp BP Pulse Ox 03/15/21 09:40 36.4 C L 65 20 135/81 98 03/15/21 07:13 83 (1) Urinary tract infection Hematuria presence: with hematuria Urinary tract infection type: site unspecified Qualified Code(s): N39.0 - Urinary tract infection, site not specified; R31.9 - Hematuria, unspecified
[2021-03-15] MEDS: D5W AND 1/2NSS 1,000 ML IV SCH (15:08)
[2021-03-15] MEDS: lisinopril 20 MG TAB PO SCH (21:36)
[2021-03-16] MEDS: D5W AND 1/2NSS 1,000 ML IV SCH ×2 (04:16→16:50)
[2021-03-16 07:33] LABS: Creatinine Clr Calc Pharmacy 31.9 ml/min; Est GFR (African American) 47.8 ml/min; Est GFR (Non-African American) 41.2 ml/min; Magnesium 2.2 mg/dl (1.7-2.4); Phosphorus 2.7 mg/dl (2.5-4.9); Potassium 3.7 mmol/L (3.5-5.1)
[2021-03-16] MEDS: ISOSORBIDE MONO EXTENDED REL 30 MG TABCR PO SCH (07:46)
[2021-03-16] MEDS: ATORVASTATIN 40 MG TAB PO SCH (07:46)
[2021-03-16] MEDS: DOCUSATE SODIUM 100 MG CAP PO SCH ×2 (07:46→21:11)
[2021-03-16] MEDS: POLYETHYLENE (MIRALAX) 17 GM PACK PO SCH (07:47)
[2021-03-16] MEDS: TAMSULOSIN HCL 0.4 MG CAP PO SCH (07:47)
[2021-03-16] MEDS: lisinopril 20 MG TAB PO SCH (07:47)
[2021-03-16] MEDS: METOPROLOL SUCC 25MG EXT REL TAB PO SCH (07:47)
[2021-03-16] MEDS: cefTRIAXone SODIUM 1,000 MG in DEXTROSE 5% 50 ML IV SCH (07:48)
[2021-03-16] MEDS: HEPARIN SOD 5,000 UNIT/0.5 ML VIAL SQ SCH ×2 (07:49→21:12)
--- NOTE | 2021-03-16 16:30 | Hospitalist Progress Note ---
Date of Service March 16, 2021 Assessment & Plan (1) Metabolic encephalopathy: (2) Hydronephrosis: (3) Urinary tract infection: (4) COVID: Plan: 76 y/o M with PMH of dementia, HTN, HLD, CAD s/p stents, CABG, JANUARY, h/o prostate cancer s/p seed implant, CKD III presented to ER 03/12 for altered mental status, decreased appetite for 2 weeks [employer]. He is being managed for the following: #. History of dementia #. Likely metabolic encephalopathy In ER patient afebrile, no hypoxia. WBC: 17, BUN: 59, Cr: 2.0, UA: 1+leuk esterase, >30WBC, 1+bacteria, +COVID-[address] Head and CXR are unremarkable. Likely metabolic encephalopathy likely secondary to UTI/Covid/ABEBA on CKD on the background of existing dementia history. One-to-one observation as needed Avoid benzo sedatives Use Seroquel as needed Monitor for delirium, Frequent reorientation Continue treatment for infection and ABEBA, continue to monitor for Covid Patient not eating much, will c/w gentle hydration with D5 half NS. Continue monitoring and supportive management. #. Hydronephrosis: #. Bladder outlet obstruction #. Possible UTI/no sepsis #. Obstructing urothelial lesion Admitting UA: 1+ leuk esterase,> 30 WBC,> 1+o bacteria. Admitting CTAP: Rectosigmoid fecal impaction/constipation noted, no bowel obstruction present. Redemonstration of severe left hydronephrosis likely due to obstructing urothelial mass just below the ureteropelvic junction and has not appreciably changed as compared to 02/16/2021. Concerns of pericystic infiltration. Recent treatment with Bactrim on 02/23/2021 for possible UTI. Continue with Rocephin 03/12, Schaffer cath Urology evaluated the patient: No emergent intervention unless absolutely necessary. Agrees with current therapy with antibiotics. Await urinary culture. Will need outpatient follow-up with urology if he wants to pursue further treatment. #. ABEBA on CKD III Admitting Cr: 2.0. Baseline~ 1.3 to 1.5 Likely secondary to dehydration and recent Bactrim use Creatinine better. on IVF. HOld lisinopril. Avoid Bactrim Monitor renal functions, avoid nephrotoxic agents when possible #. COVID-19 Positive 03/12: +COVID-19 NAAT; +Household contacts 2.5-3 weeks ago. Admitting CXR fairly WNL; 03/13 CRP 8.63, 03/13 pro-Sergio negative. Likely decreased appetite past 2 weeks secondary to COVID infection. Patient stable on room air respiratory downey, continue to monitor. BNP 150, continue to monitor/supportive management. #. Other chronic medical conditions: CAD s/p stents & CABG, HTN, prostate adenocarcinoma s/p seed implant, JANUARY [BiPAP and CPAP intolerant] Continue with home cardiac medications. Resume antihypertensive as and when appropriate. Lisinopril on hold for ABEBA over CKD. DVT Prophylaxis Heparin SQ Disposition: Awaiting [facility] for Hospice, likely per CM. Conditional code (No invasive airway interventions, ok with CPR and other ACLS procedures) Follows with Dr Veras for routine care Per RN, patient denying his food and medication. He has been eating little. 03/14: Called patient's daughter Hailey over the phone and updated about his current status. Updated about overnight event of tachyarrhythmia and potassium of 6.2 requiring treatment, currently normal. Also updated about the irreversible nature of his dementia [he is on and off confused, more so confused lately at baseline] which will continue to worsen going forward. Answered all her questions, she voiced understanding and was agreeable to the plan of care. She mentioned that her personal choice is to get the patient to home with hospice, patient has 24/7 care at home and would not like SNF/rehab. But she would like to talk with her rest of the family including his POA [another daughter] before making any decisions including change of his CODE STATUS. As of now she wants full code. She stated she will reach out to hospital if there is any new changes. 03/14 Per RN, Dtr called back and changed code status to coditional (no invasive airway but ok with CPR and other ACLS procedures.) 03/15: Patient's daughter and POA Olga given a phone call and updated about the current status of the patient. It appears that other daughter Hailey wants hospice with home and Olga wants hospice at facility. They are working on deciding where they want their father to go. For the time being, they want the hospice team be consulted and would like to discuss further with the hospice team or returned case inspector. Admission and Anticipated Discharge Date Admission Date: March 12, 2021 Subjective Patient lying in bed, minimally communicative, difficult to awake as usual, not wanting to communicate/unable to cooperate. Denies any discomfort or pain but other ROS hard to obtain. Per RN, patient has been denying his foods and medicine, ripping off his chest leads. Due to concern of not taking food, will c/w gentle hydration. Physical Exam Physical Exam: GENERAL: Sleepy. NAD, on RA. HEENT: No pallor, no icterus. NECK: No JVD, no neck masses. HEART: S1 and S2 heard. Regular rate and rhythm. No murmur, no gallop. RESPIRATORY SYSTEM: Normal AP diameter. No accessory muscle use. No wheezing, no crackles appreciated (pt didn't take deep breaths) ABDOMEN: Soft, bowel sounds present, nontender-->didn't notice grimmacing, no distention. CENTRAL NERVOUS SYSTEM: No facial droop. Moves extremities. EXTREMITIES: No edema, no erythema seen. Results & Data Results & Data ([facility]) Vital Signs (Past 12 Hours) Vital Signs Pulse 03/16/21 15:14 64 (1) Urinary tract infection Hematuria presence: with hematuria Urinary tract infection type: site unspecified Qualified Code(s): N39.0 - Urinary tract infection, site not specified; R31.9 - Hematuria, unspecified
[2021-03-17 07:44] LABS: BUN Creatinine Ratio 26.7 (10-20); Calcium 8.7 mg/dl (8.5-10.1); Creatinine Clr Calc Pharmacy 38.8 ml/min; Est GFR (African American) 60.9 ml/min; Est GFR (Non-African American) 52.5 ml/min; Potassium 3.6 mmol/L (3.5-5.1)
[2021-03-17] MEDS: cefTRIAXone SODIUM 1,000 MG in DEXTROSE 5% 50 ML IV SCH (08:07)
[2021-03-17] MEDS: HEPARIN SOD 5,000 UNIT/0.5 ML VIAL SQ SCH ×2 (08:07→20:42)
[2021-03-17] MEDS: ISOSORBIDE MONO EXTENDED REL 30 MG TABCR PO SCH (08:10)
[2021-03-17] MEDS: TAMSULOSIN HCL 0.4 MG CAP PO SCH (08:10)
[2021-03-17] MEDS: ATORVASTATIN 40 MG TAB PO SCH (08:10)
[2021-03-17] MEDS: POLYETHYLENE (MIRALAX) 17 GM PACK PO SCH (08:10)
[2021-03-17] MEDS: DOCUSATE SODIUM 100 MG CAP PO SCH ×2 (08:10→20:42)
[2021-03-17] MEDS: METOPROLOL SUCC 25MG EXT REL TAB PO SCH (08:10)
[2021-03-17] MEDS: D5W AND 1/2NSS 1,000 ML IV SCH (09:12)
--- NOTE | 2021-03-17 11:18 | Hospitalist Progress Note ---
Date of Service March 17, 2021 Assessment & Plan (1) Metabolic encephalopathy: (2) Hydronephrosis: (3) Urinary tract infection: (4) COVID: Plan: 76 y/o M with PMH of dementia, HTN, HLD, CAD s/p stents, CABG, JANUARY, h/o prostate cancer s/p seed implant, CKD III presented to ER 03/12 for altered mental status, decreased appetite for 2 weeks [employer]. He is being managed for the following: #. History of dementia #. Likely metabolic encephalopathy In ER patient afebrile, no hypoxia. WBC: 17, BUN: 59, Cr: 2.0, UA: 1+leuk esterase, >30WBC, 1+bacteria, +COVID-[address] Head and CXR are unremarkable. Likely metabolic encephalopathy likely secondary to UTI/Covid/ABEBA on CKD on the background of existing dementia history. One-to-one observation as needed Avoid benzo sedatives Use Seroquel as needed Monitor for delirium, Frequent reorientation Continue treatment for UTI Patient not eating much, will continue gentle hydration with D5 half NS. Continue monitoring and supportive management. #. Hydronephrosis: #. Bladder outlet obstruction #. Possible UTI/no sepsis #. Obstructing urothelial lesion Admitting UA: 1+ leuk esterase,> 30 WBC,> 1+o bacteria. Admitting CTAP: Rectosigmoid fecal impaction/constipation noted, no bowel obstruction present. Redemonstration of severe left hydronephrosis likely due to obstructing urothelial mass just below the ureteropelvic junction and has not appreciably changed as compared to 02/16/2021. Concerns of pericystic infiltration. Recent treatment with Bactrim on 02/23/2021 for possible UTI. Continue with Rocephin 03/12, Schaffer cath Urology evaluated the patient: No emergent intervention unless absolutely necessary. Agrees with current therapy with antibiotics. Urine culture noted Will need outpatient follow-up with urology if he wants to pursue further treatment. #. ABEBA on CKD III Admitting Cr: 2.0. Baseline~ 1.3 to 1.5 Likely secondary to dehydration and recent Bactrim use Creatinine improved. 1.31 today Hold lisinopril. Avoid Bactrim Monitor renal functions, avoid nephrotoxic agents when possible #. COVID-19 Positive 03/12: +COVID-19 NAAT; +Household contacts 2.5-3 weeks ago. Admitting CXR fairly WNL; 03/13 CRP 8.63, 03/13 pro-Sergio negative. Likely decreased appetite past 2 weeks secondary to COVID infection. Patient stable on room air respiratory downey, continue to monitor. BNP 150, continue to monitor/supportive management. Tested positive for COVID. Remains on room air No COVID specific therapies #. Other chronic medical conditions: CAD s/p stents & CABG, HTN, prostate adenocarcinoma s/p seed implant, JANUARY [BiPAP and CPAP intolerant] Continue with home cardiac medications. Resume antihypertensive as and when appropriate. Lisinopril on hold for ABEBA over CKD. DVT Prophylaxis Heparin SQ Disposition: Awaiting [facility] for Hospice, likely per CM. Conditional code (No invasive airway interventions, ok with CPR and other ACLS procedures) Follows with Dr Veras for routine care Dr Aldana had been discussing with family over the past few days. Family still deciding between home hospice vs facility hospice. CM working on this Admission and Anticipated Discharge Date Admission Date: March 12, 2021 Subjective Patient seen and examined Patient awakens to touch but falls back to sleep Did not answer any questions of ROS. Physical Exam Constitutional: + ill appearing and + well hydrated; no acute distress ENMT: external ear and nose normal, oropharynx normal Respiratory: normal respiratory effort, lungs clear to auscultation Cardiovascular: Rate/Rhythm: regular rate and regular rhythm S1 S2 Gastrointestinal (Abdomen): normal bowel sounds, soft, nontender, no hepatosplenomegaly Musculoskeletal: No pedal edema Neurologic: Limited exam as patient did not participate Drowsy Results & Data Results & Data ([facility]) Vital Signs (Past 12 Hours) Vital Signs Pulse Resp BP Pulse Ox 03/17/21 06:13 76 18 145/92 H 98 Laboratory Results Abnormal lab results 03/17/21 Range/Units 06:39 Sodium 147 H (136-145) mmol/L Chloride 117 H (98-107) mmol/L BUN 35 H (6-23) mg/dl BUN/Creatinine Ratio 26.7 H (10-20) Glucose 109 H (70-99(Fasting)) mg/dl (1) Urinary tract infection Hematuria presence: with hematuria Urinary tract infection type: site unspecified Qualified Code(s): N39.0 - Urinary tract infection, site not specified; R31.9 - Hematuria, unspecified
[2021-03-18] MEDS: cefTRIAXone SODIUM 1,000 MG in DEXTROSE 5% 50 ML IV SCH (08:38)
[2021-03-18] MEDS: POLYETHYLENE (MIRALAX) 17 GM PACK PO SCH (09:09)
[2021-03-18] MEDS: METOPROLOL SUCC 25MG EXT REL TAB PO SCH (09:09)
[2021-03-18] MEDS: ISOSORBIDE MONO EXTENDED REL 30 MG TABCR PO SCH (09:09)
[2021-03-18] MEDS: DOCUSATE SODIUM 100 MG CAP PO SCH (09:09)
[2021-03-18] MEDS: TAMSULOSIN HCL 0.4 MG CAP PO SCH (09:09)
[2021-03-18] MEDS: ATORVASTATIN 40 MG TAB PO SCH (09:09)
[2021-03-18] MEDS: HEPARIN SOD 5,000 UNIT/0.5 ML VIAL SQ SCH (09:11)
--- NOTE | 2021-03-18 10:40 | Discharge Summary ---
Date of Service March 18, 2021 Admission HPI Per Admitting Provider Patient is 76 y/o M with PMH dementia, HTN, dyslipidemia, CAD s/p stents, CABG, JANUARY, h/o prostate cancer s/p seed implant, CKD III presented to ER for altered mental status. History obtained from patient's daughterOlga secondary to patient's current status. Patient lives with other daughter who cares for him and they have caregivers assisting. Reports patient baseline is oriented to person only and often has agitation and aggressive tendencies. With history hospitalization 01/31/2021-02/04/2021 from metabolic encephalopathy, urinary retention. Patient's daughter reports since being home patient has had continued confusion. She states the past 2 weeks he has had poor appetite with decreased eating and drinking. On 02/23/2021 had appointment with [facility] urology and was started on Bactrim x14 days for possible UTI. She reports positive COVID contacts in household members 2 weeks ago. Reports home nurse was at house today to remove and replace Schaffer catheter. Was able to remove however was not able to replace secondary to patient being agitated, so daughter brought patient to ER. Reports patient had BM 2 days ago. Denies any known vomiting, cough, noted shortness of breath, fever, melena, hematochezia, extremity edema, hematuria, reported CP. Patient received 2 COVID-19 vaccinations last being around 04/2020. Has not received booster. In ER patient afebrile, no hypoxia. WBC: 17, BUN: 59, Cr: 2.0, UA: 1+leuk esterase, >30WBC, 1+bacteria, +COVID-[address] Head and CXR are unremarkable. CT ABD/Pelvis: rectosigmoid fecal impaction and moderate constipation. No bowel obstruction is seen.. Again seen is severe left hydronephrosis, likely related to an obstructing urothelial mass just below the ureteropelvic junction. This has not appreciably changed as compared to 02/16/2021. Neoplasm remains the diagnosis of exclusion.. The bladder is decompressed around a Schaffer catheter and appears thick walled. There is pericystic infiltration Admission Exam Per Admitting Provider General: no distress, thin elderly male Head: normocephalic, atraumatic Eyes: conjunctiva non-injected, anicteric ENT: normal inspection external ears, nose, mucous membranes dry Neck: supple, trachea midline Lungs: clear, no respiratory distress, no wheezing/rhonchi/rales CV: RRR, no pretibial edema Abd: normal BS, soft, no apparent tenderness Ext: no cyanosis, no calf tenderness Neuro: Alert not oriented, lethargic, is pulling at pulse ox, is able to be redirected Skin: warm, dry, ecchymosis left hand Principal Diagnosis Metabolic encephalopathy Urinary tract infection Severe left hydronephrosis due to urothelial lesion Acute on chronic kidney disease COVID 19 infection Discharge Exam Constitutional + ill appearing and + well hydrated; no acute distress ENMT external ear and nose normal, oropharynx normal Respiratory normal respiratory effort, lungs clear to auscultation Cardiovascular Rate/Rhythm: regular rate and regular rhythm S1 S2 Gastrointestinal (Abdomen) normal bowel sounds, soft, nontender, no hepatosplenomegaly Musculoskeletal No pedal edema Neurologic Drowsy. Awakens to touch but not communicative Genitourinary Schaffer in situ Discharge Data Allergies Allergy/AdvReac Type Severity Reaction Status Date / Time No Known Allergies Allergy Verified 03/12/21 12:04 Consultations 03/12/21 13:53 ED Decision to Admit Stat 03/12/21 15:58 Consult Urology Routine Ordered Studies 03/12/21 11:05 CT head/brain wo con Stat Brain parenchyma: There are age-related involutional changes noting mild to moderate subcortical and periventricular microangiopathic change. There is no hemorrhage, mass effect, or evidence of acute territorial ischemia by CT cr iteria. Donaldson-white matter differentiation is preserved. No extra-axial fluid collection is seen. Ventricles, sulci, cisterns: Prominent secondary to involutional change. Intracranial vasculature: There is atherosclerotic calcification of the cavernous carotid and vertebral arteries. Calvarium: Unremarkable. Sinuses and mastoids: The paranasal sinuses are clear. The mastoid air cells are well pneumatized. Orbits: The bony orbits are grossly intact. There are bilateral ocular lens implants. IMPRESSION: There is no hemorrhage, mass effect, or evidence of acute territorial ischemia by CT criteria 03/12/21 12:16 CT abd pelvis wo con Stat Lung bases: Midline sternotomy wires are noted. The heart is mildly enlarged and without pericardial effusion. The coronary arteries are densely calcified. The lung bases are clear. A small hiatal hernia is noted Liver: The unenhanced liver is normal in size, contour, and attenuation. There is no intrahepatic biliary ductal dilatation. Gallbladder: Distended but otherwise normal in appearance. Spleen: Normal in size and attenuation. Pancreas: Unremarkable. Adrenal glands: Unremarkable. Kidneys: There is asymmetric cortical atrophy of the left kidney as compared to the right with severe left-sided hydronephrosis. The left ureter is normal in caliber, and this is unchanged from previous. An obstructing urothelial lesion is suggested just below the left ureter pelvic junction on image #229. This measures approximately 2.4 cm in length. No renal calculi are identified and there is no right-sided hydronephrosis. There is no evidence of contour deforming renal mass lesion. Abdominal vasculature: The abdominal aorta is normal in course and caliber noting mild atherosclerotic calcification. Bowel: There is rectosigmoid fecal impaction and moderate constipation. No bowel obstruction is seen. There is mild colonic diverticulosis without CT evidence of acute diverticulitis. The cecum is located in the left lower quadrant. The appendix is well-visualized and normal. Peritoneum: There is no intraperitoneal free air or abdominal ascites. Lymphadenopathy: None. Pelvic viscera: The prostate gland is enlarged and heterogeneous with brachytherapy implants in place. The bladder is partially decompressed around a Schaffer catheter and appears circumferentially thick walled. There is mild pericystic infiltration. A large posteriorly oriented bladder diverticulum measures up to 4 cm contains internal calculi. Skeletal structures: The skeletal structures are osteopenic. There is mild to moderate lumbosacral spondylosis. No lytic or blastic lesions are seen. IMPRESSION: 1. Suboptimal examination without oral and IV contrast. The Examination is also significantly degraded by streak and motion artifact. 2. There is rectosigmoid fecal impaction and moderate constipation. No bowel obstruction is seen. 3. Again seen is severe left hydronephrosis, likely related to an obstructing urothelial mass just below the ureteropelvic junction. This has not appreciably changed as compared to 02/16/2021. Neoplasm remains the diagnosis of exclusion. 4. The bladder is decompressed around a Schaffer catheter and appears thick walled. There is pericystic infiltration. Correlate with clinical findings and urinalysis. 5. Additional findings as above. 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 He is being managed for the following: #. History of dementia #. Likely metabolic encephalopathy #. Hydronephrosis: #. Bladder outlet obstruction #. Possible UTI/no sepsis #. Obstructing urothelial lesion In ER patient afebrile, no hypoxia. WBC: 17, BUN: 59, Cr: 2.0, UA: 1+leuk esterase, >30WBC, 1+bacteria, +COVID-[address] Head and CXR are unremarkable. Likely metabolic encephalopathy likely secondary to UTI/Covid/ABEBA on CKD on the background of existing dementia history. Urine cultures grew corynebacterium and CONS Admitting CTAP: Rectosigmoid fecal impaction/constipation noted, no bowel obstruction present. Redemonstration of severe left hydronephrosis likely due to obstructing urothelial mass just below the ureteropelvic junction and has not appreciably changed as compared to 02/16/2021. Concerns of pericystic infiltration. Recent treatment with Bactrim on 02/23/2021 for possible UTI. Patient was treated with IV antibiotics Urology evaluated the patient: No emergent intervention unless absolutely necessary. #. ABEBA on CKD III Admitting Cr: 2.0. Baseline~ 1.3 to 1.5 Likely secondary to dehydration and recent Bactrim use Creatinine improved to 1.31 #. COVID-19 Positive 03/12: +COVID-19 NAAT; +Household contacts 2.5-3 weeks ago. Admitting CXR fairly WNL; 03/13 CRP 8.63, 03/13 pro-Segrio negative. Likely decreased appetite past 2 weeks secondary to COVID infection. Patient stable on room air No COVID specific therapies #. Other chronic medical conditions: CAD s/p stents & CABG, HTN, prostate adenocarcinoma s/p seed implant, JANUARY [BiPAP and CPAP intolerant] Patient's family opted to have patient in hospice in a facility due to his poor prognosis with respect to worsening mental status, poor oral intake and chronic medical problems Patient discharge to facility hospice Total Time Total Time Spent Total Time Spent (In Minutes): 35 Total Time Includes: Examination of the Patient, Discharge Planning and Medication Reconciliation Discharge Plan Discharge Items Patient Disposition: Hospice - Medical Facility Reason For Visit: AMS, ABEBA Discharge Diagnosis: Metabolic encephalopathy Urinary tract infection Severe left hydronephrosis due to urothelial lesion Acute on chronic kidney disease COVID 19 infection Activity: As commented below Non-emergency contact: Churn Driller Helper Call non-emergency contact if: you have any medication questions and your symptoms worsen Follow-up/Referrals: Josseline Veras MD [Primary Care Provider] - Diet: Regular Diet Texture: Easy to Chew Addtl Attending Provider Instructions: Mr Morrison You were brought to the hospital for progressive worsening mental status and confusion. You were evaluated and found to have the above listed diagnoses. You received antibiotics. You were also found to have pelvic mass causing urinary outflow obstruction. You also tested positive for COVID 19 infection but has remained on room air. After conversations between your family and providers, you are being discharged to hospice at the nursing facility. It was a pleasure taking care of you. Pending Studies at Discharge: No Stand-Alone Forms: My [facility] Skilled Items Patient informed of condition?: Yes DNR: Yes Discharge Level of Care: Other Communicable Disease: Yes Discharge Prognosis: Deteriorating Lines: None Urinary Catheter: Yes Medications and DC Order Prescriptions: New lorazepam [Ativan] 0.5 mg tablet 0.5 mg buccal BID PRN (Reason: agitation) Qty: 14 RF: 0 morphine concentrate 100 mg/5 mL (20 mg/mL) solution 5 mg PO Q6H PRN (Reason: pain or respiratory distress) Qty: 30 RF: 0 Discontinued metoprolol succinate [Toprol XL] 25 mg tablet extended release 24 hr 12.5 mg PO QAM RF: 0 tamsulosin 0.4 mg capsule 0.4 mg PO DAILY Qty: 90 RF: 3 lisinopril 20 mg Tablet 20 mg PO BID RF: 0 nitroglycerin 0.4 mg Tablet, Sublingual 0.4 mg sublingual DIRECTED PRN (Reason: Chest Pain) RF: 0 atorvastatin 80 mg Tablet 80 mg PO QAM RF: 0 amlodipine 2.5 mg Tablet 2.5 mg PO QAM RF: 0 isosorbide mononitrate 30 mg Tablet Extended Release 24 Hr 30 mg PO QAM RF: 0 quetiapine 25 mg tablet 12.5 mg PO DAILY PRN (Reason: Agitation) RF: 0 oxycodone 5 mg Tablet 5 mg PO Q6H PRN (Reason: Pain) RF: 0 multivitamin Tablet 1 tab PO QAM RF: 0 Discharge Orders: Discharge Order (Routine); Ordered 03/18/21 Ordered By: Janet Mckeon Admission Data Admit Date/Time: 03/12/21 15:01 Attending Provider: Janet Mckeon I. Admit Provider: Tan Murcia Primary Care Provider: Josseline Veras Other Providers: Tan Murcia ; Drew Davis ; Jose Rafael Aldana
== END 2021-03-18 11:47 | disposition hospice, inpatient (51) | DRG 689 ==
LOC: ED 10:37 → EDINP 15:01 → SUATTDRO 15:01 → 2W 17:22